=== PATIENT | male | born 1965 | race Caucasian/White ===

== ENCOUNTER 2016-11-01 18:11 | Inpatient (IN) | payer BC ==
[~2016-11-01] VITALS: Ht 170.2 cm; Wt 61.2 kg
[2016-11-01] MEDS ORDERED: IV NORMAL SALINE 1000ML BAG 1,000 ML IV SCH (18:47)
[2016-11-01] MEDS ORDERED: NITROGLYCERIN SUBLINGUAL 0.4 MG BOTTLE OF 25. SL PRN (19:00)
[2016-11-01] MEDS ORDERED: ONDANSETRON PF 4 MG/2 ML VIAL. IV ONE (19:00)
[2016-11-01] MEDS ORDERED: FENTANYL PF 100 MCG/2 ML VIAL. IV PRN ×2 (19:00→22:15)
[2016-11-01] MEDS ORDERED: ASPIRIN 81 MG TAB.CHEW PO ONE (19:00)
[2016-11-01 19:26] LABS: BASO % 0 % (0-3); EOS % 3 % (0-3); HEMATOCRIT 43.1 % (39.0-53.0); HEMOGLOBIN 14.6 g/dL (13.0-17.5); LYMPH # 3.2 x10^3/uL (1.0-4.8); LYMPH % 31 % (24-48); MEAN CORPUSCULAR HEMOGLOBIN 31 pg (25-35); MEAN CORPUSCULAR HGB CONC 34 g/dL (31-37); MEAN CORPUSCULAR VOLUME 91 fL (79-100); MONO % 9 % (0-9); NEUT % 58 % (31-73); PLATELET COUNT 375 x10^3/uL (140-400); RED BLOOD COUNT 4.75 x10^6/uL (4.30-5.70); RED CELL DISTRIBUTION WIDTH 12.8 % (11.5-14.5); WHITE BLOOD COUNT 10.6 x10^3/uL (4.0-11.0)
[2016-11-01 19:41] LABS: CALCIUM 9.2 mg/dL (8.5-10.1); CREATININE 0.9 mg/dL (0.7-1.3); GFR 88.3; POTASSIUM 5.5 mmol/L (3.5-5.1)
[2016-11-01 19:47] LABS: ALBUMIN 3.7 g/dL (3.4-5.0); DIRECT BILIRUBIN 0.1 mg/dL (0.0-0.2); MAGNESIUM 2.2 mg/dL (1.8-2.4); TOTAL BILIRUBIN 0.3 mg/dL (0.2-1.0); TOTAL PROTEIN 7.4 g/dL (6.4-8.2)
[2016-11-01 19:56] LABS: CKMB INDEX 1.1 % (0-4); CKMB MASS 1.2 ng/mL (0.0-3.6)
--- NOTE | 2016-11-01 20:57 | PHYS DOC ---
Past Medical History Past Medical History: CAD, High Cholesterol, Hypertension, [facility] Past Surgical History: Other Additional Past Surgical Histo: HEART CATH STENTS X'S 2 Alcohol Use: Occasionally Drug Use: None Adult General Chief Complaint Chief Complaint: CHEST PAIN HPI HPI Patient is a 51 year old male who presents with complaint of substernal chest pain. Patient states his symptoms started approximately 1 hour prior to arrival. Patient states that he was driving in his car when symptoms began. The patient states that he thought it felt like indigestion, however started become substernal pressure. Patient states that he has had similar symptoms with history of coronary artery disease requiring placement of stents. Patient had mild nausea associated with symptoms. Patient rates his pain currently as 2 out of 10. The patient states that he took a full strength aspirin prior to arrival. Patient follows with Dr. Leon of cardiology as outpatient. Patient states that he last had a stress test proximate 1 year ago. Patient has not had a recent cardiac catheterization. Patient states that his current symptoms are consistent when he had his previous myocardial infarction. Review of Systems Review of Systems Constitutional: Denies fever or chills [] Eyes: Denies change in visual acuity, redness, or eye pain [] HENT: Denies nasal congestion or sore throat [] Respiratory: Denies cough or shortness of breath [] Cardiovascular: Chest pain [] GI: Nausea, denies abdominal pain, vomiting, bloody stools or diarrhea [] : Denies dysuria or hematuria [] Musculoskeletal: Denies back pain or joint pain [] Integument: Denies rash or skin lesions [] Neurologic: Denies headache, focal weakness or sensory changes [] Endocrine: Denies polyuria or polydipsia [] Current Medications Current Medications Current Medications Medications (Trade) Dose Ordered Sig/[facility] Start Time Stop Time Status Last Admin Dose Admin Aspirin 324 mg 324 mg 1X ONCE 11/01/16 19:00 11/01/16 19:00 DC Fentanyl Citrate (Fentanyl 2ml Vial) 50 mcg PRN Q15MIN PRN 11/01/16 19:00 11/02/16 18:59 Nitroglycerin (Nitrostat) 0.4 mg PRN Q5MIN PRN 11/01/16 19:00 11/02/16 18:59 Ondansetron HCl (Zofran) 4 mg 1X ONCE 11/01/16 19:00 11/01/16 19:12 DC 1/3/17 19:21 4 MG Sodium Chloride (Iv Sodium Chloride 0.9% 1000ml Bag) 1,000 ml @ 100 mls/hr Q10H 11/01/16 18:47 11/02/16 04:46 11/01/16 19:22 100 MLS/HR Allergies Allergies Allergies Coded Allergies Type Severity Reaction Last Updated Verified No Known Drug Allergies 11/01/16 No Physical Exam Physical Exam Constitutional: Well developed, well nourished, no acute distress, non-toxic appearance. [] HENT: Normocephalic, atraumatic, bilateral external ears normal, oropharynx moist, no oral exudates, nose normal. [] Eyes: PERRLA, EOMI, conjunctiva normal, no discharge. [] Neck: Normal range of motion, no tenderness, supple, no stridor. [] Cardiovascular:Heart rate regular rhythm, no murmur [] Lungs & Thorax: Bilateral breath sounds clear to auscultation [] Abdomen: Bowel sounds normal, soft, no tenderness, no masses, no pulsatile masses. [] Skin: Warm, dry, no erythema, no rash. [] Back: No tenderness, no CVA tenderness. [] Extremities: No tenderness, no cyanosis, no clubbing, ROM intact, no edema. [] Neurologic: Alert and oriented X 3, normal motor function, normal sensory function, no focal deficits noted. [] Current Patient Data Vital Signs Vital Signs Date Time Temp Pulse Resp B/P Pulse Ox O2 Delivery O2 Flow Rate FiO2 11/01/16 18:11 97.6 58 20 129/84 99 Room Air 97.6 Lab Values Laboratory Tests Test 11/01/16 19:17 White Blood Count 10.6x10^3/uL (4.0-11.0) Red Blood Count 4.75x10^6/uL (4.30-5.70) Hemoglobin 14.6g/dL (13.0-17.5) Hematocrit 43.1% (39.0-53.0) Mean Corpuscular Volume 91fL (79-100) Mean Corpuscular Hemoglobin 31pg (25-35) Mean Corpuscular Hemoglobin Concent 34g/dL (31-37) Red Cell Distribution Width 12.8% (11.5-14.5) Platelet Count 375x10^3/uL (140-400) Neutrophils (%) (Auto) 58% (31-73) Lymphocytes (%) (Auto) 31% (24-48) Monocytes (%) (Auto) 9% (0-9) Eosinophils (%) (Auto) 3% (0-3) Basophils (%) (Auto) 0% (0-3) Neutrophils # (Auto) 6.1x10^3uL (1.8-7.7) Lymphocytes # (Auto) 3.2x10^3/uL (1.0-4.8) Monocytes # (Auto) 0.9x10^3/uL (0.0-1.1) Eosinophils # (Auto) 0.3x10^3/uL (0.0-0.7) Basophils # (Auto) 0.0x10^3/uL (0.0-0.2) Sodium Level 142mmol/L (136-145) Potassium Level 5.5mmol/L (3.5-5.1) H Chloride Level 105mmol/L (98-107) Carbon Dioxide Level 31mmol/L (21-32) Anion Gap 6 (6-14) Blood Urea Nitrogen 12mg/dL (8-26) Creatinine 0.9mg/dL (0.7-1.3) Estimated GFR (Cockcroft-Gault) 88.3 Glucose Level 98mg/dL (70-99) Calcium Level 9.2mg/dL (8.5-10.1) Magnesium Level 2.2mg/dL (1.8-2.4) Total Bilirubin 0.3mg/dL (0.2-1.0) Direct Bilirubin 0.1mg/dL (0.0-0.2) Aspartate Amino Transferase (AST) 20U/L (15-37) Alanine Aminotransferase (ALT) 31U/L (16-63) Alkaline Phosphatase 89U/L (46-116) Creatine Kinase 107U/L (39-308) Creatine Kinase MB (Mass) 1.2ng/mL (0.0-3.6) Creatine Kinase MB Relative Index 1.1% (0-4) Troponin I Quantitative < 0.017ng/mL (0.000-0.055) NG-Qqz-U-Type Natriuretic Peptide 155pg/mL (0-124) H Total Protein 7.4g/dL (6.4-8.2) Albumin 3.7g/dL (3.4-5.0) Lipase 256U/L (73-393) Laboratory Tests 11/01/16 19:17 Laboratory Tests 11/01/16 19:17 EKG EKG Interpreted by me: Heart rate 80, sinus rhythm, normal intervals, leftward axis , T-wave inversions in leads V2 through V5, no acute ST elevations or depressions [] Radiology/Procedures Radiology/Procedures One view AP chest x-ray interpreted by me: No infiltrate, no effusion, normal cardiac silhouette [] Course & Med Decision Making Course & Med Decision Making Pertinent Labs and Imaging studies reviewed. (See chart for details) The patient's initial lab work does not reveal elevated cardiac enzymes. The patient has T-wave inversions in his EKG through contiguous leads. There is no EKG to compare with at this time, thus we will assume that these changes may be acute. The patient was treated with nitroglycerin with improvement in symptoms. Due to potential EKG abnormalities and patient's history of myocardial infarction, the patient will need to be admitted to the hospital for further workup and rule out. I spoke with Dr. Hanson of cardiology who will follow with patient in hospital. Dragon Disclaimer Dragon Disclaimer This electronic medical record was generated, in whole or in part, using a voice recognition dictation system. Departure Departure Impression: Primary Impression: Chest pain Additional Impressions: History of myocardial infarction Abnormal EKG Disposition: ADMITTED INPATIENT Admitting Physician: Other Condition: STABLE Referrals: TYREE LEON MD (PCP) Problem Qualifiers Primary Impression: Chest pain Chest pain type: unspecified Qualified Code: R07.9 - Chest pain, unspecified DAYTON BARTHOLOMEW MD Nov 01, 2016 20:57
[2016-11-01] MEDS ORDERED: ACETAMINOPHEN 325 MG TABLET. PO PRN (22:15)
[2016-11-01] MEDS ORDERED: ONDANSETRON PF 4 MG/2 ML VIAL. IV PRN (22:15)
[2016-11-01 22:36] VITALS: BP 133/86
[2016-11-01] MEDS: IV NORMAL SALINE 1000ML BAG 1,000 ML IV SCH (22:46)
[2016-11-01] MEDS ORDERED: ATOR40TA PO (23:30)
[2016-11-01] MEDS ORDERED: CARV12.5 PO (23:30)
[2016-11-01] MEDS ORDERED: PRAS10TA4 PO (23:30)
[2016-11-01] MEDS ORDERED: LISI-338 PO (23:30)
--- NOTE | 2016-11-01 23:32 | ACF ---
Admission Forms Criteria TELEMETRY CARE Telemetry Admission Guidelines (Place 'X' for any and all applicable criteria): Admission to telemetry [A] may be indicated for ANY ONE of the following(1)(2)(3 )(4)(5): [X]I. Cardiac disease, including ANY ONE of the following (9)(10)(11)(12)(13 ): [ ]a) Postacute PR [ ]b) Low-risk patients with ST-segment elevation PR who have undergone successful percutaneous coronary intervention [ ]c) Unstable angina [X]d) Suspected PR (until it is ruled out) [ ]e) Post cardiac surgery (first 48 to 72 hours unless complications occur) [ ]f) Acute arrhythmias (including significant tachycardia or bradycardia) [B] [ ]g) Firing of an implantable cardioverter defibrillator [C] [ ]h) Suspected pacemaker or implantable cardioverter defibrillator malfunction (10) [ ]i) New administration or adjustment of an antiarrhythmic drug [D ] [ ]j) Child admitted for acute congestive heart failure [ ]j) Long QT syndrome [ ]k) Advanced heart block (eg, second-degree Mobitz type II, third- degree heart block) [ ]l) Acute myocarditis or pericarditis [ ]m) Short-term (ambulatory or inpatient) monitoring after a cardiac procedure as indicated by ANY ONE of the following [E]: [ ]i) Electrophysiologic studies [ ]ii) Percutaneous coronary intervention with stent placement [ ]iii) Pacemaker placement with cardiac conduction defect [ ]iv) Implantable cardiac defibrillator placement [ ]II. Drug overdose or poisoning with substance that causes arrhythmias or QT prolongation (eg, phenothiazines, sympathomimetic agents, cyclic antidepressants, digitalis, antiarrhythmic drugs)(15) [ ]III. Short-term (ambulatory or inpatient) monitoring after therapeutic or diagnostic procedure requiring conscious sedation or anesthesia (eg, endoscopy, elective cardioversion) [ ]IV. Acute cerebrovascular even[F](18) [ ]V. Massive blood transfusion (eg, at least 10 units of packed red blood cells in 24 hours) [ ]. Variceal bleeding after endoscopy, sclerotherapy, or IV vasopressin [ ]VII. Uncorrected electrolyte abnormalities associated with an increased risk of dangerous arrhythmia [G]; examples include [ ]a) Hyperkalemia with attributable ECG changes [ ]b) Potassium greater than 6.5 mmol/L (mEq/L) in a patient without history of chronic renal disease [ ]c) Prolonged QT attributed to hypokalemia, hypomagnesemia, or hypocalcemia [ ]VIII.Unexplained syncope or other neurologic event suspected of being due to arrhythmia due to a finding that increases risk; examples include(19)(20)(21): [ ]a) High-risk ECG findings (eg, bifascicular block, bradycardia, abnormal QT interval, ventricular pre- excitation) [ ]b) History of previous syncope due to arrhythmia [ ]c) Abnormal ventricular function (eg, reduced ejection fraction ) [ ]d) Exertional or supine syncope [ ]e) Concerning syncope characteristics (eg, sudden loss of consciousness without prodrome) [ ]f) Family history of sudden [ ]g) Use of arrhythmogenic medication [ ]h) Suspected cardiac ischemia [ ]i) Known channelopathy (eg, long QT syndrome, Brugada syndrome, or catecholaminergic paroxysmal ventricular tachycardia) [ ]j) Known structural heart disease (eg, hypertrophic cardiomyopathy , severe valvular disease) [ ]k) Palpitations preceding syncope The original [employer] content created by [employer] has been revised. The portions of the content which have been revised are identified through the use of italic text or in bold, and [employer] has neither reviewed nor approved the modified material. All other unmodified content is copyright [employer] Please see references footnoted in the original [employer] edition 2016 Admission Criteria Met?: Yes MADHAVI MURPHY Nov 01, 2016 23:32
[2016-11-02] VITALS (16 sets, daily range): BP systolic 97–130; BP diastolic 65–89
--- NOTE | 2016-11-02 00:35 | HP ---
ADMIT DATE: 11/01/2016 CHIEF COMPLAINT: Chest pain. HISTORY OF PRESENT ILLNESS: The patient is a 51-year-old gentleman who presented with substernal chest pain that started approximately an hour prior to presentation to the Emergency Room. He relates that this started while driving home. Initially, it felt like indigestion; however, with persistence and worsening as well as radiation towards his neck, it reminded him more of the symptoms he had with previous heart attacks 3 and 6 years ago. He therefore presented immediately to the Emergency Room. On further questioning, he also admits to mild nausea associated with his symptoms. Denies any diaphoresis or shortness of breath. Have had no fevers or infectious symptoms recently. PAST MEDICAL HISTORY: CAD status post OR 3 and 6 years ago. Roving Winder is Dr. Leon. Hypertension, hypercholesterolemia. FAMILY HISTORY: Significant for premature heart disease with father of OR at 57. Paternal uncle, cardiac at 32. Mother also heart disease at age 63. SOCIAL HISTORY: No toxic habits. Lives with family. ALLERGIES: No known drug allergies. MEDICATIONS: MAR reconciled with home medications. REVIEW OF SYSTEMS: Positive as per HPI. Rest of organ system review is negative say for mild knee instability/pain due to old injury. He is scheduled for ACS repair next week. PHYSICAL EXAMINATION: VITAL SIGNS: From today show a blood pressure of 133/86, heart rate of 87, respiratory rate at 19. He is afebrile. GENERAL: This is a well-nourished 51-year-old gentleman, alert and oriented, in no acute distress. HEENT: Shows no scleral icterus. Oral mucosa is pink and moist. NECK: Supple, without any lymphadenopathy. LUNGS: Clear to auscultation bilaterally. HEART: Regular rate and rhythm without any murmurs. ABDOMEN: Has positive bowel sounds, soft, nontender. EXTREMITIES: Show no edema. SKIN: Warm, soft and dry without any rash. LABORATORY DATA: CBC with WBC of 10.6, hemoglobin 14.6, platelets of 375. Chemistries with a BUN and creatinine of 12 and 0.9, potassium at 5.5. Electrolytes otherwise within normal limit as are LFTs. Initial cardiac enzymes all negative. IMAGING: Chest x-ray in the Emergency Room reviewed by myself shows no cardiopulmonary abnormalities. ASSESSMENT AND PLAN: The patient is a 51-year-old gentleman with significant heart history, now presenting with chest pain reminiscent of his previous myocardial infarction symptoms. We will admit for serial enzymes and EKGs. Cardiac consult will be obtained. The patient relates that he had an echo about 2 years ago, exercise stress test within the past year by Dr. Leon. We will await further input. In the meantime, we will continue all his cardiac meds. We will start on PPI for prophylaxis as well as Lovenox. ALLEN HERRMANN MD DR: UR/nts JOB#: [id number] / [id number] TYREE Mackenzie MD [facility]
[2016-11-02 04:19] LABS: BASO # 0.1 x10^3/uL (0.0-0.2); BASO % 1 % (0-3); EOS % 4 % (0-3); HEMATOCRIT 43.5 % (39.0-53.0); HEMOGLOBIN 14.6 g/dL (13.0-17.5); LYMPH # 3.7 x10^3/uL (1.0-4.8); LYMPH % 33 % (24-48); MEAN CORPUSCULAR HEMOGLOBIN 30 pg (25-35); MEAN CORPUSCULAR HGB CONC 34 g/dL (31-37); MEAN CORPUSCULAR VOLUME 90 fL (79-100); MONO % 8 % (0-9); NEUT % 55 % (31-73); PLATELET COUNT 338 x10^3/uL (140-400); RED BLOOD COUNT 4.85 x10^6/uL (4.30-5.70); RED CELL DISTRIBUTION WIDTH 12.9 % (11.5-14.5); WHITE BLOOD COUNT 11.3 x10^3/uL (4.0-11.0)
[2016-11-02 04:41] LABS: CALCIUM 8.7 mg/dL (8.5-10.1); CREATININE 0.8 mg/dL (0.7-1.3); GFR 101.1; POTASSIUM 4.2 mmol/L (3.5-5.1)
[2016-11-02] MEDS ORDERED: HEPARIN 25,000UTS/500ML PREMIX 500 ML IV ONE (06:00)
[2016-11-02] MEDS ORDERED: HEPARIN for IV BOLUS 10,000 UNIT/10 ML VIAL. IV ONE (06:00)
[2016-11-02 06:34] LABS: INR 1.1 (0.8-1.1); PROTHROMBIN TIME PATIENT 13.6 SEC (11.7-14.0)
--- NOTE | 2016-11-02 06:43 | EKG ---
[facility] [address] [place] [address] Test Date: 2016-11-01 Test Time: 18:20:28 Pat Name: CARA SOUSA Department: Room: 110 1 Gender: M Form Layer: : 1965 Requested By: DAYTON BARTHOLOMEW Order Number: [id number] Reading MD: Brenda Peña Measurements Intervals [place] Rate: 80 P: 51 NV: 164 QRS: -15 QRSD: 70 T: 59 QT: 364 QTc: 423 Interpretive Statements SINUS RHYTHM LEFTWARD AXIS LOW LIMB LEAD VOLTAGE QRS(T) CONTOUR ABNORMALITY CONSISTENT WITH ANTEROSEPTAL INFARCT AGE UNDETERMINED T ABNORMALITY IN ANTERIOR LEADS Electronically Signed On 11-06-2016 21:46:35 KILN PACKER by Brenda Peña
[2016-11-02] MEDS: IV NORMAL SALINE 1000ML BAG 1,000 ML IV SCH (06:45)
--- NOTE | 2016-11-02 07:53 | EKG ---
[facility] [address] [place] [address] Test Date: 2016-11-02 Test Time: 07:53:09 Pat Name: CARA SOUSA Department: Room: 110 1 Gender: M Volcanology Teacher: BRITT : 1965 Requested By: ALLEN HERRMANN Order Number: [id number] Reading MD: Christophe Ruano Measurements Intervals [place] Rate: 80 P: 47 ME: 174 QRS: 4 QRSD: 70 T: 73 QT: 374 QTc: 435 Interpretive Statements SINUS RHYTHM LOW LIMB LEAD VOLTAGE QRS(T) CONTOUR ABNORMALITY CONSISTENT WITH POSSIBLE OLD ANTEROSEPTAL INFARCT ABNORMAL ECG RI6.01 Compared to ECG 03/08/2013 12:46:01 Left-axis deviation no longer present Myocardial infarct finding still present Electronically Signed On 11-06-2016 12:04:44 ORTHODONTIST by Christophe Ruano
[2016-11-02] MEDS ORDERED: CARVEDILOL 12.5 MG TABLET PO SCH (08:00)
--- NOTE | 2016-11-02 08:50 | RAD ---
Portable chest, 11/01/2016: History: Chest pain, hypertension Comparison is made to a study from 03/07/2013. The heart size and pulmonary vascularity are normal. No pulmonary infiltrates are seen. There is no evidence of pleural fluid. IMPRESSION: No acute cardiopulmonary abnormality is detected.
[2016-11-02] MEDS ORDERED: LISINOPRIL 5 MG TABLET. PO SCH (09:00)
[2016-11-02] MEDS ORDERED: PRASUGREL 10 MG TABLET. PO SCH (09:00)
[2016-11-02] MEDS ORDERED: IOHEXOL 300 MG/ML 100ML VIAL. ONE (09:42)
[2016-11-02] MEDS ORDERED: HEPARIN for ARTERIAL LINE 1,500 ML ONE (09:42)
[2016-11-02] MEDS ORDERED: LIDOCAINE 2% 20 ML VIAL. ONE (09:42)
--- NOTE | 2016-11-02 09:53 | PDOC2 ---
CARDIAC CONSULT DATE OF CONSULT Date of Consult DATE: 11/02/16 TIME: 09:38 REASON FOR CONSULT Reason for Consult: Chest pain REFERRING PHYSICIAN Referring Physician: Ryan SOURCE Source: Chart review, Patient HISTORY OF PRESENT ILLNESS HISTORY OF PRESENT ILLNESS This is a pleasant 51 yo male admitted for complains of chest pain. He was driving home yesterday when he started having squeezing "crushing" retrosternal nonradiating pain. He has had possibly a stomach flu over a week ago that made him had diarrhea and vomiting but since then he has been feeling intermittent bloating, indigestion symptoms that sometimes he takes baking soda. He does not take any pepcid or prilosec. He also has been feeling more sensation of skipping beats at rest. With his CP he denies any diaphoresis, palpitations, SOA, nausea or vomiting. Denies any VTE, falls, recent injury. No recent fever or chills. He has CAD and had a stent in 2009 and recently seen his lead janitor 08/2016 and had a normal stress test 03/2016 as well. He has been doing well activity tolerance lentz till his symptoms yesterday. His CP lasted from 5 PM yesterday to 3AM today. He has been compliant with his medications. PAST MEDICAL HISTORY Cardiovascular: CAD, HTN, Hyperlipidemia Pulmonary: No pertinent hx CENTRAL NERVOUS SYSTEM: Other (No pertinent history) GI: No pertinent hx Heme/Onc: No pertinent hx Hepatobiliary: No pertinent hx Psych: No pertinent hx Musculoskeletal: Osteoarthritis Rheumatologic: No pertinent hx Infectious disease: No pertinent hx ENT: No pertinent hx Renal/: No pertinent hx Endocrine: No pertinent hx Dermatology: No pertinent hx PAST SURGICAL HISTORY Past Surgical History: Arthroscopy (right knee) FAMILY HISTORY Family History: Coronary Artery Disease (father and fatherside uncles), Heart Disease (mother with CHF) CURRENT MEDICATIONS CURRENT MEDICATIONS Current Medications Medications (Trade) Dose Ordered Sig/Lupe Route PRN Reason Start Time Stop Time Status Last Admin Dose Admin Sodium Chloride (Iv Sodium Chloride 0.9% 1000ml Bag) 1,000 ml @ 100 mls/hr Q10H IV 11/01/16 18:47 11/02/16 04:46 DC 11/01/16 19:22 Ondansetron HCl 4 mg 4 mg 1X ONCE IV 11/01/16 19:00 11/01/16 19:12 DC 11/01/16 19:21 Sodium Chloride 1,000 ml @ 75 mls/hr [id number] IV 11/01/16 22:00 11/02/16 21:59 11/02/16 06:45 Heparin Sodium/ Dextrose 500 ml @ 0 mls/hr 1X ONCE IV 11/02/16 06:00 11/02/16 06:01 DC 11/02/16 06:42 Heparin Sodium (Porcine) 5,000 unit 1X ONCE IV 11/02/16 06:00 11/02/16 06:01 DC 11/02/16 06:37 ALLERGIES ALLERGIES: Coded Allergies: No Known Drug Allergies (Unverified , 11/01/16) ROS Review of System 14 point ROS PHYSICAL EXAM General: Alert, Oriented X3, Cooperative, No acute distress HEENT: Atraumatic, Mucous membr. moist/pink Lungs: Clear to auscultation, Normal air movement Heart: Regular rate, Normal S1, Normal S2, No murmurs Abdomen: Soft, No tenderness Extremities: No cyanosis, No edema Skin: No breakdown, No significant lesion Neuro: Normal speech, Sensation intact Psych/Mental Status: Mental status NL, Mood NL MUSCULOSKELETAL: Osteoarthritic changes both hands, Other (pectus excavatum) VITALS VITALS Vital Signs Date Time Temp Pulse Resp B/P Pulse Ox O2 Delivery O2 Flow Rate FiO2 11/02/16 02:52 97.9 81 19 130/79 98 Room Air 97.9 LABS Lab: Laboratory Tests Test 11/01/16 19:17 11/02/16 03:50 11/02/16 05:30 White Blood Count 10.6x10^3/uL (4.0-11.0) 11.3x10^3/uL (4.0-11.0) Red Blood Count 4.75x10^6/uL (4.30-5.70) 4.85x10^6/uL (4.30-5.70) Hemoglobin 14.6g/dL (13.0-17.5) 14.6g/dL (13.0-17.5) Hematocrit 43.1% (39.0-53.0) 43.5% (39.0-53.0) Mean Corpuscular Volume 91fL (79-100) 90fL (79-100) Mean Corpuscular Hemoglobin 31pg (25-35) 30pg (25-35) Mean Corpuscular Hemoglobin Concent 34g/dL (31-37) 34g/dL (31-37) Red Cell Distribution Width 12.8% (11.5-14.5) 12.9% (11.5-14.5) Platelet Count 375x10^3/uL (140-400) 338x10^3/uL (140-400) Neutrophils (%) (Auto) 58% (31-73) 55% (31-73) Lymphocytes (%) (Auto) 31% (24-48) 33% (24-48) Monocytes (%) (Auto) 9% (0-9) 8% (0-9) Eosinophils (%) (Auto) 3% (0-3) 4% (0-3) Basophils (%) (Auto) 0% (0-3) 1% (0-3) Neutrophils # (Auto) 6.1x10^3uL (1.8-7.7) 6.2x10^3uL (1.8-7.7) Lymphocytes # (Auto) 3.2x10^3/uL (1.0-4.8) 3.7x10^3/uL (1.0-4.8) Monocytes # (Auto) 0.9x10^3/uL (0.0-1.1) 0.9x10^3/uL (0.0-1.1) Eosinophils # (Auto) 0.3x10^3/uL (0.0-0.7) 0.4x10^3/uL (0.0-0.7) Basophils # (Auto) 0.0x10^3/uL (0.0-0.2) 0.1x10^3/uL (0.0-0.2) Sodium Level 142mmol/L (136-145) 144mmol/L (136-145) Potassium Level 5.5mmol/L (3.5-5.1) 4.2mmol/L (3.5-5.1) Chloride Level 105mmol/L (98-107) 106mmol/L (98-107) Carbon Dioxide Level 31mmol/L (21-32) 28mmol/L (21-32) Anion Gap 6 (6-14) 10 (6-14) Blood Urea Nitrogen 12mg/dL (8-26) 10mg/dL (8-26) Creatinine 0.9mg/dL (0.7-1.3) 0.8mg/dL (0.7-1.3) Estimated GFR (Cockcroft-Gault) 88.3 101.1 Glucose Level 98mg/dL (70-99) 97mg/dL (70-99) Calcium Level 9.2mg/dL (8.5-10.1) 8.7mg/dL (8.5-10.1) Magnesium Level 2.2mg/dL (1.8-2.4) Total Bilirubin 0.3mg/dL (0.2-1.0) Direct Bilirubin 0.1mg/dL (0.0-0.2) Aspartate Amino Transf (AST/SGOT) 20U/L (15-37) Alanine Aminotransferase (ALT/SGPT) 31U/L (16-63) Alkaline Phosphatase 89U/L (46-116) Creatine Kinase 107U/L (39-308) Creatine Kinase MB (Mass) 1.2ng/mL (0.0-3.6) Creatine Kinase MB Relative Index 1.1% (0-4) Troponin I Quantitative < 0.017ng/mL (0.000-0.055) 2.705ng/mL (0.000-0.055) MA-Vjb-G-Type Natriuretic Peptide 155pg/mL (0-124) Total Protein 7.4g/dL (6.4-8.2) Albumin 3.7g/dL (3.4-5.0) Lipase 256U/L (73-393) Prothrombin Time 13.6SEC (11.7-14.0) Prothromb Time International Ratio 1.1 (0.8-1.1) Activated Partial Thromboplast Time 32SEC (24-38) ASSESSMENT/PLAN ASSESSMENT/PLAN 1. NSTEMI: notable for chest pain. EKG SR with ST changes noted, Troponin normal then 2.7. Recommend C. Risks and benefits and agreeable to proceed. ASA and currently on hepatin drip. 2. CAD: PCI/stent 03/2010 to LAD. Continue with secondary prevention. TTE to commence as well. 3. GERD: on effient at home due to possible stomach irritation and was taken off ASA. Will place on PPI. 4. HTN: controlled. Will continue BB/ACEi per BP response post cath 5. HLP: lipi panel, will continue statin and adjust per level 6. Right knee meniscal tear: due for right knee arthroscopic procedure next week and has been cancelled pending cardiac workup. Problems: JESSICA MONTANO APRN Nov 02, 2016 09:53
[2016-11-02] MEDS ORDERED: FENTANYL PF 100 MCG/2 ML VIAL. ONE (10:19)
[2016-11-02] MEDS ORDERED: MIDAZOLAM HCL 2 MG/2 ML VIAL. ONE (10:20)
[2016-11-02 10:23] LABS: CHOLESTEROL/HDL RATIO 3.2
[2016-11-02] MEDS ORDERED: FENTANYL PF 100 MCG/2 ML VIAL. IV ONE (10:30)
[2016-11-02] MEDS ORDERED: MIDAZOLAM HCL 2 MG/2 ML VIAL. IV ONE (10:30)
[2016-11-02] MEDS ORDERED: LIDOCAINE 1% / SOD BICARB 8.4% 20 ML VIAL. IJ ONE (10:30)
[2016-11-02] MEDS ORDERED: IOHEXOL 300 MG/ML 100ML VIAL. IART ONE (10:30)
[2016-11-02] MEDS ORDERED: BIVALIRUDIN 250 MG VIAL IV ONE (10:32)
[2016-11-02] MEDS ORDERED: CONTRAST GIVEN MC PRN (10:45)
--- NOTE | 2016-11-02 11:21 | PDOC4 ---
Operative Note Operative Note Brief cath note. LV 108/14, AO 104 80 Coronaries. Left main. 60% proximal lesion. LAD. 60% restenosis in mid stent. LAD wraps around the apex. LCX. 20% mid lesion, 75% proximal RI branch lesion. RCA. Non dominant. Patent stent. LV. EF estimated at 35%. Distal inferior and apical hypokinesis. Will restart heparin in 4 hours. DC Effient. Obtain old records. Will discuss with CV and CV surgery with possible future CABG (Effient on hold). Discussed with the patient and his family. Full report to follow. RAYMOND GUTIERREZ MD Nov 02, 2016 11:21
[2016-11-02] MEDS ORDERED: IV NORMAL SALINE 1000ML BAG 1,000 ML IV SCH (11:22)
[2016-11-02] MEDS ORDERED: 0.9 % SODIUM CHLORIDE 10 ML DISP.SYRIN. IV PRN (11:30)
[2016-11-02] MEDS ORDERED: NITROGLYCERIN SUBLINGUAL 0.4 MG BOTTLE OF 25. SL PRN (11:30)
[2016-11-02] MEDS: PANTOPRAZOLE 40 MG TABLET. PO SCH (13:52)
--- NOTE | 2016-11-02 13:57 | PDOC ---
PROGRESS NOTES Chief Complaint Chief Complaint ACS ASSESSMENT AND PLAN: 1. AMI: cath done this AM: 60% LAD occlusion mid-stent, 60% occlusion L main. candidate for CABG. consult to CV surgery 2. Anticoag: restart heparin post CABG. hold oral anti-plt agents (in anticipation of surgery) 3. HTN: cont home meds 4. HLD: not on statin. obtain lipid profile. 5. Prophylaxis: PPI, (heparin) Vitals Vitals Vital Signs Date Time Temp Pulse Resp B/P Pulse Ox O2 Delivery O2 Flow Rate FiO2 11/02/16 13:00 74 10 107/72 98 Room Air 11/02/16 11:15 97.8 97.8 11/02/16 10:59 2.0 Physical Exam General: Alert, Oriented X3, Cooperative, No acute distress Heart: Regular rate, Normal S1, Normal S2, No murmurs Lungs: Clear Abdomen: Normal bowel sounds, Soft, No tenderness Extremities: No cyanosis, No edema Skin: No breakdown Labs LABS Laboratory Tests Test 11/01/16 19:17 11/02/16 03:50 11/02/16 05:30 White Blood Count 10.6x10^3/uL (4.0-11.0) 11.3x10^3/uL (4.0-11.0) Red Blood Count 4.75x10^6/uL (4.30-5.70) 4.85x10^6/uL (4.30-5.70) Hemoglobin 14.6g/dL (13.0-17.5) 14.6g/dL (13.0-17.5) Hematocrit 43.1% (39.0-53.0) 43.5% (39.0-53.0) Mean Corpuscular Volume 91fL (79-100) 90fL (79-100) Mean Corpuscular Hemoglobin 31pg (25-35) 30pg (25-35) Mean Corpuscular Hemoglobin Concent 34g/dL (31-37) 34g/dL (31-37) Red Cell Distribution Width 12.8% (11.5-14.5) 12.9% (11.5-14.5) Platelet Count 375x10^3/uL (140-400) 338x10^3/uL (140-400) Neutrophils (%) (Auto) 58% (31-73) 55% (31-73) Lymphocytes (%) (Auto) 31% (24-48) 33% (24-48) Monocytes (%) (Auto) 9% (0-9) 8% (0-9) Eosinophils (%) (Auto) 3% (0-3) 4% (0-3) Basophils (%) (Auto) 0% (0-3) 1% (0-3) Neutrophils # (Auto) 6.1x10^3uL (1.8-7.7) 6.2x10^3uL (1.8-7.7) Lymphocytes # (Auto) 3.2x10^3/uL (1.0-4.8) 3.7x10^3/uL (1.0-4.8) Monocytes # (Auto) 0.9x10^3/uL (0.0-1.1) 0.9x10^3/uL (0.0-1.1) Eosinophils # (Auto) 0.3x10^3/uL (0.0-0.7) 0.4x10^3/uL (0.0-0.7) Basophils # (Auto) 0.0x10^3/uL (0.0-0.2) 0.1x10^3/uL (0.0-0.2) Sodium Level 142mmol/L (136-145) 144mmol/L (136-145) Potassium Level 5.5mmol/L (3.5-5.1) 4.2mmol/L (3.5-5.1) Chloride Level 105mmol/L (98-107) 106mmol/L (98-107) Carbon Dioxide Level 31mmol/L (21-32) 28mmol/L (21-32) Anion Gap 6 (6-14) 10 (6-14) Blood Urea Nitrogen 12mg/dL (8-26) 10mg/dL (8-26) Creatinine 0.9mg/dL (0.7-1.3) 0.8mg/dL (0.7-1.3) Estimated GFR (Cockcroft-Gault) 88.3 101.1 Glucose Level 98mg/dL (70-99) 97mg/dL (70-99) Calcium Level 9.2mg/dL (8.5-10.1) 8.7mg/dL (8.5-10.1) Magnesium Level 2.2mg/dL (1.8-2.4) Total Bilirubin 0.3mg/dL (0.2-1.0) Direct Bilirubin 0.1mg/dL (0.0-0.2) Aspartate Amino Transf (AST/SGOT) 20U/L (15-37) Alanine Aminotransferase (ALT/SGPT) 31U/L (16-63) Alkaline Phosphatase 89U/L (46-116) Creatine Kinase 107U/L (39-308) Creatine Kinase MB (Mass) 1.2ng/mL (0.0-3.6) Creatine Kinase MB Relative Index 1.1% (0-4) Troponin I Quantitative < 0.017ng/mL (0.000-0.055) 2.705ng/mL (0.000-0.055) VQ-Goj-T-Type Natriuretic Peptide 155pg/mL (0-124) Total Protein 7.4g/dL (6.4-8.2) Albumin 3.7g/dL (3.4-5.0) Lipase 256U/L (73-393) Triglycerides Level 84mg/dL (0-150) Cholesterol Level 112mg/dL (0-200) LDL Cholesterol, Calculated 60mg/dL (0-100) VLDL Cholesterol, Calculated 17mg/dL (0-40) HDL Cholesterol 35mg/dL (40-60) Cholesterol/HDL Ratio 3.2 Thyroid Stimulating Hormone (TSH) 1.785uIU/mL (0.358-3.74) Prothrombin Time 13.6SEC (11.7-14.0) Prothromb Time International Ratio 1.1 (0.8-1.1) Activated Partial Thromboplast Time 32SEC (24-38) Review of Systems Review of Systems no CP, no SOB Comment Review of Relevant I have reviewed the following items kojo (where applicable) has been applied. Labs Laboratory Tests Test 11/01/16 19:17 11/02/16 03:50 11/02/16 05:30 White Blood Count 10.6x10^3/uL (4.0-11.0) 11.3x10^3/uL (4.0-11.0) Red Blood Count 4.75x10^6/uL (4.30-5.70) 4.85x10^6/uL (4.30-5.70) Hemoglobin 14.6g/dL (13.0-17.5) 14.6g/dL (13.0-17.5) Hematocrit 43.1% (39.0-53.0) 43.5% (39.0-53.0) Mean Corpuscular Volume 91fL (79-100) 90fL (79-100) Mean Corpuscular Hemoglobin 31pg (25-35) 30pg (25-35) Mean Corpuscular Hemoglobin Concent 34g/dL (31-37) 34g/dL (31-37) Red Cell Distribution Width 12.8% (11.5-14.5) 12.9% (11.5-14.5) Platelet Count 375x10^3/uL (140-400) 338x10^3/uL (140-400) Neutrophils (%) (Auto) 58% (31-73) 55% (31-73) Lymphocytes (%) (Auto) 31% (24-48) 33% (24-48) Monocytes (%) (Auto) 9% (0-9) 8% (0-9) Eosinophils (%) (Auto) 3% (0-3) 4% (0-3) Basophils (%) (Auto) 0% (0-3) 1% (0-3) Neutrophils # (Auto) 6.1x10^3uL (1.8-7.7) 6.2x10^3uL (1.8-7.7) Lymphocytes # (Auto) 3.2x10^3/uL (1.0-4.8) 3.7x10^3/uL (1.0-4.8) Monocytes # (Auto) 0.9x10^3/uL (0.0-1.1) 0.9x10^3/uL (0.0-1.1) Eosinophils # (Auto) 0.3x10^3/uL (0.0-0.7) 0.4x10^3/uL (0.0-0.7) Basophils # (Auto) 0.0x10^3/uL (0.0-0.2) 0.1x10^3/uL (0.0-0.2) Sodium Level 142mmol/L (136-145) 144mmol/L (136-145) Potassium Level 5.5mmol/L (3.5-5.1) 4.2mmol/L (3.5-5.1) Chloride Level 105mmol/L (98-107) 106mmol/L (98-107) Carbon Dioxide Level 31mmol/L (21-32) 28mmol/L (21-32) Anion Gap 6 (6-14) 10 (6-14) Blood Urea Nitrogen 12mg/dL (8-26) 10mg/dL (8-26) Creatinine 0.9mg/dL (0.7-1.3) 0.8mg/dL (0.7-1.3) Estimated GFR (Cockcroft-Gault) 88.3 101.1 Glucose Level 98mg/dL (70-99) 97mg/dL (70-99) Calcium Level 9.2mg/dL (8.5-10.1) 8.7mg/dL (8.5-10.1) Magnesium Level 2.2mg/dL (1.8-2.4) Total Bilirubin 0.3mg/dL (0.2-1.0) Direct Bilirubin 0.1mg/dL (0.0-0.2) Aspartate Amino Transf (AST/SGOT) 20U/L (15-37) Alanine Aminotransferase (ALT/SGPT) 31U/L (16-63) Alkaline Phosphatase 89U/L (46-116) Creatine Kinase 107U/L (39-308) Creatine Kinase MB (Mass) 1.2ng/mL (0.0-3.6) Creatine Kinase MB Relative Index 1.1% (0-4) Troponin I Quantitative < 0.017ng/mL (0.000-0.055) 2.705ng/mL (0.000-0.055) AA-Lwe-H-Type Natriuretic Peptide 155pg/mL (0-124) Total Protein 7.4g/dL (6.4-8.2) Albumin 3.7g/dL (3.4-5.0) Lipase 256U/L (73-393) Triglycerides Level 84mg/dL (0-150) Cholesterol Level 112mg/dL (0-200) LDL Cholesterol, Calculated 60mg/dL (0-100) VLDL Cholesterol, Calculated 17mg/dL (0-40) HDL Cholesterol 35mg/dL (40-60) Cholesterol/HDL Ratio 3.2 Thyroid Stimulating Hormone (TSH) 1.785uIU/mL (0.358-3.74) Prothrombin Time 13.6SEC (11.7-14.0) Prothromb Time International Ratio 1.1 (0.8-1.1) Activated Partial Thromboplast Time 32SEC (24-38) Laboratory Tests Test 11/01/16 19:17 11/02/16 03:50 11/02/16 05:30 White Blood Count 10.6x10^3/uL (4.0-11.0) 11.3x10^3/uL (4.0-11.0) Red Blood Count 4.75x10^6/uL (4.30-5.70) 4.85x10^6/uL (4.30-5.70) Hemoglobin 14.6g/dL (13.0-17.5) 14.6g/dL (13.0-17.5) Hematocrit 43.1% (39.0-53.0) 43.5% (39.0-53.0) Mean Corpuscular Volume 91fL (79-100) 90fL (79-100) Mean Corpuscular Hemoglobin 31pg (25-35) 30pg (25-35) Mean Corpuscular Hemoglobin Concent 34g/dL (31-37) 34g/dL (31-37) Red Cell Distribution Width 12.8% (11.5-14.5) 12.9% (11.5-14.5) Platelet Count 375x10^3/uL (140-400) 338x10^3/uL (140-400) Neutrophils (%) (Auto) 58% (31-73) 55% (31-73) Lymphocytes (%) (Auto) 31% (24-48) 33% (24-48) Monocytes (%) (Auto) 9% (0-9) 8% (0-9) Eosinophils (%) (Auto) 3% (0-3) 4% (0-3) Basophils (%) (Auto) 0% (0-3) 1% (0-3) Neutrophils # (Auto) 6.1x10^3uL (1.8-7.7) 6.2x10^3uL (1.8-7.7) Lymphocytes # (Auto) 3.2x10^3/uL (1.0-4.8) 3.7x10^3/uL (1.0-4.8) Monocytes # (Auto) 0.9x10^3/uL (0.0-1.1) 0.9x10^3/uL (0.0-1.1) Eosinophils # (Auto) 0.3x10^3/uL (0.0-0.7) 0.4x10^3/uL (0.0-0.7) Basophils # (Auto) 0.0x10^3/uL (0.0-0.2) 0.1x10^3/uL (0.0-0.2) Sodium Level 142mmol/L (136-145) 144mmol/L (136-145) Potassium Level 5.5mmol/L (3.5-5.1) 4.2mmol/L (3.5-5.1) Chloride Level 105mmol/L (98-107) 106mmol/L (98-107) Carbon Dioxide Level 31mmol/L (21-32) 28mmol/L (21-32) Anion Gap 6 (6-14) 10 (6-14) Blood Urea Nitrogen 12mg/dL (8-26) 10mg/dL (8-26) Creatinine 0.9mg/dL (0.7-1.3) 0.8mg/dL (0.7-1.3) Estimated GFR (Cockcroft-Gault) 88.3 101.1 Glucose Level 98mg/dL (70-99) 97mg/dL (70-99) Calcium Level 9.2mg/dL (8.5-10.1) 8.7mg/dL (8.5-10.1) Magnesium Level 2.2mg/dL (1.8-2.4) Total Bilirubin 0.3mg/dL (0.2-1.0) Direct Bilirubin 0.1mg/dL (0.0-0.2) Aspartate Amino Transf (AST/SGOT) 20U/L (15-37) Alanine Aminotransferase (ALT/SGPT) 31U/L (16-63) Alkaline Phosphatase 89U/L (46-116) Creatine Kinase 107U/L (39-308) Creatine Kinase MB (Mass) 1.2ng/mL (0.0-3.6) Creatine Kinase MB Relative Index 1.1% (0-4) Troponin I Quantitative < 0.017ng/mL (0.000-0.055) 2.705ng/mL (0.000-0.055) DV-Rmh-A-Type Natriuretic Peptide 155pg/mL (0-124) Total Protein 7.4g/dL (6.4-8.2) Albumin 3.7g/dL (3.4-5.0) Lipase 256U/L (73-393) Triglycerides Level 84mg/dL (0-150) Cholesterol Level 112mg/dL (0-200) LDL Cholesterol, Calculated 60mg/dL (0-100) VLDL Cholesterol, Calculated 17mg/dL (0-40) HDL Cholesterol 35mg/dL (40-60) Cholesterol/HDL Ratio 3.2 Thyroid Stimulating Hormone (TSH) 1.785uIU/mL (0.358-3.74) Prothrombin Time 13.6SEC (11.7-14.0) Prothromb Time International Ratio 1.1 (0.8-1.1) Activated Partial Thromboplast Time 32SEC (24-38) Medications Current Medications Aspirin 324 mg 324 mg 1X ONCE PO ; Start 11/01/16 at 19:00; Stop 11/01/16 at 19: 00; Status DC Sodium Chloride (Iv Sodium Chloride 0.9% 1000ml Bag) 1,000 ml @ 100 mls/hr Q10H IV Last administered on 11/01/16 19:22; Start 11/01/16 at 18:47; Stop at 04:46; Status DC Fentanyl Citrate (Fentanyl 2ml Vial) 50 mcg PRN Q15MIN PRN IV PAIN GREATER THAN 3/10; Start 11/01/16 at 19:00; Stop 11/02/16 at 18:59 Ondansetron HCl (Zofran) 4 mg 1X ONCE IV Last administered on 11/01/16 19:21; Start 11/01/16 at 19:00; Stop 11/01/16 at 19:12; Status DC Nitroglycerin (Nitrostat) 0.4 mg PRN Q5MIN PRN SL CP RATING > 1/10; Start at 19:00; Stop 11/02/16 at 18:59 Ondansetron HCl (Zofran) 4 mg PRN Q8HRS PRN IV NAUSEA/VOMITING; Start 11/01/16 at 22:15; Stop 11/02/16 at 22:14 Fentanyl Citrate 50 mcg 50 mcg PRN Q2HR PRN IV PAIN; Start 11/01/16 at 22:15; Stop 11/02/16 at 22:14 Sodium Chloride (Iv Sodium Chloride 0.9% 1000ml Bag) 1,000 ml @ 75 mls/hr [id number] IV Last administered on 11/02/16 06:45; Start 11/01/16 at 22:00; Stop at 12:27; Status DC Acetaminophen (Tylenol) 650 mg PRN Q4HRS PRN PO FEVER; Start 11/01/16 at 22:15; Stop 11/02/16 at 22:14 Atorvastatin Calcium (Lipitor) 40 mg HS PO ; Start 11/02/16 at 21:00 Carvedilol (Coreg) 12.5 mg BIDWMEALS PO ; Start 11/02/16 at 08:00; Stop 11/02/16 at 12:27; Status DC Lisinopril (Prinivil) 5 mg BID PO ; Start 11/02/16 at 09:00; Stop 11/02/16 at 12: 11; Status DC Prasugrel 10 mg 10 mg DAILY PO ; Start 11/02/16 at 09:00; Stop 11/02/16 at 11:23; Status DC Heparin Sodium/ Dextrose 500 ml @ 0 mls/hr 1X ONCE IV Last administered on 11/02 06:42; Start 11/02/16 at 06:00; Stop 11/02/16 at 06:01; Status DC Heparin Sodium (Porcine) 5,000 unit 1X ONCE IV Last administered on 11/02/16 06:37; Start 11/02/16 at 06:00; Stop 11/02/16 at 06:01; Status DC Iohexol 100 ml 100 ml STK-MED ONCE .ROUTE ; Start 11/02/16 at 09:42; Stop at 09:43; Status DC Heparin Sodium/ Sodium Chloride 1,500 ml @ As Directed STK-MED ONCE .ROUTE ; Start 11/02/16 at 09:42; Stop 11/02/16 at 09:43; Status DC Lidocaine HCl 20 ml STK-MED ONCE .ROUTE ; Start 11/02/16 at 09:42; Stop 11/02/16 at 09:43; Status DC Fentanyl Citrate (Fentanyl 2ml Vial) 100 mcg STK-MED ONCE .ROUTE ; Start at 10:19; Stop 11/02/16 at 10:20; Status DC Midazolam HCl (Versed) 2 mg STK-MED ONCE .ROUTE ; Start 11/02/16 at 10:20; Stop 11/02/16 at 10:21; Status DC Heparin Sodium/ Sodium Chloride 1,000 unit 1X ONCE IART Last administered on 10:58; Start 11/02/16 at 10:30; Stop 11/02/16 at 10:33; Status DC Lidocaine/Sodium Bicarbonate (Buffered Lidocaine 1%) 16 ml 1X ONCE IJ Last administered on 11/02/16 10:30; Start 11/02/16 at 10:30; Stop 11/02/16 at 10:33; Status DC Midazolam HCl (Versed) 2 mg 1X ONCE IV Last administered on 11/02/16 10:59; Start 11/02/16 at 10:30; Stop 11/02/16 at 10:33; Status DC Fentanyl Citrate (Fentanyl 2ml Vial) 50 mcg 1X ONCE IV Last administered on 10:59; Start 11/02/16 at 10:30; Stop 11/02/16 at 10:33; Status DC Iohexol (Omnipaque 300 Mg/ml) 100 ml 1X ONCE IART Last administered on 10:58; Start 11/02/16 at 10:30; Stop 11/02/16 at 10:33; Status DC Bivalirudin (Angiomax) 250 mg STK-MED ONCE IV ; Start 11/02/16 at 10:32; Stop 11/02/16 at 10:33; Status DC Info (Do NOT chart on this entry -- for MONITORING) 1 each PRN DAILY PRN MC SEE COMMENTS; Start 11/02/16 at 10:45; Stop 11/04/16 at 10:44 Sodium Chloride 3 ml 3 ml QSHIFT PRN IV AFTER MEDS AND BLOOD DRAWS; Start at 11:30 Sodium Chloride (Iv Sodium Chloride 0.9% 1000ml Bag) 1,000 ml @ 60 mls/hr [id number] IV ; Start 11/02/16 at 11:22; Stop 11/02/16 at 21:21 Aspirin (Ecotrin) 81 mg [id number] PO ; Start 11/03/16 at 08:00 Nitroglycerin (Nitrostat) 0.4 mg PRN Q5MIN PRN SL CHEST PAIN; Start 11/02/16 at 11:30 Carvedilol (Coreg) 3.125 mg BIDWMEALS PO ; Start 11/02/16 at 17:00 Lisinopril (Prinivil) 2.5 mg DAILY PO ; Start 11/03/16 at 09:00 Pantoprazole Sodium (Protonix) 40 mg DAILYAC PO ; Start 11/02/16 at 13:00 Active Scripts Active Reported Lipitor (Atorvastatin Calcium) 40 Mg Tablet 40 Mg PO DAILY Coreg (Carvedilol) 12.5 Mg Tablet 1 Tab PO BID Lisinopril 5 Mg Tablet 5 Mg PO BID Effient (Prasugrel Hcl) 10 Mg Tablet 1 Tab PO DAILY Vitals/I & O Vital Sign - Last 24 Hours 11/01/16 11/01/16 11/01/16 11/01/16 18:11 18:30 19:00 19:30 Temp 97.6 97.6 Pulse 58 60 78 78 Resp 20 B/P 129/84 129/84 128/88 119/79 Pulse Ox 99 98 98 98 O2 Delivery Room Air Room Air Room Air 11/01/16 11/01/16 11/01/16 11/01/16 20:00 20:30 21:00 21:30 Pulse 78 78 84 84 B/P 117/80 129/82 121/78 118/83 Pulse Ox 99 98 97 99 O2 Delivery Room Air Room Air Room Air Room Air 11/01/16 11/01/16 11/01/16 11/02/16 22:00 22:36 22:36 02:52 Temp 97.9 97.9 97.9 97.9 97.9 97.9 Pulse 87 87 81 Resp 19 19 19 B/P 133/86 133/86 130/79 Pulse Ox 98 98 98 O2 Delivery Room Air Room Air Room Air Room Air 11/02/16 11/02/16 11/02/16 11/02/16 08:00 08:00 09:00 10:00 Temp 98.0 98.0 Pulse 76 76 80 Resp 12 18 10 B/P 111/78 97/68 113/69 Pulse Ox 98 99 98 O2 Delivery Room Air Room Air Room Air Room Air 11/02/16 11/02/16 11/02/16 11/02/16 10:52 10:59 11:15 11:30 Temp 97.8 97.8 Pulse 75 72 72 Resp 24 24 12 10 B/P 101/79 101/71 Pulse Ox 99 97 98 97 O2 Delivery Room Air Nasal Cannula Room Air Room Air O2 Flow Rate 2.0 11/02/16 11/02/16 11/02/16 11/02/16 11:45 12:00 12:00 12:30 Pulse 76 76 76 Resp 10 13 11 B/P 99/65 103/74 109/77 Pulse Ox 99 98 98 O2 Delivery Room Air Room Air Room Air Room Air 11/02/16 13:00 Pulse 74 Resp 10 B/P 107/72 Pulse Ox 98 O2 Delivery Room Air Intake and Output 11/01/16 11/01/16 11/02/16 15:00 23:00 07:00 Intake Total 0 ml Balance 0 ml ALLEN HERRMANN MD Nov 02, 2016 13:57
[2016-11-02] MEDS ORDERED: HEPARIN 25,000UTS/500ML PREMIX 500 ML IV PRN (15:00)
--- NOTE | 2016-11-02 15:17 | PDOC2 ---
CONSULT Date of Consult Date of Consult DATE: 11/02/16 TIME: 15:14 Reason for Consult Reason for Consult: Non-STEMI Ischemic artery myopathy Left mainstem coronary artery disease Referring Physician Referring Physician: Christophe Ruano Identification/Chief Complaint Chief Complaint Chest pain Source Source: Chart review, Patient History of Present Illness Reason for Visit: Mr Bingham is a 51-year-old male, with a history of ischemic heart disease status post PCI to the LAD and RCA, previous history of myocardial infarction, who presented to [facility] yesterday following an episode of severe chest pain. His last analogous episode was approximately 3 years ago. His troponin peaked at 2.5. With his CP he denies any diaphoresis, palpitations, SOA, nausea or vomiting. He went on to have a coronary angiogram today which demonstrated 60% left main disease, 70% in-stent LAD stenosis, and a patent stent in a nondominant RCA. His LV gram showed an ejection fraction of 35%. Transthoracic echo although show that his EF was 15-20% with the septum, apex and inferior wall all being akinetic. I was consulted to consider the patient for surgical revascularization. Past Medical History Cardiovascular: CAD, HTN, Hyperlipidemia Pulmonary: No pertinent hx CENTRAL NERVOUS SYSTEM: Other (No pertinent history) GI: No pertinent hx Heme/Onc: No pertinent hx Hepatobiliary: No pertinent hx Psych: No pertinent hx Musculoskeletal: Osteoarthritis Rheumatologic: No pertinent hx Infectious disease: No pertinent hx ENT: No pertinent hx Renal/: No pertinent hx Endocrine: No pertinent hx Dermatology: No pertinent hx Past Surgical History Past Surgical History: Arthroscopy (right knee) Family History Family History: Coronary Artery Disease (father and fatherside uncles), Heart Disease (mother with CHF) Social History No ALCOHOL: rare Drugs: None Lives: with Family Current Problem List Problem List Problems Medical Problems: (1) Abnormal EKG Status: Acute (2) Chest pain Status: Acute (3) History of myocardial infarction Status: Acute Current Medications Current Medications Current Medications Aspirin 324 mg 324 mg 1X ONCE PO ; Start 11/01/16 at 19:00; Stop 11/01/16 at 19: 00; Status DC Sodium Chloride (Iv Sodium Chloride 0.9% 1000ml Bag) 1,000 ml @ 100 mls/hr Q10H IV Last administered on 11/01/16t 19:22; Start 11/01/16 at 18:47; Stop at 04:46; Status DC Fentanyl Citrate (Fentanyl 2ml Vial) 50 mcg PRN Q15MIN PRN IV PAIN GREATER THAN 3/10; Start 11/01/16 at 19:00; Stop 11/02/16 at 18:59 Ondansetron HCl (Zofran) 4 mg 1X ONCE IV Last administered on 11/01/16 19:21; Start 11/01/16 at 19:00; Stop 11/01/16 at 19:12; Status DC Nitroglycerin (Nitrostat) 0.4 mg PRN Q5MIN PRN SL CP RATING > 1/10; Start at 19:00; Stop 11/02/16 at 18:59 Ondansetron HCl (Zofran) 4 mg PRN Q8HRS PRN IV NAUSEA/VOMITING; Start 11/01/16 at 22:15; Stop 11/02/16 at 22:14 Fentanyl Citrate 50 mcg 50 mcg PRN Q2HR PRN IV PAIN; Start 11/01/16 at 22:15; Stop 11/02/16 at 22:14 Sodium Chloride (Iv Sodium Chloride 0.9% 1000ml Bag) 1,000 ml @ 75 mls/hr [id number] IV Last administered on 11/02/16 06:45; Start 11/01/16 at 22:00; Stop at 12:27; Status DC Acetaminophen (Tylenol) 650 mg PRN Q4HRS PRN PO FEVER; Start 11/01/16 at 22:15; Stop 11/02/16 at 22:14 Atorvastatin Calcium (Lipitor) 40 mg HS PO ; Start 11/02/16 at 21:00 Carvedilol (Coreg) 12.5 mg BIDWMEALS PO ; Start 11/02/16 at 08:00; Stop 11/02/16 at 12:27; Status DC Lisinopril (Prinivil) 5 mg BID PO ; Start 11/02/16 at 09:00; Stop 11/02/16 at 12: 11; Status DC Prasugrel 10 mg 10 mg DAILY PO ; Start 11/02/16 at 09:00; Stop 11/02/16 at 11:23; Status DC Heparin Sodium/ Dextrose 500 ml @ 0 mls/hr 1X ONCE IV Last administered on 11/02 06:42; Start 11/02/16 at 06:00; Stop 11/02/16 at 06:01; Status DC Heparin Sodium (Porcine) 5,000 unit 1X ONCE IV Last administered on 11/02/16 06:37; Start 11/02/16 at 06:00; Stop 11/02/16 at 06:01; Status DC Iohexol 100 ml 100 ml STK-MED ONCE .ROUTE ; Start 11/02/16 at 09:42; Stop at 09:43; Status DC Heparin Sodium/ Sodium Chloride 1,500 ml @ As Directed STK-MED ONCE .ROUTE ; Start 11/02/16 at 09:42; Stop 11/02/16 at 09:43; Status DC Lidocaine HCl 20 ml STK-MED ONCE .ROUTE ; Start 11/02/16 at 09:42; Stop 11/02/16 at 09:43; Status DC Fentanyl Citrate (Fentanyl 2ml Vial) 100 mcg STK-MED ONCE .ROUTE ; Start at 10:19; Stop 11/02/16 at 10:20; Status DC Midazolam HCl (Versed) 2 mg STK-MED ONCE .ROUTE ; Start 11/02/16 at 10:20; Stop 11/02/16 at 10:21; Status DC Heparin Sodium/ Sodium Chloride 1,000 unit 1X ONCE IART Last administered on 10:58; Start 11/02/16 at 10:30; Stop 11/02/16 at 10:33; Status DC Lidocaine/Sodium Bicarbonate (Buffered Lidocaine 1%) 16 ml 1X ONCE IJ Last administered on 11/02/16 10:30; Start 11/02/16 at 10:30; Stop 11/02/16 at 10:33; Status DC Midazolam HCl (Versed) 2 mg 1X ONCE IV Last administered on 11/02/16 10:59; Start 11/02/16 at 10:30; Stop 11/02/16 at 10:33; Status DC Fentanyl Citrate (Fentanyl 2ml Vial) 50 mcg 1X ONCE IV Last administered on 10:59; Start 11/02/16 at 10:30; Stop 11/02/16 at 10:33; Status DC Iohexol (Omnipaque 300 Mg/ml) 100 ml 1X ONCE IART Last administered on 10:58; Start 11/02/16 at 10:30; Stop 11/02/16 at 10:33; Status DC Bivalirudin (Angiomax) 250 mg STK-MED ONCE IV ; Start 11/02/16 at 10:32; Stop 11/02/16 at 10:33; Status DC Info (Do NOT chart on this entry -- for MONITORING) 1 each PRN DAILY PRN MC SEE COMMENTS; Start 11/02/16 at 10:45; Stop 11/04/16 at 10:44 Sodium Chloride 3 ml 3 ml QSHIFT PRN IV AFTER MEDS AND BLOOD DRAWS; Start at 11:30 Sodium Chloride (Iv Sodium Chloride 0.9% 1000ml Bag) 1,000 ml @ 60 mls/hr [id number] IV Last administered on 11/02/16 11:22; Start 11/02/16 at 11:22; Stop at 21:21 Aspirin (Ecotrin) 81 mg DAILYWBKFT PO ; Start 11/03/16 at 08:00 Nitroglycerin (Nitrostat) 0.4 mg PRN Q5MIN PRN SL CHEST PAIN; Start 11/02/16 at 11:30 Carvedilol (Coreg) 3.125 mg BIDWMEALS PO ; Start 11/02/16 at 17:00 Lisinopril (Prinivil) 2.5 mg DAILY PO ; Start 11/03/16 at 09:00 Pantoprazole Sodium (Protonix) 40 mg DAILYAC PO Last administered on 11/02/16 13:52; Start 11/02/16 at 13:00 Active Scripts Active Reported Lipitor (Atorvastatin Calcium) 40 Mg Tablet 40 Mg PO DAILY Coreg (Carvedilol) 12.5 Mg Tablet 1 Tab PO BID Lisinopril 5 Mg Tablet 5 Mg PO BID Effient (Prasugrel Hcl) 10 Mg Tablet 1 Tab PO DAILY Allergies Allergies: Coded Allergies: No Known Drug Allergies (Unverified , 11/01/16) ROS General: No: Appetite, Chills, Fatigue, Malaise, Night Sweats PSYCHOLOGICAL ROS: No: Anxiety, Behavioral Disorder, Concentration difficultie , Decreased libido, Depression, Disorientation, Hallucinations, Hostility, Irritablity, Memory difficulties, Mood Swings, Obsessive thoughts, Physical abuse, Sexual abuse, Sleep disturbances, Suicidal ideation Eyes: No Blurry vision, No Decreased vision, No Double vision, No Dry eyes, No Excessive tearing, No Eye Pain, No Itchy Eyes, No Loss of vision, No Photophobia , No Scotomata, No Uses contacts, No Uses glasses HEENT: No: Epistaxis, Heacaches, Hearing change, Nasal congestion, Nasal discharge, Oral lesions, Sinus pain, Sneezing, Snoring, Sore Throat, Tinnitus, Vertigo, Visual Changes, Vocal changes ALLERGY AND IMMUNOLOGY: No: Hives, Insect Bite Sensitivity, Itchy/Watery Eyes, Nasal Congestion, Post Nasal Drip, Seasonal Allergies Hematological and Lymphatic: No: Bleeding Problems, Blood Clots, Blood Transfusions, Brusing, Night Sweats, Pallor, Swollen Lymph Nodes ENDOCRINE: No: Breast Changes, Galactorrhea, Hair Pattern Changes, Hot Flashes , Malaise/lethargy, Mood Swings, Palpitations, Polydipsia/polyuria, Skin Changes , Temperature Intolerance, Unexpected Weight Changes Respiratory: No: Cough, Hemoptysis, Orthopnea, Pleuritic Pain, SOB with excertion, Shortness of breath, Sputum Changes, Stridor, Tachypnea, Wheezing Cardiovascular: yes Chest Pain, No Edema, No Lt Headedness, No Orthopnea, No Palpitations, No Paroxysmal Noc. Dyspnea Gastrointestinal: No Abdominal Pain, No Constipation, No Diarrhea, No Hematochezia, No Melena, No Nausea, No Vomiting Genitourinary: No Discharge, No Dysuria, No Flank Pain, No Frequency, No Hematuria, No Incontinence, No Pain, No Retention, No Urgency Musculoskeletal: No Gait Disturbance, No Joint Pain, No Joint Stiffness, No Joint Swelling, No Muscle Pain, No Muscular Weakness, No Pain In:, No Swelling In: Neurological: No Behavorial Changes, No Bowel/Bladder ControlChng, No Confusion , No Dizziness, No Gait Disturbance, No Headaches, No Impaired Coord/balance, No Memory Loss, No Numbness/Tingling, No Seizures, No Speech Problems, No Tremors, No Visual Changes, No Weakness Skin: No Acne, No Dry Skin, No Eczema, No Hair Changes, No Lumps, No Mole Changes, No Mottling, No Nail Changes, No Pruritus, No Rash, No Skin Lesion Changes Physical Exam General: Alert, Oriented X3, No acute distress HEENT: Atraumatic, PERRLA Lungs: Clear to auscultation, Normal air movement Heart: Regular rate, Normal S1, Normal S2 Abdomen: Soft, No tenderness Extremities: No edema Skin: No significant lesion Neuro: Normal gait, Normal speech, Strength at 5/5 X4 ext, Normal tone, Sensation intact, Cranial nerves 3-12 NL Psych/Mental Status: Mental status NL MUSCULOSKELETAL: No deformity Vitals VITALS Vital Signs Date Time Temp Pulse Resp B/P Pulse Ox O2 Delivery O2 Flow Rate FiO2 11/02/16 13:00 74 10 107/72 98 Room Air 11/02/16 11:15 97.8 97.8 11/02/16 10:59 2.0 Labs Labs Laboratory Tests Test 11/01/16 19:17 11/02/16 03:50 11/02/16 05:30 White Blood Count 10.6x10^3/uL (4.0-11.0) 11.3x10^3/uL (4.0-11.0) Red Blood Count 4.75x10^6/uL (4.30-5.70) 4.85x10^6/uL (4.30-5.70) Hemoglobin 14.6g/dL (13.0-17.5) 14.6g/dL (13.0-17.5) Hematocrit 43.1% (39.0-53.0) 43.5% (39.0-53.0) Mean Corpuscular Volume 91fL (79-100) 90fL (79-100) Mean Corpuscular Hemoglobin 31pg (25-35) 30pg (25-35) Mean Corpuscular Hemoglobin Concent 34g/dL (31-37) 34g/dL (31-37) Red Cell Distribution Width 12.8% (11.5-14.5) 12.9% (11.5-14.5) Platelet Count 375x10^3/uL (140-400) 338x10^3/uL (140-400) Neutrophils (%) (Auto) 58% (31-73) 55% (31-73) Lymphocytes (%) (Auto) 31% (24-48) 33% (24-48) Monocytes (%) (Auto) 9% (0-9) 8% (0-9) Eosinophils (%) (Auto) 3% (0-3) 4% (0-3) Basophils (%) (Auto) 0% (0-3) 1% (0-3) Neutrophils # (Auto) 6.1x10^3uL (1.8-7.7) 6.2x10^3uL (1.8-7.7) Lymphocytes # (Auto) 3.2x10^3/uL (1.0-4.8) 3.7x10^3/uL (1.0-4.8) Monocytes # (Auto) 0.9x10^3/uL (0.0-1.1) 0.9x10^3/uL (0.0-1.1) Eosinophils # (Auto) 0.3x10^3/uL (0.0-0.7) 0.4x10^3/uL (0.0-0.7) Basophils # (Auto) 0.0x10^3/uL (0.0-0.2) 0.1x10^3/uL (0.0-0.2) Sodium Level 142mmol/L (136-145) 144mmol/L (136-145) Potassium Level 5.5mmol/L (3.5-5.1) 4.2mmol/L (3.5-5.1) Chloride Level 105mmol/L (98-107) 106mmol/L (98-107) Carbon Dioxide Level 31mmol/L (21-32) 28mmol/L (21-32) Anion Gap 6 (6-14) 10 (6-14) Blood Urea Nitrogen 12mg/dL (8-26) 10mg/dL (8-26) Creatinine 0.9mg/dL (0.7-1.3) 0.8mg/dL (0.7-1.3) Estimated GFR (Cockcroft-Gault) 88.3 101.1 Glucose Level 98mg/dL (70-99) 97mg/dL (70-99) Calcium Level 9.2mg/dL (8.5-10.1) 8.7mg/dL (8.5-10.1) Magnesium Level 2.2mg/dL (1.8-2.4) Total Bilirubin 0.3mg/dL (0.2-1.0) Direct Bilirubin 0.1mg/dL (0.0-0.2) Aspartate Amino Transf (AST/SGOT) 20U/L (15-37) Alanine Aminotransferase (ALT/SGPT) 31U/L (16-63) Alkaline Phosphatase 89U/L (46-116) Creatine Kinase 107U/L (39-308) Creatine Kinase MB (Mass) 1.2ng/mL (0.0-3.6) Creatine Kinase MB Relative Index 1.1% (0-4) Troponin I Quantitative < 0.017ng/mL (0.000-0.055) 2.705ng/mL (0.000-0.055) VU-Lrk-X-Type Natriuretic Peptide 155pg/mL (0-124) Total Protein 7.4g/dL (6.4-8.2) Albumin 3.7g/dL (3.4-5.0) Lipase 256U/L (73-393) Triglycerides Level 84mg/dL (0-150) Cholesterol Level 112mg/dL (0-200) LDL Cholesterol, Calculated 60mg/dL (0-100) VLDL Cholesterol, Calculated 17mg/dL (0-40) HDL Cholesterol 35mg/dL (40-60) Cholesterol/HDL Ratio 3.2 Thyroid Stimulating Hormone (TSH) 1.785uIU/mL (0.358-3.74) Prothrombin Time 13.6SEC (11.7-14.0) Prothromb Time International Ratio 1.1 (0.8-1.1) Activated Partial Thromboplast Time 32SEC (24-38) Laboratory Tests Test 11/01/16 19:17 11/02/16 03:50 11/02/16 05:30 White Blood Count 10.6x10^3/uL (4.0-11.0) 11.3x10^3/uL (4.0-11.0) Red Blood Count 4.75x10^6/uL (4.30-5.70) 4.85x10^6/uL (4.30-5.70) Hemoglobin 14.6g/dL (13.0-17.5) 14.6g/dL (13.0-17.5) Hematocrit 43.1% (39.0-53.0) 43.5% (39.0-53.0) Mean Corpuscular Volume 91fL (79-100) 90fL (79-100) Mean Corpuscular Hemoglobin 31pg (25-35) 30pg (25-35) Mean Corpuscular Hemoglobin Concent 34g/dL (31-37) 34g/dL (31-37) Red Cell Distribution Width 12.8% (11.5-14.5) 12.9% (11.5-14.5) Platelet Count 375x10^3/uL (140-400) 338x10^3/uL (140-400) Neutrophils (%) (Auto) 58% (31-73) 55% (31-73) Lymphocytes (%) (Auto) 31% (24-48) 33% (24-48) Monocytes (%) (Auto) 9% (0-9) 8% (0-9) Eosinophils (%) (Auto) 3% (0-3) 4% (0-3) Basophils (%) (Auto) 0% (0-3) 1% (0-3) Neutrophils # (Auto) 6.1x10^3uL (1.8-7.7) 6.2x10^3uL (1.8-7.7) Lymphocytes # (Auto) 3.2x10^3/uL (1.0-4.8) 3.7x10^3/uL (1.0-4.8) Monocytes # (Auto) 0.9x10^3/uL (0.0-1.1) 0.9x10^3/uL (0.0-1.1) Eosinophils # (Auto) 0.3x10^3/uL (0.0-0.7) 0.4x10^3/uL (0.0-0.7) Basophils # (Auto) 0.0x10^3/uL (0.0-0.2) 0.1x10^3/uL (0.0-0.2) Sodium Level 142mmol/L (136-145) 144mmol/L (136-145) Potassium Level 5.5mmol/L (3.5-5.1) 4.2mmol/L (3.5-5.1) Chloride Level 105mmol/L (98-107) 106mmol/L (98-107) Carbon Dioxide Level 31mmol/L (21-32) 28mmol/L (21-32) Anion Gap 6 (6-14) 10 (6-14) Blood Urea Nitrogen 12mg/dL (8-26) 10mg/dL (8-26) Creatinine 0.9mg/dL (0.7-1.3) 0.8mg/dL (0.7-1.3) Estimated GFR (Cockcroft-Gault) 88.3 101.1 Glucose Level 98mg/dL (70-99) 97mg/dL (70-99) Calcium Level 9.2mg/dL (8.5-10.1) 8.7mg/dL (8.5-10.1) Magnesium Level 2.2mg/dL (1.8-2.4) Total Bilirubin 0.3mg/dL (0.2-1.0) Direct Bilirubin 0.1mg/dL (0.0-0.2) Aspartate Amino Transf (AST/SGOT) 20U/L (15-37) Alanine Aminotransferase (ALT/SGPT) 31U/L (16-63) Alkaline Phosphatase 89U/L (46-116) Creatine Kinase 107U/L (39-308) Creatine Kinase MB (Mass) 1.2ng/mL (0.0-3.6) Creatine Kinase MB Relative Index 1.1% (0-4) Troponin I Quantitative < 0.017ng/mL (0.000-0.055) 2.705ng/mL (0.000-0.055) ZF-Qta-G-Type Natriuretic Peptide 155pg/mL (0-124) Total Protein 7.4g/dL (6.4-8.2) Albumin 3.7g/dL (3.4-5.0) Lipase 256U/L (73-393) Triglycerides Level 84mg/dL (0-150) Cholesterol Level 112mg/dL (0-200) LDL Cholesterol, Calculated 60mg/dL (0-100) VLDL Cholesterol, Calculated 17mg/dL (0-40) HDL Cholesterol 35mg/dL (40-60) Cholesterol/HDL Ratio 3.2 Thyroid Stimulating Hormone (TSH) 1.785uIU/mL (0.358-3.74) Prothrombin Time 13.6SEC (11.7-14.0) Prothromb Time International Ratio 1.1 (0.8-1.1) Activated Partial Thromboplast Time 32SEC (24-38) Images Images Coronary angiogram Left main. 60% proximal lesion. LAD. 60% restenosis in mid stent. LAD wraps around the apex. LCX. 20% mid lesion, 75% proximal RI branch lesion. RCA. Non dominant. Patent stent. LV. EF estimated at 35%. Distal inferior and apical hypokinesis. Assessment/Plan Assessment/Plan 51-year-old male with a known history of ischemic heart disease status post myocardial infarction, PCI to the proximal mid LAD, PCI to the proximal mid RCA , who presents with a non-STEMI. Coronary angiogram shows a 60% left main disease, with 70% in-stent LAD stenosis, and a patent stent in a small nondominant RCA. The LV gram showed an ejection fraction of 30-35%, although the transthoracic echo estimated the EF at 15%. The septum, apex and inferior wall are akinetic. The patient has good LAD and obtuse marginal targets for CABG. The only question is if the anterior wall, apex and the inferior wall are viable. If not , I do not think there is benefit from proceeding with CABG. In this instance, I would recommend PCI to the left main followed by heart failure management. If the myocardium is viable then there is certainly benefits with surgical coronary revascularization. Will proceed with MPI, to assess reversibility of ischemic cardiomyopathy. We will decide on surgery after myocardial viability study. Hold Effient. Last dose was yesterday, would wait at least a week before proceeding with CABG. TERESA LEONG MD Nov 02, 2016 15:17
--- NOTE | 2016-11-02 16:26 | CARD ---
APPROVED REPORT EXAM: Two-dimensional and M-mode echocardiogram with Doppler and color Doppler. Other Information Quality : Average Rhythm : NSR INDICATION Non STEMI 2D DIMENSIONS RVDd1.8 (2.9-3.5cm)Left Atrium(2D)2.1 (1.6-4.0cm) IVSd0.8 (0.7-1.1cm)Aortic Root(2D)2.7 (2.0-3.7cm) LVDd4.5 (3.9-5.9cm)LVOT Diameter1.9 (1.8-2.4cm) PWd0.8 (0.7-1.1cm)LVDs4.1 (2.5-4.0cm) FS (%) 8.0 %SV16.6 ml Aortic Valve AoV Peak Hill.87.0cm/sAoV VTI14.8cm AO Peak GR.3.0mmHgLVOT VTI 13.57cm AO Mean GR.2mmHgAVA (VTI)2.73cm2 Mitral Valve MV E Eolerqpz76.3cm/sMV E Peak Gr.1mmHg MV DECEL [id number] A Jqpmgarb00.7cm/s MV E Mean Gr.1mmHgMV [id number] E/A Ratio1.1MV A [id number] MVA (PHT)3.93cm2 TDI Lateral E' P. V8.29cm/sMedial E' P. V6.91cm/s E/Lateral E'7.5E/Medial E'9.0 Tricuspid Valve TR P. [id number]/sRAP [id number] TR Peak Gr.[id number] LEFT VENTRICLE Technically difficult study. The Left Ventricle is borderline dilated. There is normal left ventricul ar wall thickness. Left ventricle systolic function is moderately severely decreased. The Ejection Fr action is estimated at 30%. Hypokinesis of the distal inferior, apical and distal anterior pickens. The left ventricular diastolic function and filling is normal for age. RIGHT VENTRICLE The right ventricle is normal size. The right ventricular systolic function is normal. ATRIA The left atrium size is normal. The right atrium size is normal. The interatrial septum is intact wit h no evidence for an atrial septal defect or patent foramen ovale as noted on 2-D or Doppler imaging. AORTIC VALVE The aortic valve is not well visualized. Can not rule out bicuspid valve. Doppler and Color Flow reve aled no significant aortic regurgitation. There is no significant aortic valvular stenosis. MITRAL VALVE The mitral valve is normal in structure and function. There is no mitral valve stenosis. Doppler and Color-flow revealed mild mitral regurgitation. TRICUSPID VALVE The tricuspid valve is not well visualized. Doppler and Color Flow revealed trace tricuspid regurgita tion. The PA pressure was estimated at 17 mmHg. There is no tricuspid valve stenosis. PULMONIC VALVE The pulmonic valve is not well visualized. Doppler and Color Flow revealed no pulmonic valvular regur gitation. There is no pulmonic valvular stenosis. GREAT VESSELS The aortic root is normal in size. The IVC is normal in size and collapses >50% with inspiration. PERICARDIAL EFFUSION There is no evidence of significant pericardial effusion. Critical Notification Critical Value: No <Conclusion> Technically difficult study. The Left Ventricle is borderline dilated. Left ventricle systolic function is moderately severely decreased. The Ejection Fraction is estimated at 30%. Hypokinesis of the distal inferior, apical and distal anterior pickens. There is no significant aortic valvular stenosis. Doppler and Color Flow revealed no significant aortic regurgitation. Doppler and Color-flow revealed mild mitral regurgitation. Doppler and Color Flow revealed trace tricuspid regurgitation. The PA pressure was estimated at 17 mmHg.
[2016-11-02] MEDS: CARVEDILOL 3.125 MG TABLET PO SCH (17:00)
[2016-11-02] MEDS: ATORVASTATIN CALCIUM 40 MG TABLET. PO SCH (21:02)
[2016-11-03 03:40] VITALS: BP 106/74
[2016-11-03 06:11] LABS: HEMATOCRIT 44.2 % (39.0-53.0); HEMOGLOBIN 14.6 g/dL (13.0-17.5); RED BLOOD COUNT 4.88 x10^6/uL (4.30-5.70); RED CELL DISTRIBUTION WIDTH 12.9 % (11.5-14.5); WHITE BLOOD COUNT 13.5 x10^3/uL (4.0-11.0)
[2016-11-03 07:30] VITALS: BP 114/65
[2016-11-03] MEDS ORDERED: ANTI-COAG MONITOR BY PHARMACY. MC PRN (08:15)
[2016-11-03] MEDS ORDERED: LISINOPRIL 2.5 MG TABLET PO SCH (09:00)
[2016-11-03] MEDS: ASPIRIN ENTERIC COATED 81 MG TABLET.DR. PO SCH (09:26)
[2016-11-03] MEDS: CARVEDILOL 3.125 MG TABLET PO SCH ×2 (09:27→18:20)
[2016-11-03] MEDS: PANTOPRAZOLE 40 MG TABLET. PO SCH (09:27)
[2016-11-03 10:31] VITALS: BP 123/74
--- NOTE | 2016-11-03 12:01 | PDOC ---
PROGRESS NOTES Chief Complaint Chief Complaint ACS ASSESSMENT AND PLAN: 1. AMI: tentative plans for CABG by Dr Esrtada; awaiting viability study. remains on IV heparin 2. CHF: current echo with EF 30% 3. Anticoag: restart heparin post CABG. hold oral anti-plt agents (in anticipation of surgery) 4. HTN: cont home meds 5. HLD: not on statin. lipid profile good 6. Prophylaxis: PPI, (heparin) 7. Dispo: poss D/C home over weekend if cleared by Cards, CV surg Vitals Vitals Vital Signs Date Time Temp Pulse Resp B/P Pulse Ox O2 Delivery O2 Flow Rate FiO2 11/03/16 10:31 98.2 83 18 123/74 96 Room Air 98.2 11/02/16 16:05 2.0 Physical Exam General: Alert, Oriented X3, No acute distress Heart: Regular rate, Normal S1, Normal S2 Lungs: Clear Abdomen: Soft, No tenderness Extremities: No edema Skin: No significant lesion Labs LABS Laboratory Tests Test 11/02/16 20:47 11/03/16 05:30 Heparin Anti-Xa Act, Unfractionated 0.12IU/mL (0.30-0.70) 0.14IU/mL (0.30-0.70) White Blood Count 13.5x10^3/uL (4.0-11.0) Red Blood Count 4.88x10^6/uL (4.30-5.70) Hemoglobin 14.6g/dL (13.0-17.5) Hematocrit 44.2% (39.0-53.0) Mean Corpuscular Volume 91fL (79-100) Mean Corpuscular Hemoglobin 30pg (25-35) Mean Corpuscular Hemoglobin Concent 33g/dL (31-37) Red Cell Distribution Width 12.9% (11.5-14.5) Platelet Count 358x10^3/uL (140-400) Review of Systems Review of Systems no CP since ER. no other sx. bored Comment Review of Relevant I have reviewed the following items kojo (where applicable) has been applied. Labs Laboratory Tests Test 11/01/16 19:17 11/02/16 03:50 11/02/16 05:30 11/02/16 20:47 White Blood Count 10.6x10^3/uL (4.0-11.0) 11.3x10^3/uL (4.0-11.0) Red Blood Count 4.75x10^6/uL (4.30-5.70) 4.85x10^6/uL (4.30-5.70) Hemoglobin 14.6g/dL (13.0-17.5) 14.6g/dL (13.0-17.5) Hematocrit 43.1% (39.0-53.0) 43.5% (39.0-53.0) Mean Corpuscular Volume 91fL (79-100) 90fL (79-100) Mean Corpuscular Hemoglobin 31pg (25-35) 30pg (25-35) Mean Corpuscular Hemoglobin Concent 34g/dL (31-37) 34g/dL (31-37) Red Cell Distribution Width 12.8% (11.5-14.5) 12.9% (11.5-14.5) Platelet Count 375x10^3/uL (140-400) 338x10^3/uL (140-400) Neutrophils (%) (Auto) 58% (31-73) 55% (31-73) Lymphocytes (%) (Auto) 31% (24-48) 33% (24-48) Monocytes (%) (Auto) 9% (0-9) 8% (0-9) Eosinophils (%) (Auto) 3% (0-3) 4% (0-3) Basophils (%) (Auto) 0% (0-3) 1% (0-3) Neutrophils # (Auto) 6.1x10^3uL (1.8-7.7) 6.2x10^3uL (1.8-7.7) Lymphocytes # (Auto) 3.2x10^3/uL (1.0-4.8) 3.7x10^3/uL (1.0-4.8) Monocytes # (Auto) 0.9x10^3/uL (0.0-1.1) 0.9x10^3/uL (0.0-1.1) Eosinophils # (Auto) 0.3x10^3/uL (0.0-0.7) 0.4x10^3/uL (0.0-0.7) Basophils # (Auto) 0.0x10^3/uL (0.0-0.2) 0.1x10^3/uL (0.0-0.2) Sodium Level 142mmol/L (136-145) 144mmol/L (136-145) Potassium Level 5.5mmol/L (3.5-5.1) 4.2mmol/L (3.5-5.1) Chloride Level 105mmol/L (98-107) 106mmol/L (98-107) Carbon Dioxide Level 31mmol/L (21-32) 28mmol/L (21-32) Anion Gap 6 (6-14) 10 (6-14) Blood Urea Nitrogen 12mg/dL (8-26) 10mg/dL (8-26) Creatinine 0.9mg/dL (0.7-1.3) 0.8mg/dL (0.7-1.3) Estimated GFR (Cockcroft-Gault) 88.3 101.1 Glucose Level 98mg/dL (70-99) 97mg/dL (70-99) Calcium Level 9.2mg/dL (8.5-10.1) 8.7mg/dL (8.5-10.1) Magnesium Level 2.2mg/dL (1.8-2.4) Total Bilirubin 0.3mg/dL (0.2-1.0) Direct Bilirubin 0.1mg/dL (0.0-0.2) Aspartate Amino Transf (AST/SGOT) 20U/L (15-37) Alanine Aminotransferase (ALT/SGPT) 31U/L (16-63) Alkaline Phosphatase 89U/L (46-116) Creatine Kinase 107U/L (39-308) Creatine Kinase MB (Mass) 1.2ng/mL (0.0-3.6) Creatine Kinase MB Relative Index 1.1% (0-4) Troponin I Quantitative < 0.017ng/mL (0.000-0.055) 2.705ng/mL (0.000-0.055) MU-Byz-C-Type Natriuretic Peptide 155pg/mL (0-124) Total Protein 7.4g/dL (6.4-8.2) Albumin 3.7g/dL (3.4-5.0) Lipase 256U/L (73-393) Triglycerides Level 84mg/dL (0-150) Cholesterol Level 112mg/dL (0-200) LDL Cholesterol, Calculated 60mg/dL (0-100) VLDL Cholesterol, Calculated 17mg/dL (0-40) HDL Cholesterol 35mg/dL (40-60) Cholesterol/HDL Ratio 3.2 Thyroid Stimulating Hormone (TSH) 1.785uIU/mL (0.358-3.74) Prothrombin Time 13.6SEC (11.7-14.0) Prothromb Time International Ratio 1.1 (0.8-1.1) Activated Partial Thromboplast Time 32SEC (24-38) Heparin Anti-Xa Act, Unfractionated 0.12IU/mL (0.30-0.70) Test 11/03/16 05:30 White Blood Count 13.5x10^3/uL (4.0-11.0) Red Blood Count 4.88x10^6/uL (4.30-5.70) Hemoglobin 14.6g/dL (13.0-17.5) Hematocrit 44.2% (39.0-53.0) Mean Corpuscular Volume 91fL (79-100) Mean Corpuscular Hemoglobin 30pg (25-35) Mean Corpuscular Hemoglobin Concent 33g/dL (31-37) Red Cell Distribution Width 12.9% (11.5-14.5) Platelet Count 358x10^3/uL (140-400) Heparin Anti-Xa Act, Unfractionated 0.14IU/mL (0.30-0.70) Laboratory Tests Test 11/02/16 20:47 11/03/16 05:30 Heparin Anti-Xa Act, Unfractionated 0.12IU/mL (0.30-0.70) 0.14IU/mL (0.30-0.70) White Blood Count 13.5x10^3/uL (4.0-11.0) Red Blood Count 4.88x10^6/uL (4.30-5.70) Hemoglobin 14.6g/dL (13.0-17.5) Hematocrit 44.2% (39.0-53.0) Mean Corpuscular Volume 91fL (79-100) Mean Corpuscular Hemoglobin 30pg (25-35) Mean Corpuscular Hemoglobin Concent 33g/dL (31-37) Red Cell Distribution Width 12.9% (11.5-14.5) Platelet Count 358x10^3/uL (140-400) Medications Current Medications Aspirin 324 mg 324 mg 1X ONCE PO ; Start 11/01/16 at 19:00; Stop 11/01/16 at 19: 00; Status DC Sodium Chloride (Iv Sodium Chloride 0.9% 1000ml Bag) 1,000 ml @ 100 mls/hr Q10H IV Last administered on 11/01/16 19:22; Start 11/01/16 at 18:47; Stop at 04:46; Status DC Fentanyl Citrate (Fentanyl 2ml Vial) 50 mcg PRN Q15MIN PRN IV PAIN GREATER THAN 3/10; Start 11/01/16 at 19:00; Stop 11/02/16 at 18:59; Status DC Ondansetron HCl (Zofran) 4 mg 1X ONCE IV Last administered on 11/01/16 19:21; Start 11/01/16 at 19:00; Stop 11/01/16 at 19:12; Status DC Nitroglycerin (Nitrostat) 0.4 mg PRN Q5MIN PRN SL CP RATING > 1/10; Start at 19:00; Stop 11/02/16 at 18:59; Status DC Ondansetron HCl (Zofran) 4 mg PRN Q8HRS PRN IV NAUSEA/VOMITING; Start 11/01/16 at 22:15; Stop 11/02/16 at 22:14; Status DC Fentanyl Citrate 50 mcg 50 mcg PRN Q2HR PRN IV PAIN; Start 11/01/16 at 22:15; Stop 11/02/16 at 22:14; Status DC Sodium Chloride (Iv Sodium Chloride 0.9% 1000ml Bag) 1,000 ml @ 75 mls/hr [id number] IV Last administered on 11/02/16 06:45; Start 11/01/16 at 22:00; Stop at 12:27; Status DC Acetaminophen (Tylenol) 650 mg PRN Q4HRS PRN PO FEVER; Start 11/01/16 at 22:15; Stop 11/02/16 at 22:14; Status DC Atorvastatin Calcium (Lipitor) 40 mg HS PO Last administered on 11/02/16 21:02 ; Start 11/02/16 at 21:00 Carvedilol (Coreg) 12.5 mg BIDWMEALS PO ; Start 11/02/16 at 08:00; Stop 11/02/16 at 12:27; Status DC Lisinopril (Prinivil) 5 mg BID PO Last administered on 11/02/16 09:00; Start at 09:00; Stop 11/02/16 at 12:11; Status DC Prasugrel 10 mg 10 mg DAILY PO Last administered on 11/02/16 09:00; Start at 09:00; Stop 11/02/16 at 11:23; Status DC Heparin Sodium/ Dextrose 500 ml @ 0 mls/hr 1X ONCE IV Last administered on 11/02 06:42; Start 11/02/16 at 06:00; Stop 11/02/16 at 06:01; Status DC Heparin Sodium (Porcine) 5,000 unit 1X ONCE IV Last administered on 11/02/16 06:37; Start 11/02/16 at 06:00; Stop 11/02/16 at 06:01; Status DC Iohexol 100 ml 100 ml STK-MED ONCE .ROUTE ; Start 11/02/16 at 09:42; Stop at 09:43; Status DC Heparin Sodium/ Sodium Chloride 1,500 ml @ As Directed STK-MED ONCE .ROUTE ; Start 11/02/16 at 09:42; Stop 11/02/16 at 09:43; Status DC Lidocaine HCl 20 ml STK-MED ONCE .ROUTE ; Start 11/02/16 at 09:42; Stop 11/02/16 at 09:43; Status DC Fentanyl Citrate (Fentanyl 2ml Vial) 100 mcg STK-MED ONCE .ROUTE ; Start at 10:19; Stop 11/02/16 at 10:20; Status DC Midazolam HCl (Versed) 2 mg STK-MED ONCE .ROUTE ; Start 11/02/16 at 10:20; Stop 11/02/16 at 10:21; Status DC Heparin Sodium/ Sodium Chloride 1,000 unit 1X ONCE IART Last administered on 10:58; Start 11/02/16 at 10:30; Stop 11/02/16 at 10:33; Status DC Lidocaine/Sodium Bicarbonate (Buffered Lidocaine 1%) 16 ml 1X ONCE IJ Last administered on 11/02/16 10:30; Start 11/02/16 at 10:30; Stop 11/02/16 at 10:33; Status DC Midazolam HCl (Versed) 2 mg 1X ONCE IV Last administered on 11/02/16 10:59; Start 11/02/16 at 10:30; Stop 11/02/16 at 10:33; Status DC Fentanyl Citrate (Fentanyl 2ml Vial) 50 mcg 1X ONCE IV Last administered on 10:59; Start 11/02/16 at 10:30; Stop 11/02/16 at 10:33; Status DC Iohexol (Omnipaque 300 Mg/ml) 100 ml 1X ONCE IART Last administered on 10:58; Start 11/02/16 at 10:30; Stop 11/02/16 at 10:33; Status DC Bivalirudin (Angiomax) 250 mg STK-MED ONCE IV ; Start 11/02/16 at 10:32; Stop 11/02/16 at 10:33; Status DC Info (Do NOT chart on this entry -- for MONITORING) 1 each PRN DAILY PRN MC SEE COMMENTS; Start 11/02/16 at 10:45; Stop 11/04/16 at 10:44 Sodium Chloride 3 ml 3 ml QSHIFT PRN IV AFTER MEDS AND BLOOD DRAWS; Start at 11:30 Sodium Chloride (Iv Sodium Chloride 0.9% 1000ml Bag) 1,000 ml @ 60 mls/hr [id number] IV Last administered on 11/02/16 11:22; Start 11/02/16 at 11:22; Stop at 21:21; Status DC Aspirin (Ecotrin) 81 mg [id number] PO Last administered on 11/03/16 09:26; Start 11/03/16 at 08:00 Nitroglycerin (Nitrostat) 0.4 mg PRN Q5MIN PRN SL CHEST PAIN; Start 11/02/16 at 11:30 Carvedilol (Coreg) 3.125 mg BIDWMEALS PO Last administered on 11/03/16 09:27; Start 11/02/16 at 17:00 Lisinopril (Prinivil) 2.5 mg DAILY PO Last administered on 11/03/16 09:26; Start 11/03/16 at 09:00 Pantoprazole Sodium 40 mg 40 mg DAILYAC PO Last administered on 11/03/16 09:27 ; Start 11/02/16 at 13:00 Heparin Sodium/ Dextrose 500 ml @ 0 mls/hr CONT PRN IV SEE I/O RECORD; Start at 15:00 Info (Anti-Coagulation Monitoring By Pharmacy) 1 each PRN DAILY PRN MC SEE COMMENTS Last administered on 11/03/16 08:05; Start 11/03/16 at 08:15 Active Scripts Active Reported Lipitor (Atorvastatin Calcium) 40 Mg Tablet 40 Mg PO DAILY Coreg (Carvedilol) 12.5 Mg Tablet 1 Tab PO BID Lisinopril 5 Mg Tablet 5 Mg PO BID Effient (Prasugrel Hcl) 10 Mg Tablet 1 Tab PO DAILY Vitals/I & O Vital Sign - Last 24 Hours 11/02/16 11/02/16 11/02/16 11/02/16 12:00 12:00 12:00 12:30 Pulse 76 76 Resp 13 11 B/P 103/74 109/77 Pulse Ox 98 98 O2 Delivery Room Air Room Air Room Air Room Air 11/02/16 11/02/16 11/02/16 11/02/16 13:00 15:00 16:00 16:05 Pulse 74 90 96 Resp 10 12 20 B/P 107/72 117/70 127/89 Pulse Ox 98 98 97 O2 Delivery Room Air Room Air Room Air Room Air O2 Flow Rate 2.0 11/02/16 11/02/16 11/02/16 11/02/16 17:00 17:00 19:00 20:43 Temp 97.7 97.7 Pulse 84 86 93 Resp 13 20 B/P 127/89 114/77 127/80 Pulse Ox 99 98 O2 Delivery Room Air Room Air Room Air 11/02/16 11/03/16 11/03/16 11/03/16 23:15 03:40 07:30 08:00 Temp 98.3 98.4 98.2 98.3 98.4 98.2 Pulse 85 78 79 Resp 18 18 18 B/P 103/73 106/74 114/65 Pulse Ox 97 98 96 O2 Delivery Room Air Room Air Room Air Room Air 11/03/16 11/03/16 11/03/16 09:26 09:27 10:31 Temp 98.2 98.2 Pulse 88 83 Resp 18 B/P 114/65 123/74 Pulse Ox 96 O2 Delivery Room Air Intake and Output 11/02/16 11/02/16 11/03/16 15:00 23:00 07:00 Intake Total 300 ml 240 ml Output Total 0 ml 300 ml Balance 300 ml -60 ml ALLEN HERRMANN MD Nov 03, 2016 12:01
--- NOTE | 2016-11-03 13:39 | PDOC ---
CARDIO Progress Notes Date and Time Date of Service 11/03/2015 Time of Evaluation 1330 Subjective Subjective: No Chest Pain, No shortness of breath, No Palpitations, No Dizziness Vitals Vitals Vital Signs Date Time Temp Pulse Resp B/P Pulse Ox O2 Delivery O2 Flow Rate FiO2 11/03/16 10:31 98.2 83 18 123/74 96 Room Air 98.2 11/02/16 16:05 2.0 Weight Weight [ ] Input and Output Intake and Output Intake and Output 11/03/16 07:00 Intake Total 540 ml Output Total 300 ml Balance 240 ml Intake Oral 540 ml Output Urine Total 300 ml Laboratory Labs Laboratory Tests Test 11/02/16 20:47 11/03/16 05:30 11/03/16 12:30 Heparin Anti-Xa Act, Unfractionated 0.12IU/mL (0.30-0.70) 0.14IU/mL (0.30-0.70) 0.25IU/mL (0.30-0.70) White Blood Count 13.5x10^3/uL (4.0-11.0) Red Blood Count 4.88x10^6/uL (4.30-5.70) Hemoglobin 14.6g/dL (13.0-17.5) Hematocrit 44.2% (39.0-53.0) Mean Corpuscular Volume 91fL (79-100) Mean Corpuscular Hemoglobin 30pg (25-35) Mean Corpuscular Hemoglobin Concent 33g/dL (31-37) Red Cell Distribution Width 12.9% (11.5-14.5) Platelet Count 358x10^3/uL (140-400) Physical Exam HEENT: Neck Supple W Full Motion Chest: Symmetric LUNGS: Clear to Auscultation Heart: S1S2, RRR Abdomen: Soft N/T Extremities: No Calf Tenderness Neurology: alert, oriented, follow commands Other Exams right groin arteriotomy site intact with dressing. No erythema, swelling nor hematoma to site. Intact neurovascular status to bilateral LE extremities. Assessment Assessment 1. NSTEMI: Troponin peaked at 2.7 precath. [facility] noted multivessel disease with results noted below. CTS is following and viability study underway in AM for CABG consideration. Continue with heparin infusion. ASA. Off effient with last dose 2 days ago. Left main. 60% proximal lesion. LAD. 60% restenosis in mid stent. LAD wraps around the apex. LCX. 20% mid lesion, 75% proximal RI branch lesion. RCA. Non dominant. Patent stent. 2. CAD: PCI/stent 03/2010 to LAD. Continue with secondary prevention. 3. Ischemic cardiomyopathy: EF 30%. Clinically compensated. SR without significant ectopies overnight. 4. GERD: PPI 4. HTN: controlled. continue low dose coreg and lisinopril. 5. HLP:on goal lipids. statin 6. hx of Right knee meniscal tear JESSICA MONTANO TAB CUTTING MACHINE OPERATOR Nov 03, 2016 13:39
--- NOTE | 2016-11-03 14:29 | RAD ---
Indication preop. Anticipated coronary artery bypass surgery. Noncontrast imaging through the chest was performed. No prior CT imaging of the chest is available. Imaging through the upper abdomen is unremarkable. Pectus deformity is noted. The ascending thoracic aorta appears normal. There is no significant plaquing. There is very minimal plaquing involving the arch. The descending thoracic aorta appears unremarkable. There is some minimal parenchymal irregularity most compatible with scarring in the left lower lobe. Acute parenchymal infiltrate is not seen. A dominant soft tissue mass is not seen. IMPRESSION: No acute finding in the chest. No significant plaquing is seen associated with the ascending thoracic aorta. Minimal scarring at the left lung base PQRS Compliance Statement: One or more of the following individualized dose reduction techniques were utilized for this examination: 1. Automated exposure control 2. Adjustment of the mA and/or kV according to patient size 3. Use of iterative reconstruction technique
[2016-11-03 14:35] VITALS: BP 136/83
--- NOTE | 2016-11-03 15:06 | RAD ---
Indication anticipated coronary artery bypass surgery. Protocol study. Grayscale color Doppler and spectral imaging was performed. Examination was targeted to the carotid bifurcations. On the right there is some mild plaquing at the bifurcation. The color Doppler images do not suggest significant turbulence. The common carotid waveform and velocities are normal. The measured waveforms and velocities associated with the internal carotid are also normal. The external carotid has a normal appearance. The vertebral is patent and demonstrates normal antegrade flow. On the left there is also some intimal thickening and plaquing similar to the contralateral side. The color Doppler images do not suggest significant turbulence. The common carotid waveform and velocities are normal. The internal carotid waveform and velocities are also normal. The external carotid has a normal appearance. The vertebral is patent and demonstrates normal directional flow. IMPRESSION: No evidence of hemodynamically significant stenosis at either carotid bifurcation. Stenosis 0-50%. Note: Stenosis calculations for CT, MR and conventional angiography are based upon determination of the distal ICA diameter in accordance with the NASCET methodology. Stenosis calculations for doppler studies are derived from validated velocity criteria which are known to correlate with NASCET methodology of determining stenosis.
[2016-11-03 19:00] VITALS: BP 118/76
[2016-11-03] MEDS: ATORVASTATIN CALCIUM 40 MG TABLET. PO SCH (20:25)
[2016-11-03 23:00] VITALS: BP 111/72
[2016-11-04 03:00] VITALS: BP 118/74
[2016-11-04 07:15] VITALS: BP 115/74
[2016-11-04] MEDS: PANTOPRAZOLE 40 MG TABLET. PO SCH (10:11)
[2016-11-04] MEDS: ASPIRIN ENTERIC COATED 81 MG TABLET.DR. PO SCH (10:11)
[2016-11-04] MEDS: CARVEDILOL 3.125 MG TABLET PO SCH (10:12)
--- NOTE | 2016-11-04 10:25 | PDOC ---
CARDIO Progress Notes Date and Time Date of Service 11/04/2016 Time of Evaluation 1009 Subjective Subjective: No Chest Pain, No shortness of breath, No Palpitations, No Dizziness Vitals Vitals Vital Signs Date Time Temp Pulse Resp B/P Pulse Ox O2 Delivery O2 Flow Rate FiO2 11/04/16 08:00 Room Air 11/04/16 07:15 98.2 75 16 115/74 97 98.2 Weight Weight [ ] Input and Output Intake and Output Intake and Output 11/04/16 07:00 Intake Total 1000 ml Output Total 3050 ml Balance -2050 ml Intake Oral 1000 ml Output Urine Total 3050 ml # Voids 2 Laboratory Labs Laboratory Tests Test 11/03/16 12:30 Heparin Anti-Xa Act, Unfractionated 0.25IU/mL (0.30-0.70) Physical Exam HEENT: Neck Supple W Full Motion Chest: Symmetric LUNGS: Clear to Auscultation Heart: S1S2, RRR, no gallops, no murmurs, other (tele: SR with short run of ST - asymptomatic) Abdomen: Soft N/T Extremities: 2+ Dorsalis Pedis, 2+ Posterior Tibial, No Edema, No Calf Tenderness Neurology: alert, oriented, follow commands Assessment Assessment 1. NSTEMI: Troponin peaked at 2.7 precath. [facility] with multivessel disease - patent RCA stent CTS evaluation in progress with viability study pending CDU and CT scan of chest without significant findings ? CABG on 11/09/2016 2. CAD: PCI/stent 03/2010 to LAD off Effient since 11/02/2016 ACEI stopped today Continue with secondary prevention. 3. Ischemic cardiomyopathy: LVEF depressed @ 30%. Clinically compensated. no ventricular ectopies 4. hypertension, benign essential continue beta-blockers off ACEI due to pending cardiac surgery 5. Hyperlipidemia with low HDLs LDLs = 60 on statin therapy no changes recommended KARLEE OLIVO APRN Nov 04, 2016 10:25
[2016-11-04 11:16] VITALS: BP 120/86
--- NOTE | 2016-11-04 11:54 | DISCH ---
DISCHARGE INSTRUCTIONS Condition on Discharge Condition on Discharge: Stable Activity After Discharge Activity Instructions for Disc: No restrictions Diet after Discharge Diet after Discharge: Cardiac Contacting the DR. after DC Call your doctor for: If your condition worsens Follow-Up Follow up with: preop testing and surgery as arranged ALLEN HERRMANN MD Nov 04, 2016 11:54
--- NOTE | 2016-11-04 14:12 | PDOC ---
Progress Note Subjective Subjective Doing well no chest pain or shortness of breath. Carotid duplex did not show significant stenosis. CT of the chest did not show any ascending aortic calcifications or lung parenchymal abnormalities. He also completed his MPI, which shows that the anterior wall, septum and inferior wall are all viable. The only nonviable region is the apex. ROS ROS No nausea No vomiting No pain No rash Vital Sign Vital Signs Vital Signs Date Time Temp Pulse Resp B/P Pulse Ox O2 Delivery O2 Flow Rate FiO2 11/04/16 11:16 98.2 86 16 120/86 96 Room Air 98.2 Physical Exam PHYSICAL EXAM GENERAL: NAD, Alert HEENT: PERRL, OC/OP NECK: Supple, no JVD, no LN LUNGS: Clear HEART: S1S2, no gallop, no murmur ABD: Soft, NT, no organomegaly, no rebound EXT: No edema, no cyanosis PLANT SUPERVISOR: Alert, oriented x 3, no focal neurologic deficit SKIN: No rash IV: ok Objective Assessment 51-year-old male with ischemic cardiomyopathy and severely depressed left ventricular function, and 60% left main disease, presented with non-STEMI. MPI showed that the left ventricular myocardium is viable apart from the apex. His ejection fraction is approximately 30%. Plan Plan of Care Will proceed with CABG 2 (REYES to LAD, SVG to obtuse marginal), on Monday, November 09, 2016. Patient was on Effient, thus the 1 week wait prior to surgery. Hold SANDRINE inhibitor ASA okay The risks, benefits and limitations of the procedure were explained to the patient. I quoted a mortality of 5% owing to his severe ischemic cardiomyopathy. I also explained that the 3-5% chance of stroke, renal failure, infection, pneumonia, VDRF, hemorrhage requiring re-sternotomy, myocardial infarction, and a 30% risk of arrhythmias. The patient accepts these risks and agrees to proceed. Needs vein mapping and 2 units crossmatch, which will be performed as an outpatient, one day prior to surgery. TERESA LEONG MD Nov 04, 2016 14:12
--- NOTE | 2016-11-04 17:19 | CARD ---
APPROVED REPORT Procedures Left heart catheterization. Left ventriculogram. Selective coronary angiogram. The patient is a 51-year-old male with a history of stenting and a previous myocardial infarction in 2009. He was admitted with episodes of chest pain and had a mild elevation in troponin. In the settin g of his history and presentation with chest pain and a mildly elevated troponin level a cardiac cath eterization was recommended. Risks and benefits were discussed. The patient has agreed to proceed. After informed consent was obtained the patient was brought to the heart catheterization lab. The are a of the right femoral artery was prepared in the usual manner with Betadine, sterile draping and loc al anesthetic. An 18-gauge needle was used to enter the right femoral artery, a wire placed and a 6 F rench sheath placed over the wire. A 6 Albanian JL4 diagnostic catheter was advanced to the ascending a yandel. It was used to engage the left coronary system. With engagement there was mild damping. Sequent ial injections in various views were obtained. A 6 Albanian Manjinder right diagnostic catheter was adva nced ascending aorta. It was used to engage the right coronary artery and a single injection was perf ormed. A pigtail catheter was advanced to the ascending aorta and then the left ventricle. A 30 OVIEDO left ventriculogram was performed. Pullback pressures were measured. The catheter was removed from th e patient. Injection of the sheath showed normal placement. The sheath was removed and sealed with an Angio-Seal product. There were no immediate complications. Findings. Hemodynamics. LV pressure 108/14, aortic root pressure 104/80. Left ventriculogram. Left ventricle showed severe hypokinesis in the distal anterior, apical and distal inferior pickens. Ej ection fraction was estimated at 30%. Coronaries. Left main. The left main had an ostial 60% lesion. Left anterior descending. The LAD had a proximal to mid previously placed stent with approximately 70 % restenosis. The distal vessel was a wraparound vessel. Left circumflex. The left circumflex had a mid 20-25% lesion. There was a small ramus intermediate br anch with a proximal 75% lesion. Right coronary artery. The right coronary was a small nondominant vessel. It had a widely patent mid stent. <Conclusion> 60% or greater left main lesion. Restenosis in a mid LAD stent of approximate 70%. Mild disease in the left circumflex vessel. Widely patent stent in a nondominant right coronary artery. Small ramus intermediate branch with a proximal 75% lesion. Significantly decreased LV systolic function with distal anterior, apical and distal inferior wall se maria de jesus hypokinesis with an ejection fraction of 30%.
--- NOTE | 2016-11-07 10:28 | RAD ---
APPROVED REPORT Imaging Protocol IMAGE PROTOCOL: Viability only Rest: Stress: Viability: Radiopharm.Thallium Thallium [id number] 1mCi Duration 15min. 20min. Img Date 11/04/2016 11/04/2016 Inj-Img [id number]. 2400min. Viability without Stress The patient was injected with 4mCi of Thallium 201 in the IV - Left Antecubital by ABBY Crawford t 11/04/2016, 08:22 Date/Time. Initial Imaging was performed by ABBY Crawford at 11/04/2016, 0900 Date/Time. The patient was injected with 1mCi of Thallium 201 in the IV - Left Antecubital by ABBY Crawford a t 11/04/2016, 0915 Date/Time. Delayed Images were acquired by ABBY Crawford at 11/04/2016, 1230 Date/Time. Motion Correction: Yes LV Perfusion Immediate post injection rest images demonstrate a large basal to apical inferior, infero-lateral, se ptal and apical infarct. Based on initial resting images, the apex does not appear to be viable. 4 hour delayed rest redistribution images demonstrate persistent apical infarct suggesting a lack of viability ONLY in the apex. The remainder of the inferior wall, septum and inferolateral pickens appear to have a prior infarct but still remain viable based on uptake of tracer. Wall Motion No gating was performed on this study. LV Perf. Quant 17 Seg. SSS18.00 17 Seg. SRS11.00 17 Seg. SDS7.00 Stress Defect Extent (% LAD)55.60Rest Defect Extent (% LAD)43.80Rev. Defect Extent (% LAD)11.30 Stress Defect Extent (% LCX) 17.50Rest Defect Extent (% LCX)15.00Rev. Defect Extent (% LCX)0.00 Stress Defect Extent (% RCA)21.10Rest Defect Extent (% RCA)13.30Rev. Defect Extent (% RCA)2.20 Stress Defect Extent (% KATELYN)38.50Rest Defect Extent (% KATELYN)29.30Rev. Defect Extent (% KATELYN)5.20 Other Information Quality:Good Risk Assessment: Moderate-High Risk Conclusion 1. Apical infarct without viability. 2. Large previous inferior/septal infarct which remains viable. 3. Moderate to high risk study.
== END 2016-11-04 14:25 | disposition home or self-care (01) | DRG 282 ==
LOC: ER 18:11 → 6 SOUTH 20:02 → 1 WEST ICU 11-02 06:21 → 2 SOUTH 11-02 19:27
PROVIDERS: ADMIT Internal Medicine Hematology & Oncology; ATTEND Internal Medicine Hematology & Oncology
PROC: 4A023N7 Measurement of Cardiac Sampling and Pressure, Left Heart, Percutaneous Approach (ICD-10-PCS; principal; 2016-11-04)
PROC: B2151ZZ Fluoroscopy of Left Heart using Low Osmolar Contrast (ICD-10-PCS; 2016-11-04)
PROC: B2111ZZ Fluoroscopy of Multiple Coronary Arteries using Low Osmolar Contrast (ICD-10-PCS; 2016-11-04)
DX: I21.4 Non-ST elevation (NSTEMI) myocardial infarction (principal); K21.9 Gastro-esophageal reflux disease without esophagitis; I25.10 Atherosclerotic heart disease of native coronary artery without angina pectoris; E78.5 Hyperlipidemia, unspecified; M19.90 Unspecified osteoarthritis, unspecified site; I11.0 Hypertensive heart disease with heart failure; E78.00 Pure hypercholesterolemia, unspecified; I25.5 Ischemic cardiomyopathy; I50.9 Heart failure, unspecified; Z82.49 Family history of ischemic heart disease and other diseases of the circulatory system; Z95.1 Presence of aortocoronary bypass graft; Z95.5 Presence of coronary angioplasty implant and graft; Z88.5 Allergy status to narcotic agent; Z79.82 Long term (current) use of aspirin; Z79.899 Other long term (current) drug therapy; Z98.890 Other specified postprocedural states
CPT/HCPCS: 36415; 71010; 71250; 78452; 80048; 80061; 80076; 82553; 83690; 83735; 83880; 84443; 84484; 85027; 85347; 85520; 85610; 85730; 93005; 93306; 93458; 93880; 96361; 96374; 96376; A9505; C1769; C1771; C1892; G0269; J2250; J2405; J3010; J7030; Q9967; 99285-25

== ENCOUNTER → 2016-11-08 | Outpatient (CLI) | payer BC ==
[2016-11-04 11:16] VITALS: BP 120/86
[~2016-11-08] MED LIST: ASPI325T4 PO; ATOR40TA PO; CARV12.5 PO; LISI-338 PO; LISI10TA2 PO; PRAS10TA4 PO
== END | disposition home or self-care (01) ==
LOC: SURGPAT 09:04
PROVIDERS: ATTEND Thoracic Surgery (Cardiothoracic Vascular Surgery)
DX: Z01.818 Encounter for other preprocedural examination (principal)
CPT/HCPCS: 36415; 86850; 86900; 86901; 86920; 87641

== ENCOUNTER → 2016-11-08 | Outpatient (CLI) | payer BC ==
[2016-11-04 11:16] VITALS: BP 120/86
--- NOTE | 2016-11-08 12:02 | RAD ---
APPROVED REPORT Patient Location: OUT-PATIENT Indications Preop CABG Vein Measurements Great Saphenous Small Saphenous RightLeft RightLeft Saph-Fem. Junction 6.60mm3.60mmProximal 2.10mm2.20mm Mid Thigh 2.70mm3.20mmMid 2.20mm2.00mm Distal Thigh 1.60mm3.10mmDistal 2.00mm2.20mm Proximal Calf 1.00mm2.00mm Mid Calf 1.60mm1.60mm Distal Calf 1.60mm2.00mm Findings Limited grayscale images of the bilateral greater and lesser saphenous veins do not demonstrate any e vidence of thrombus. The right great saphenous vein measures 6.6 mm in greatest diameter proximally with more acute narrowing of the vessel in the mid thigh measurement of approximately 1.6 mm. The ri ght lesser saphenous vein measures 2.1 mm throughout its course. The left greater saphenous vein is more uniform in dimension in the proximal to mid segments. The distal rater saphenous vein on the le ft side measures approximately 2 mm. The left lesser saphenous vein is uniform in measurement of regina roximately 2.1 mm throughout its course. Critical Notification Critical Value: No <Conclusion> Overall, suitable bilateral greater and lesser saphenous veins with more uniform dimensions in the le ft greater and lesser saphenous veins.
== END | disposition home or self-care (01) ==
LOC: US 12:39
PROVIDERS: ATTEND Nurse Practitioner
DX: Z01.818 Encounter for other preprocedural examination (principal); Z95.1 Presence of aortocoronary bypass graft
CPT/HCPCS: 93970

== ENCOUNTER → 2016-11-25 | Outpatient (CLI) | payer BC ==
[2016-11-14 11:57] VITALS: BP 128/91
[~2016-11-25] MED LIST changes: +METO25TA9 PO; +TRAM50TA PO
--- NOTE | 2016-11-25 12:30 | RAD ---
Chest, 2 views, 11/25/2016: History: Postop CABG Comparison is made to a study from 11/12/2016. The heart size and pulmonary vascularity are normal. Previously seen pleural-parenchymal opacities in the left base have cleared. No acute infiltrates are seen. No significant residual pleural fluid is evident. Mild spurring is present in the spine. IMPRESSION: 1. Interval clearing of the left lung base. 2. No significant postoperative cardiopulmonary abnormality is detected.
== END | disposition home or self-care (01) ==
LOC: RAD 12:07
PROVIDERS: ATTEND Thoracic Surgery (Cardiothoracic Vascular Surgery)
DX: Z95.1 Presence of aortocoronary bypass graft (principal)
CPT/HCPCS: 71020

== ENCOUNTER → 2017-02-10 | Outpatient (CLI) | payer BC ==
[2016-11-14 11:57] VITALS: BP 128/91
[~2017-02-10] MED LIST changes: +REGADENOSON 0.4 MG/5 ML DISP.SYRIN. IV ONE
== END | disposition home or self-care (01) ==
LOC: PCVCIMAG 12:05
PROVIDERS: ATTEND Internal Medicine Cardiovascular Disease
DX: I25.10 Atherosclerotic heart disease of native coronary artery without angina pectoris (principal); I63.9 Cerebral infarction, unspecified; Z95.5 Presence of coronary angioplasty implant and graft; Z95.1 Presence of aortocoronary bypass graft
CPT/HCPCS: 78452; 85610; 93017; A9500; J2785

== ENCOUNTER 2019-03-27 00:36 | Emergency (ER) | payer BC ==
[~2019-03-27] VITALS: Ht 167.6 cm; Wt 60.3 kg
[~2019-03-27 00:36] MED LIST changes: -ASPI325T4 PO; +ASPI325T8 PO; +METO-239 PO; -METO25TA9 PO; -PRAS10TA4 PO; +PRAS10TA9 PO; -REGADENOSON 0.4 MG/5 ML DISP.SYRIN. IV ONE
[2019-03-27 01:36] LABS: BASO # 0.1 x10^3/uL (0.0-0.2); BASO % 1 % (0-3); EOS # 0.2 x10^3/uL (0.0-0.7); EOS % 2 % (0-3); HEMATOCRIT 44.7 % (39.0-53.0); HEMOGLOBIN 15.1 g/dL (13.0-17.5); LYMPH # 2.5 x10^3/uL (1.0-4.8); LYMPH % 19 % (24-48); MEAN CORPUSCULAR HEMOGLOBIN 31 pg (25-35); MEAN CORPUSCULAR HGB CONC 34 g/dL (31-37); MEAN CORPUSCULAR VOLUME 91 fL (79-100); MONO # 1.2 x10^3/uL (0.0-1.1); MONO % 9 % (0-9); NEUT # 9.1 x10^3uL (1.8-7.7); NEUT % 69 % (31-73); PLATELET COUNT 329 x10^3/uL (140-400); RED BLOOD COUNT 4.92 x10^6/uL (4.30-5.70); RED CELL DISTRIBUTION WIDTH 13.1 % (11.5-14.5); WHITE BLOOD COUNT 13.1 x10^3/uL (4.0-11.0)
[2019-03-27 01:41] LABS: BILIRUBIN,URINE NEGATIVE (NEG); CLARITY,URINE CLEAR; COLOR,URINE YELLOW; NITRITE,URINE NEGATIVE (NEG); PH,URINE 6.5; PROTEIN,URINE 30 mg/dL (NEG-TRACE)
[2019-03-27 01:57] LABS: CALCIUM 9.7 mg/dL (8.5-10.1); CREATININE 1.2 mg/dL (0.7-1.3); GFR 62.6; POTASSIUM 3.6 mmol/L (3.5-5.1)
[2019-03-27] MEDS ORDERED: ONDANSETRON PF 4 MG/2 ML VIAL. IV ONE (02:00)
[2019-03-27] MEDS ORDERED: KETOROLAC 30 MG/ML VIAL. IV ONE (02:00)
[2019-03-27 02:03] LABS: ALBUMIN 3.8 g/dL (3.4-5.0); ALBUMIN/GLOBULIN RATIO 1.1 (1.0-1.7); TOTAL BILIRUBIN 0.6 mg/dL (0.2-1.0); TOTAL PROTEIN 7.4 g/dL (6.4-8.2)
[2019-03-27 02:07] LABS: BACTERIA,URINE FEW /HPF (0-FEW); HYALINE CASTS, URINE FEW /HPF; SQUAMOUS EPITHELIAL CELL,UR MOD /LPF
--- NOTE | 2019-03-27 02:17 | RAD ---
PQRS Compliance statement: One or more of the following individualized dose reduction techniques were utilized for this examination: 1. Automated exposure control. 2. Adjustment of the mA and/or kV according to patient size. 3. Use of iterative reconstruction technique. Indication:Abdominal pain TECHNIQUE: CT abdomen and pelvis without IV contrast with multiplanar reformats. COMPARISON: None FINDINGS: Limited evaluation of solid abdominal and pelvic organs due to lack of IV contrast. Pectus excavatum deformity noted. Heart is normal in size. No pericardial or pleural effusion. Clear lung bases. Noncontrast appearance of the liver, spleen, gallbladder, pancreas, adrenals and kidneys are within normal limits. No enlarged retroperitoneal or pelvic adenopathy. No free pelvic fluid or ascites. The prostate and seminal vesicles show no large mass. No bowel obstruction. Normal appendix. Circumferential wall thickening is seen of the proximal colon up to the level of splenic flexure. Urinary bladder demonstrates no radiopaque stones. No pneumoperitoneum. No suspicious bony lesion. IMPRESSION: Limited evaluation of solid abdominal and pelvic organs due to lack of IV contrast. Proximal colitis up to the level of splenic flexure. Electronically signed by: Nick Lynn DO (03/27/2019 2:14 AM) [facility]
[2019-03-27] MEDS ORDERED: diphenhydrAMINE 50 MG/ML VIAL IVP ONE (02:30)
[2019-03-27] MEDS ORDERED: ONDA4TAB7 PO (03:02)
--- NOTE | 2019-03-27 03:02 | PHYS DOC ---
Past Medical History Past Medical History: CAD, High Cholesterol, Hypertension, [place] Past Surgical History: Other Additional Past Surgical Histo: HEART CATH STENTS X'S 2 Alcohol Use: Occasionally Drug Use: None Adult General Chief Complaint Chief Complaint: ABDOMINAL PAIN [facility] HPI Patient is a 54 year old male who was in by EMS because of abdominal pain. Patient complaining of cramping lower abdominal pain that started about an over prior to arrival to ER as a cramping and severe pain and activities pain 9/10. Patient complaining of nausea without vomiting, constipation, fever and chills and urinary symptom. Patient states he had the feeling of bowel movement and had 1 loose stool without change of his pain. Patient states he had the same pain previously left attenuation. Patient had colonoscopy. Patient had extensive cardiac history denies chest pain and shortness of breath today. Review of Systems Review of Systems Constitutional: Denies fever or chills [] Eyes: Denies change in visual acuity, redness, or eye pain [] HENT: Denies nasal congestion or sore throat [] Respiratory: Denies cough or shortness of breath [] Cardiovascular: No additional information not addressed in HPI [] GI: Reports abdominal pain, nausea, denies vomiting, bloody stools . : Denies dysuria or hematuria [] Musculoskeletal: Denies back pain or joint pain [] Integument: Denies rash or skin lesions [] Neurologic: Denies headache, focal weakness or sensory changes [] Endocrine: Denies polyuria or polydipsia [] All other systems were reviewed and found to be within normal limits, except as documented in this note. Current Medications Current Medications Current Medications Medications (Trade) Dose Ordered Sig/[facility] Start Time Stop Time Status Last Admin Dose Admin Diphenhydramine HCl (Benadryl) 50 mg 1X ONCE 03/27/19 02:30 03/27/19 02:31 DC 03/27/19 02:23 50 MG Ketorolac Tromethamine (Toradol 30mg Vial) 30 mg 1X ONCE 03/27/19 02:00 03/27/19 02:01 DC 03/27/19 01:34 30 MG Ondansetron HCl (Zofran) 4 mg 1X ONCE 03/27/19 02:00 03/27/19 02:01 DC 03/27/19 01:34 4 MG Allergies Allergies Allergies Coded Allergies Type Severity Reaction Last Updated Verified No Known Medication Allergies Allergy Unknown 1/11/17 Yes morphine Adverse Reaction Intermediate Nausea and Vomiting 11/09/16 Yes Physical Exam Physical Exam Constitutional: Mild distress, non-toxic appearance. [] HENT: Normocephalic, atraumatic,oropharynx moist. Eyes: PERRLA, EOMI, conjunctiva normal, no discharge. [] Neck: Normal range of motion, no tenderness, supple, no stridor. [] Cardiovascular:Heart rate regular rhythm, no murmur [] Lungs & Thorax: Bilateral breath sounds clear to auscultation [] Abdomen: Bowel sounds normal, soft, no tenderness, no masses, no pulsatile masses. [] Skin: Warm, dry, no erythema, no rash. [] Back: No tenderness, no CVA tenderness. [] Extremities: No tenderness, no cyanosis, no clubbing, ROM intact, no edema. [] Neurologic: Alert and oriented X 3, normal motor function, normal sensory function, no focal deficits noted. [] Psychologic: Affect Anxious, judgement normal, mood normal. [] Current Patient Data Vital Signs Vital Signs Date Time Temp Pulse Resp B/P (MAP) Pulse Ox O2 Delivery O2 Flow Rate FiO2 03/27/19 03:07 70 14 127/85 (99) 97 Room Air 03/27/19 00:40 97.0 97.0 Lab Values Laboratory Tests Test 03/27/19 01:11 03/27/19 01:16 Urine Collection Type Unknown Urine Color Yellow Urine Clarity Clear Urine pH 6.5 Urine Specific [place] 1.025 Urine Protein 30 mg/dL (NEG-TRACE) Urine Glucose (UA) Negative mg/dL (NEG) Urine Ketones (Stick) Negative mg/dL (NEG) Urine Blood Negative (NEG) Urine Nitrite Negative (NEG) Urine Bilirubin Negative (NEG) Urine Urobilinogen Dipstick 1.0 mg/dL (0.2 mg/dL) Urine Leukocyte Esterase Negative (NEG) Urine RBC 6-10 /HPF (0-2) Urine WBC 1-4 /HPF (0-4) Urine Squamous Epithelial Cells Mod /LPF Urine Bacteria Few /HPF (0-FEW) Urine Hyaline Casts Few /HPF Urine Mucus Mod /LPF White Blood Count 13.1 x10^3/uL (4.0-11.0) H Red Blood Count 4.92 x10^6/uL (4.30-5.70) Hemoglobin 15.1 g/dL (13.0-17.5) Hematocrit 44.7 % (39.0-53.0) Mean Corpuscular Volume 91 fL (79-100) Mean Corpuscular Hemoglobin 31 pg (25-35) Mean Corpuscular Hemoglobin Concent 34 g/dL (31-37) Red Cell Distribution Width 13.1 % (11.5-14.5) Platelet Count 329 x10^3/uL (140-400) Neutrophils (%) (Auto) 69 % (31-73) Lymphocytes (%) (Auto) 19 % (24-48) L Monocytes (%) (Auto) 9 % (0-9) Eosinophils (%) (Auto) 2 % (0-3) Basophils (%) (Auto) 1 % (0-3) Neutrophils # (Auto) 9.1 x10^3uL (1.8-7.7) H Lymphocytes # (Auto) 2.5 x10^3/uL (1.0-4.8) Monocytes # (Auto) 1.2 x10^3/uL (0.0-1.1) H Eosinophils # (Auto) 0.2 x10^3/uL (0.0-0.7) Basophils # (Auto) 0.1 x10^3/uL (0.0-0.2) Sodium Level 140 mmol/L (136-145) Potassium Level 3.6 mmol/L (3.5-5.1) Chloride Level 98 mmol/L (98-107) Carbon Dioxide Level 30 mmol/L (21-32) Anion Gap 12 (6-14) Blood Urea Nitrogen 19 mg/dL (8-26) Creatinine 1.2 mg/dL (0.7-1.3) Estimated GFR (Cockcroft-Gault) 62.6 BUN/Creatinine Ratio 16 (6-20) Glucose Level 142 mg/dL (70-99) H Calcium Level 9.7 mg/dL (8.5-10.1) Total Bilirubin 0.6 mg/dL (0.2-1.0) Aspartate Amino Transferase (AST) 42 U/L (15-37) H Alanine Aminotransferase (ALT) 46 U/L (16-63) Alkaline Phosphatase 72 U/L (46-116) Total Protein 7.4 g/dL (6.4-8.2) Albumin 3.8 g/dL (3.4-5.0) Albumin/Globulin Ratio 1.1 (1.0-1.7) Lipase 215 U/L (73-393) Laboratory Tests 03/27/19 01:16 Laboratory Tests 03/27/19 01:16 EKG EKG [] Radiology/Procedures Radiology/Procedures [facility] [address] [place] [address] IMAGING REPORT Signed PATIENT: CARA SOUSA ACCOUNT: [id number] : 1965 LOCATION: ER AGE: 54 SEX: M EXAM STATUS: REG ER ORD. PHYSICIAN: ANA CHANDRA MD REASON: Abdominal pain PROCEDURE: CT ABDOMEN PELVIS WO CONTRAST PQRS Compliance statement: One or more of the following individualized dose reduction techniques were utilized for this examination: 1. Automated exposure control. 2. Adjustment of the mA and/or kV according to patient size. 3. Use of iterative reconstruction technique. Indication:Abdominal pain TECHNIQUE: CT abdomen and pelvis without IV contrast with multiplanar reformats. COMPARISON: None FINDINGS: Limited evaluation of solid abdominal and pelvic organs due to lack of IV contrast. Pectus excavatum deformity noted. Heart is normal in size. No pericardial or pleural effusion. Clear lung bases. Noncontrast appearance of the liver, spleen, gallbladder, pancreas, adrenals and kidneys are within normal limits. No enlarged retroperitoneal or pelvic adenopathy. No free pelvic fluid or ascites. The prostate and seminal vesicles show no large mass. No bowel obstruction. Normal appendix. Circumferential wall thickening is seen of the proximal colon up to the level of splenic flexure. Urinary bladder demonstrates no radiopaque stones. No pneumoperitoneum. No suspicious bony lesion. IMPRESSION: Limited evaluation of solid abdominal and pelvic organs due to lack of IV contrast. Proximal colitis up to the level of splenic flexure. Electronically signed by: Nick Lynn DO (03/27/2019 2:14 AM) [facility] DICTATED and SIGNED BY: NICK LYNN DO DATE: 03/27/19 021 Course & Med Decision Making Course & Med Decision Making Pertinent Labs and Imaging studies reviewed. (See chart for details) Evaluation of patient in ER showed 64-year-old male patient brought in by EMS because of cramping abdominal pain. Patient didn't want a narcotic pain medication and treated with Toradol and Benadryl and Zofran with improvement of his condition. Labs and CT abdomen and pelvis was unremarkable except for colitis. Patient had episode of the same pain previously. Patient had change of diarrhea 217. Patient was advised to take liquid diet and follow up with his primary care physician for possible referral for colonoscopy. Dragon Disclaimer Dragon Disclaimer This electronic medical record was generated, in whole or in part, using a voice recognition dictation system. Departure Departure Impression: Primary Impression: Colitis Additional Impressions: Abdominal pain Anxiety Disposition: HOME, SELF-CARE (at 0300) Condition: IMPROVED Referrals: JERRELL POLLOCK MD (PCP) Patient Instructions: Abdominal Pain, Colitis Additional Instructions: Drink plenty of liquids, do not take solid food today Follow-up with your primary care physician in 2-3 days Return to ER if not getting better Continue home pain medication Scripts Ondansetron Hcl (ZOFRAN) 4 Mg Tablet 1 TAB PO PRN Q6-8HRS for nausea, #12 TAB Prov: ANA CHANDRA MD 03/27/19 Problem Qualifiers Additional Impressions: Abdominal pain Abdominal location: unspecified location Qualified Codes: R10.9 - Unspecified abdominal pain ANA CHANDRA MD March 27, 2019 03:02
[2019-03-27 03:07] VITALS: BP 127/85
[2019-03-27] MEDS ORDERED: RIVA20TA2 PO (17:57)
[2019-03-27] MEDS ORDERED: CARV6.25 PO (17:57)
[2019-03-27] MEDS ORDERED: LISI2.5T PO (17:57)
[2019-03-27] MEDS ORDERED: ASPI-630 PO (17:57)
== END 2019-03-27 03:24 | disposition home or self-care (01) ==
LOC: ER 00:36
DX: K52.89 Other specified noninfective gastroenteritis and colitis (principal); F41.9 Anxiety disorder, unspecified; I25.10 Atherosclerotic heart disease of native coronary artery without angina pectoris; E78.00 Pure hypercholesterolemia, unspecified; I10 Essential (primary) hypertension
CPT/HCPCS: 36415; 74176; 80053; 81001; 83690; 85025; 96374; 96375; J1200; J1885; J2405; 99285-25

== ENCOUNTER 2019-03-27 11:13 | Inpatient (IN) | payer BC ==
[~2019-03-27] VITALS: Ht 170.2 cm; Wt 59.1 kg
[~2019-03-27 11:13] MED LIST changes: +ONDA4TAB7 PO
[2019-03-27 12:26] LABS: BILIRUBIN,URINE NEGATIVE (NEG); CLARITY,URINE CLOUDY; COLOR,URINE YELLOW; NITRITE,URINE NEGATIVE (NEG); PH,URINE 7.5; PROTEIN,URINE 100 mg/dL (NEG-TRACE)
[2019-03-27 12:28] LABS: BACTERIA,URINE 0 /HPF (0-FEW); RBC,URINE 0 /HPF (0-2); SQUAMOUS EPITHELIAL CELL,UR FEW /LPF; WBC,URINE 0 /HPF (0-4)
[2019-03-27 12:31] LABS: BASO # 0.1 x10^3/uL (0.0-0.2); BASO % 1 % (0-3); EOS % 0 % (0-3); HEMATOCRIT 45.1 % (39.0-53.0); HEMOGLOBIN 15.4 g/dL (13.0-17.5); LYMPH # 1.3 x10^3/uL (1.0-4.8); LYMPH % 8 % (24-48); MEAN CORPUSCULAR HEMOGLOBIN 31 pg (25-35); MEAN CORPUSCULAR HGB CONC 34 g/dL (31-37); MEAN CORPUSCULAR VOLUME 90 fL (79-100); MONO # 1.2 x10^3/uL (0.0-1.1); MONO % 7 % (0-9); NEUT # 13.7 x10^3uL (1.8-7.7); NEUT % 84 % (31-73); PLATELET COUNT 314 x10^3/uL (140-400); RED CELL DISTRIBUTION WIDTH 13.2 % (11.5-14.5); WHITE BLOOD COUNT 16.3 x10^3/uL (4.0-11.0)
[2019-03-27 12:42] LABS: CALCIUM 9.3 mg/dL (8.5-10.1); CREATININE 1.5 mg/dL (0.7-1.3); GFR 48.4; POTASSIUM 3.5 mmol/L (3.5-5.1)
[2019-03-27] MEDS ORDERED: fentaNYL PF VIAL 100 MCG/2 ML VIAL IV ONE (12:45)
[2019-03-27] MEDS ORDERED: ONDANSETRON PF 4 MG/2 ML VIAL. IV ONE (12:45)
[2019-03-27 12:48] LABS: ALBUMIN 3.8 g/dL (3.4-5.0); TOTAL BILIRUBIN 0.7 mg/dL (0.2-1.0); TOTAL PROTEIN 7.6 g/dL (6.4-8.2)
--- NOTE | 2019-03-27 14:20 | PDOC1 ---
History and Physical Date of Admission Date of Admission DATE: 03/27/19 TIME: 14:14 Identification/Chief Complaint Chief Complaint Abdominal pain, right lower quadrant and back pain Source Source: Caregiver, Chart review, Patient History of Present Illness History of Present Illness 54 year old male with a BMI 23, symptoms started maybe yesterday culminated today. Better with fentanyl. History of colitis in the past. Never had a C scope. Abdominal pain, no diarrhea, no fever, nausea but no emesis. WBC 16,000 with normal UA. With CAT scan findings of colitis proximal colon and may be up to the splenic flexure. Better with fentanyl. Nonsmoker nondrinker. History of CABG 2017 here at [facility], [facility], [place] or significant other relay some vasovagal yesterday which prompted ER but was discharged on tramadol, no reason for admission last night. He was not having diarrhea when he had a vasovagal episode in the bathroom. Significant other also tells me about amoxicillin prescribed by dentist for recent tooth extraction. But then again no diarrhea. SO no need to check for c diff Ultrasound ordered by ER and is being done now at bedside. Agreeable to be admitted, initially was hesitant to be on liquid diet - wanted a full diet but after education, became agreeable. No allergies to antibiotics. Past Medical History Cardiovascular: CAD, HTN, Hyperlipidemia Pulmonary: No pertinent hx CENTRAL NERVOUS SYSTEM: Other GI: No pertinent hx Heme/Onc: No pertinent hx Hepatobiliary: No pertinent hx Psych: No pertinent hx Musculoskeletal: Osteoarthritis Rheumatologic: No pertinent hx Infectious disease: No pertinent hx Renal/: No pertinent hx Endocrine: No pertinent hx Past Surgical History Past Surgical History: Arthroscopy, CABG Family History Family History: Coronary Artery Disease, Heart Disease Social History Smoke: No ALCOHOL: rare Drugs: None Current Medications Current Medications Current Medications Fentanyl Citrate (Fentanyl 2ml Vial) 50 mcg 1X ONCE IV Last administered on 03/27/19at 12:43; Start 03/27/19 at 12:45; Stop 03/27/19 at 12:46; Status DC Ondansetron HCl (Zofran) 4 mg 1X ONCE IV Last administered on 03/27/19at 12:41; Start 03/27/19 at 12:45; Stop 03/27/19 at 12:46; Status DC Active Scripts Active Zofran (Ondansetron Hcl) 4 Mg Tablet 1 Tab PO PRN Q6-8HRS Metoprolol Succinate ( Xl ) (Metoprolol Succinate) 25 Mg Tab.er.24h 25 Mg PO DAILY SIG: ONE P.O. DAILY Tramadol Hcl 50 Mg Tablet 50 Mg PO PRN Q6HRS PRN SIG: ONE OR TWO TABS EVERY 6 - 8 HOURS NEEDED FOR PAIN Reported Aspirin 325 Mg Tablet 1 Tab PO DAILY Lipitor (Atorvastatin Calcium) 40 Mg Tablet 40 Mg PO DAILY Allergies Allergies: Coded Allergies: No Known Medication Allergies (Verified Allergy, Unknown, 11/09/16) morphine (Verified Adverse Reaction, Intermediate, Nausea and Vomiting, 11/09/16) ROS Review of System As per history of present illness, the rest of ROS 14 point negative Physical Exam General: Alert, Oriented X3, Cooperative, No acute distress HEENT: Atraumatic, PERRLA, EOMI, Other (pectus excavatum) Lungs: Clear to auscultation, Normal air movement Heart: S1S2, RRR, no thrills, no rubs, no gallops, no murmurs Cardiovascular: S1, S2, Other Abdomen: Normal bowel sounds, Soft, No tenderness, No hepatosplenomegaly, No masses, Other (scaphoid abdomen, minimal tenderness on palpation) Male Genitals Exam: normal genitalia, normal prostate Rectal Exam: not examined PELVIC: Nml ext genitalia Extremities: No clubbing, No cyanosis, No edema, Normal pulses, No tenderness/swelling Skin: No rashes, No breakdown, No significant lesion Neuro: Normal gait, Normal speech, Strength at 5/5 X4 ext, Normal tone, Sensation intact, Cranial nerves 3-12 NL, Reflexes 2+ Psych/Mental Status: Mental status NL, Mood NL Vitals Vitals Vital Signs Date Time Temp Pulse Resp B/P (MAP) Pulse Ox O2 Delivery O2 Flow Rate FiO2 03/27/19 13:21 58 18 159/77 (104) 99 Room Air 03/27/19 11:54 97.5 97.5 Labs Labs Laboratory Tests Test 03/27/19 11:45 03/27/19 12:17 Urine Collection Type Unknown Urine Color Yellow Urine Clarity Cloudy Urine pH 7.5 Urine Specific [place] 1.025 Urine Protein 100 mg/dL (NEG-TRACE) Urine Glucose (UA) Negative mg/dL (NEG) Urine Ketones (Stick) Trace mg/dL (NEG) Urine Blood Negative (NEG) Urine Nitrite Negative (NEG) Urine Bilirubin Negative (NEG) Urine Urobilinogen Dipstick 1.0 mg/dL (0.2 mg/dL) Urine Leukocyte Esterase Negative (NEG) Urine RBC 0 /HPF (0-2) Urine WBC 0 /HPF (0-4) Urine Squamous Epithelial Cells Few /LPF Urine Bacteria 0 /HPF (0-FEW) White Blood Count 16.3 x10^3/uL (4.0-11.0) Red Blood Count 5.00 x10^6/uL (4.30-5.70) Hemoglobin 15.4 g/dL (13.0-17.5) Hematocrit 45.1 % (39.0-53.0) Mean Corpuscular Volume 90 fL (79-100) Mean Corpuscular Hemoglobin 31 pg (25-35) Mean Corpuscular Hemoglobin Concent 34 g/dL (31-37) Red Cell Distribution Width 13.2 % (11.5-14.5) Platelet Count 314 x10^3/uL (140-400) Neutrophils (%) (Auto) 84 % (31-73) Lymphocytes (%) (Auto) 8 % (24-48) Monocytes (%) (Auto) 7 % (0-9) Eosinophils (%) (Auto) 0 % (0-3) Basophils (%) (Auto) 1 % (0-3) Neutrophils # (Auto) 13.7 x10^3uL (1.8-7.7) Lymphocytes # (Auto) 1.3 x10^3/uL (1.0-4.8) Monocytes # (Auto) 1.2 x10^3/uL (0.0-1.1) Eosinophils # (Auto) 0.0 x10^3/uL (0.0-0.7) Basophils # (Auto) 0.1 x10^3/uL (0.0-0.2) Sodium Level 137 mmol/L (136-145) Potassium Level 3.5 mmol/L (3.5-5.1) Chloride Level 99 mmol/L (98-107) Carbon Dioxide Level 25 mmol/L (21-32) Anion Gap 13 (6-14) Blood Urea Nitrogen 26 mg/dL (8-26) Creatinine 1.5 mg/dL (0.7-1.3) Estimated GFR (Cockcroft-Gault) 48.4 BUN/Creatinine Ratio 17 (6-20) Glucose Level 144 mg/dL (70-99) Calcium Level 9.3 mg/dL (8.5-10.1) Total Bilirubin 0.7 mg/dL (0.2-1.0) Aspartate Amino Transf (AST/SGOT) 125 U/L (15-37) Alanine Aminotransferase (ALT/SGPT) 90 U/L (16-63) Alkaline Phosphatase 91 U/L (46-116) Total Protein 7.6 g/dL (6.4-8.2) Albumin 3.8 g/dL (3.4-5.0) Albumin/Globulin Ratio 1.0 (1.0-1.7) Lipase 1285 U/L (73-393) Laboratory Tests Test 03/27/19 11:45 03/27/19 12:17 Urine Collection Type Unknown Urine Color Yellow Urine Clarity Cloudy Urine pH 7.5 Urine Specific [place] 1.025 Urine Protein 100 mg/dL (NEG-TRACE) Urine Glucose (UA) Negative mg/dL (NEG) Urine Ketones (Stick) Trace mg/dL (NEG) Urine Blood Negative (NEG) Urine Nitrite Negative (NEG) Urine Bilirubin Negative (NEG) Urine Urobilinogen Dipstick 1.0 mg/dL (0.2 mg/dL) Urine Leukocyte Esterase Negative (NEG) Urine RBC 0 /HPF (0-2) Urine WBC 0 /HPF (0-4) Urine Squamous Epithelial Cells Few /LPF Urine Bacteria 0 /HPF (0-FEW) White Blood Count 16.3 x10^3/uL (4.0-11.0) Red Blood Count 5.00 x10^6/uL (4.30-5.70) Hemoglobin 15.4 g/dL (13.0-17.5) Hematocrit 45.1 % (39.0-53.0) Mean Corpuscular Volume 90 fL (79-100) Mean Corpuscular Hemoglobin 31 pg (25-35) Mean Corpuscular Hemoglobin Concent 34 g/dL (31-37) Red Cell Distribution Width 13.2 % (11.5-14.5) Platelet Count 314 x10^3/uL (140-400) Neutrophils (%) (Auto) 84 % (31-73) Lymphocytes (%) (Auto) 8 % (24-48) Monocytes (%) (Auto) 7 % (0-9) Eosinophils (%) (Auto) 0 % (0-3) Basophils (%) (Auto) 1 % (0-3) Neutrophils # (Auto) 13.7 x10^3uL (1.8-7.7) Lymphocytes # (Auto) 1.3 x10^3/uL (1.0-4.8) Monocytes # (Auto) 1.2 x10^3/uL (0.0-1.1) Eosinophils # (Auto) 0.0 x10^3/uL (0.0-0.7) Basophils # (Auto) 0.1 x10^3/uL (0.0-0.2) Sodium Level 137 mmol/L (136-145) Potassium Level 3.5 mmol/L (3.5-5.1) Chloride Level 99 mmol/L (98-107) Carbon Dioxide Level 25 mmol/L (21-32) Anion Gap 13 (6-14) Blood Urea Nitrogen 26 mg/dL (8-26) Creatinine 1.5 mg/dL (0.7-1.3) Estimated GFR (Cockcroft-Gault) 48.4 BUN/Creatinine Ratio 17 (6-20) Glucose Level 144 mg/dL (70-99) Calcium Level 9.3 mg/dL (8.5-10.1) Total Bilirubin 0.7 mg/dL (0.2-1.0) Aspartate Amino Transf (AST/SGOT) 125 U/L (15-37) Alanine Aminotransferase (ALT/SGPT) 90 U/L (16-63) Alkaline Phosphatase 91 U/L (46-116) Total Protein 7.6 g/dL (6.4-8.2) Albumin 3.8 g/dL (3.4-5.0) Albumin/Globulin Ratio 1.0 (1.0-1.7) Lipase 1285 U/L (73-393) VTE Prophylaxis Ordered VTE Prophylaxis Devices: Yes VTE Pharmacological Prophylaxi: Yes Assessment/Plan Assessment/Plan acute colitis, proximal colon, splenic flexure SIRS no sepsis POA no organ dysfunction Leukocytosis, tachycardia CABG 2017 Clean UA Lipase 1285-? Significance AK I VMN-he admitted to poor by mouth intake Plan Admit 2 MN IV abx and Liquid diet then ADA T IVF Avoid nephrotoxins RECHECK LIPASE, bmp TOMR SCOTTY CREAT GI consult Follow up ultrasound results done at ER We'll reconcile home meds okay for pills while on liquid diet Dw signif other at bedside Seen at ER ALEX NAVA MD March 27, 2019 14:20
[2019-03-27] MEDS ORDERED: traMADol 50 MG TABLET PO PRN (14:30)
[2019-03-27] MEDS ORDERED: ACETAMINOPHEN 500 MG TABLET PO PRN (14:30)
[2019-03-27] MEDS ORDERED: HYDROcodone/APAP 5/325MG 1 TAB TABLET PO PRN (14:30)
[2019-03-27] MEDS ORDERED: PIP/TAZO PER PHARMACY MC PRN (14:30)
[2019-03-27] MEDS ORDERED: ZOLPIDEM 5 MG TABLET. PO PRN (14:30)
--- NOTE | 2019-03-27 14:37 | RAD ---
ABDOMEN COMPLETE History: Elevated WBC and lipase, abdominal pain Comparison: None. Findings: Multiple sonographic images of the abdomen are submitted. There is no abnormality of the visualized pancreas. Gallbladder is present without intraluminal abnormality, wall thickening, pericholecystic fluid. Abdominal aortic caliber is within normal limits up to 1.7 cm proximally. There is segmental visualization of the inferior vena cava. Hepatic echotexture can be considered within normal limits. Right lobe of the liver measured 14.8 cm longitudinal. Common bile duct is within normal limits at about 0.4 cm. Right kidney measured 11.2 x 4.5 x 4.7 cm, no hydronephrosis. Spleen measured 10.6 cm. Left kidney measured 11.1 x 6.3 x 4.7 cm, no hydronephrosis. Impression: 1. No significant abnormality is demonstrated. Electronically signed by: Felipe Coronado MD (03/27/2019 2:35 PM) [id number]
[2019-03-27] MEDS ORDERED: ONDANSETRON ODT 4 MG TAB.RAPDIS. PO PRN (14:45)
[2019-03-27] MEDS ORDERED: PIPERACILLIN/TAZOBACTAM 3.375 GM in IV NORMAL SALINE 50ML 50 ML IV ONE (14:45)
[2019-03-27] MEDS: ONDANSETRON PF 4 MG/2 ML VIAL. IV PRN ×2 (14:46→21:41)
[2019-03-27] MEDS: fentaNYL PF VIAL 100 MCG/2 ML VIAL IV PRN ×3 (14:48→21:41)
--- NOTE | 2019-03-27 15:32 | PHYS DOC ---
Past Medical History Past Medical History: CAD, High Cholesterol, Hypertension, ID Past Surgical History: Other Additional Past Surgical Histo: HEART CATH STENTS X'S 2 Alcohol Use: Occasionally Drug Use: None Adult General Chief Complaint Chief Complaint: ABDOMINAL PAIN HPI HPI Patient is a 54 year old male with history of hypertension, high cholesterol, CAD with ID in 2017, open-heart surgery, defibrillator, who presents to the ED today complaining of 10 out of 10 cramping right lower quadrant abdominal pain with diarrhea and nausea that began yesterday. Patient states he was seen in the ED early this morning around 3 AM, he states they did a CT which showed he had colitis. He states he was discharged to home and feels her symptoms have not improved. He states he feels her symptoms are getting worse. She states his symptoms are relieved by flexing his knees to his abdomen. Review of Systems Review of Systems Constitutional: Denies fever or chills [] Eyes: Denies change in visual acuity, redness, or eye pain [] HENT: Denies nasal congestion or sore throat [] Respiratory: Denies cough or shortness of breath [] Cardiovascular: No additional information not addressed in HPI [] GI: Reports right lower quadrant abdominal pain, nausea, diarrhea, denies vomiting : Denies dysuria or hematuria [] Musculoskeletal: Denies back pain or joint pain [] Integument: Denies rash or skin lesions [] Neurologic: Denies headache, focal weakness or sensory changes [] All other systems were reviewed and found to be within normal limits, except as documented in this note. Current Medications Current Medications Current Medications Medications (Trade) Dose Ordered Sig/[facility] Start Time Stop Time Status Last Admin Dose Admin Fentanyl Citrate (Fentanyl 2ml Vial) 50 mcg 1X ONCE 03/27/19 12:45 03/27/19 12:46 DC 03/27/19 12:43 50 MCG Ondansetron HCl (Zofran) 4 mg 1X ONCE 03/27/19 12:45 03/27/19 12:46 DC 03/27/19 12:41 4 MG Allergies Allergies Allergies Coded Allergies Type Severity Reaction Last Updated Verified No Known Medication Allergies Allergy Unknown 11/09/16 Yes morphine Adverse Reaction Intermediate Nausea and Vomiting 11/09/16 Yes Physical Exam Physical Exam Constitutional: Well developed, well nourished, no acute distress, non-toxic appearance. [] HENT: Normocephalic, atraumatic, bilateral external ears normal, oropharynx moist, no oral exudates, nose normal. [] Eyes: PERRLA, EOMI, conjunctiva normal, no discharge. [] Neck: Normal range of motion, no tenderness, supple, no stridor. [] Cardiovascular: Chest is curved. Defibrillator noted on the left upper chest. Old healed surgical incision noted midline chest. Lungs & Thorax: Bilateral breath sounds clear to auscultation [] Abdomen: Flat abdomen. Bowel sounds normal, soft, slight tenderness on palpation of the right lower quadrant, negative psoas sign, negative obturator sign, no masses, no pulsatile masses. [] Skin: Warm, dry, no erythema, no rash. [] Back: No tenderness, no CVA tenderness. [] Extremities: No tenderness, no cyanosis, no clubbing, ROM intact, no edema. [] Neurologic: Alert and oriented X 3, normal motor function, normal sensory function, no focal deficits noted. [] Psychologic: Affect normal, judgement normal, mood normal. [] Current Patient Data Vital Signs Vital Signs Date Time Temp Pulse Resp B/P (MAP) Pulse Ox O2 Delivery O2 Flow Rate FiO2 03/27/19 13:51 56 20 155/81 (105) 99 Room Air 03/27/19 11:54 97.5 97.5 Lab Values Laboratory Tests Test 03/27/19 11:45 03/27/19 12:17 Urine Collection Type Unknown Urine Color Yellow Urine Clarity Cloudy Urine pH 7.5 Urine Specific [place] 1.025 Urine Protein 100 mg/dL (NEG-TRACE) Urine Glucose (UA) Negative mg/dL (NEG) Urine Ketones (Stick) Trace mg/dL (NEG) Urine Blood Negative (NEG) Urine Nitrite Negative (NEG) Urine Bilirubin Negative (NEG) Urine Urobilinogen Dipstick 1.0 mg/dL (0.2 mg/dL) Urine Leukocyte Esterase Negative (NEG) Urine RBC 0 /HPF (0-2) Urine WBC 0 /HPF (0-4) Urine Squamous Epithelial Cells Few /LPF Urine Bacteria 0 /HPF (0-FEW) White Blood Count 16.3 x10^3/uL (4.0-11.0) H Red Blood Count 5.00 x10^6/uL (4.30-5.70) Hemoglobin 15.4 g/dL (13.0-17.5) Hematocrit 45.1 % (39.0-53.0) Mean Corpuscular Volume 90 fL (79-100) Mean Corpuscular Hemoglobin 31 pg (25-35) Mean Corpuscular Hemoglobin Concent 34 g/dL (31-37) Red Cell Distribution Width 13.2 % (11.5-14.5) Platelet Count 314 x10^3/uL (140-400) Neutrophils (%) (Auto) 84 % (31-73) H Lymphocytes (%) (Auto) 8 % (24-48) L Monocytes (%) (Auto) 7 % (0-9) Eosinophils (%) (Auto) 0 % (0-3) Basophils (%) (Auto) 1 % (0-3) Neutrophils # (Auto) 13.7 x10^3uL (1.8-7.7) H Lymphocytes # (Auto) 1.3 x10^3/uL (1.0-4.8) Monocytes # (Auto) 1.2 x10^3/uL (0.0-1.1) H Eosinophils # (Auto) 0.0 x10^3/uL (0.0-0.7) Basophils # (Auto) 0.1 x10^3/uL (0.0-0.2) Segmented Neutrophils % 84 % (35-66) H Band Neutrophils % 1 % (0-9) Lymphocytes % 6 % (24-48) L Monocytes % 9 % (0-10) Platelet Estimate Adequate (ADEQUATE) Erythrocyte Sedimentation Rate 24 (0-15) H Sodium Level 137 mmol/L (136-145) Potassium Level 3.5 mmol/L (3.5-5.1) Chloride Level 99 mmol/L (98-107) Carbon Dioxide Level 25 mmol/L (21-32) Anion Gap 13 (6-14) Blood Urea Nitrogen 26 mg/dL (8-26) Creatinine 1.5 mg/dL (0.7-1.3) H Estimated GFR (Cockcroft-Gault) 48.4 BUN/Creatinine Ratio 17 (6-20) Glucose Level 144 mg/dL (70-99) H Calcium Level 9.3 mg/dL (8.5-10.1) Total Bilirubin 0.7 mg/dL (0.2-1.0) Aspartate Amino Transferase (AST) 125 U/L (15-37) H Alanine Aminotransferase (ALT) 90 U/L (16-63) H Alkaline Phosphatase 91 U/L (46-116) Total Protein 7.6 g/dL (6.4-8.2) Albumin 3.8 g/dL (3.4-5.0) Albumin/Globulin Ratio 1.0 (1.0-1.7) Lipase 1285 U/L (73-393) H Laboratory Tests 03/27/19 12:17 Laboratory Tests 03/27/19 12:17 EKG EKG [] Radiology/Procedures Radiology/Procedures []PROCEDURE: ABDOMEN COMPLETE ABDOMEN COMPLETE History: Elevated WBC and lipase, abdominal pain Comparison: None. Findings: Multiple sonographic images of the abdomen are submitted. There is no abnormality of the visualized pancreas. Gallbladder is present without intraluminal abnormality, wall thickening, pericholecystic fluid. Abdominal aortic caliber is within normal limits up to 1.7 cm proximally. There is segmental visualization of the inferior vena cava. Hepatic echotexture can be considered within normal limits. Right lobe of the liver measured 14.8 cm longitudinal. Common bile duct is within normal limits at about 0.4 cm. Right kidney measured 11.2 x 4.5 x 4.7 cm, no hydronephrosis. Spleen measured 10.6 cm. Left kidney measured 11.1 x 6.3 x 4.7 cm, no hydronephrosis. Impression: 1. No significant abnormality is demonstrated. Electronically signed by: Maile Montero MD (03/27/2019 2:35 PM) [id number] DICTATED and SIGNED BY: MAILE MONTERO MD DATE: 03/27/19 1435 Course & Med Decision Making Course & Med Decision Making Pertinent Labs and Imaging studies reviewed. (See chart for details) This is a 54-year-old male patient presenting to the ED today complaining of ongoing right lower quadrant abdominal pain with diarrhea and nausea that began yesterday. Patient was seen in the ED around 3 AM, had a CT of the abdomen and pelvic which was noted for colitis. He was discharged to home. He feels symptoms have gotten worse. On arrival to the ED temperature 97.5 heart rate 56 blood pressure 164/89. O2 sats 100% on room air. CBC with a WBC of 16.3, CMP with creatinine of 1.5, BUN is normal, AST 125 ALT 90. Lipase 1285 I attempted to order another CT of the abdomen and pelvic-radiologist feel this is too soon. Abdominal ultrasound was done which was negative. GI consult was placed IV fluids started. Dr. Farfan who accepted patient for admission Dragon Disclaimer Dragon Disclaimer This electronic medical record was generated, in whole or in part, using a voice recognition dictation system. Departure Departure Impression: Primary Impression: Pancreatitis Additional Impressions: Colitis Abdominal pain Disposition: ADMITTED INPATIENT Condition: STABLE Referrals: JERRELL POLLOCK MD (PCP) Problem Qualifiers Primary Impression: Pancreatitis Chronicity: acute Pancreatitis type: unspecified pancreatitis type Acute pancreatitis complication: unspecified Qualified Codes: K85.90 - Acute pancreatitis without necrosis or infection, unspecified Additional Impressions: Abdominal pain Abdominal location: unspecified location Qualified Codes: R10.9 - Unspecified abdominal pain ROSA RUTLEDGE APRN March 27, 2019 15:32
[2019-03-27 15:35] VITALS: BP 160/82
[2019-03-27] MEDS: ASPIRIN 325 MG TABLET PO SCH (15:42)
[2019-03-27] MEDS: METOPROLOL SUCC 24HR ER 25 MG TAB.ER.24H. PO SCH (15:59)
[2019-03-27] MEDS ORDERED: ONDANSETRON PF 4 MG/2 ML VIAL. IV PRN (16:00)
[2019-03-27] MEDS ORDERED: fentaNYL PF VIAL 100 MCG/2 ML VIAL IV PRN (16:00)
[2019-03-27] MEDS ORDERED: IV NORMAL SALINE 1000ML BAG 1,000 ML IV ONE (16:00)
--- NOTE | 2019-03-27 16:07 | PDOC2 ---
GI CONSULT Reason For Consult: Colitis HPI: HPI: 54 y/o male who presented to the ER twice and was admitted. Reports onset of crampy RLQ pain yesterday after eating a cheeseburger when he had previously followed a vegan diet for 6 months. Pain is constant, can be sharp, is worse with movement, and it feels like it wraps around to his lower spine. It was not worse after eating jello. Had a normal stool yesterday (and no stools yet today). Denies diarrhea or constipation. No hematochezia or melena. Might have some nausea but has not vomited. No h/o reflux/heartburn, dysphagia, or weight loss. Had a similar pain 4-5 years ago while laying flat on a table while getting a heart stent. No previous EGD or colonoscopy. No GB, liver, pancreas, or PUD history. No regular use of NSAIDs. Other notes mention h/o colitis - he denies to me. Some question of vasovagal episode - he says he felt "a little dizzy a couple times." Labs notable for WBC 16.3 (from 13.1, though seems to have h/o leukocytosis), Cr 1.5, bili 0.7, AST 125, ALT 90, Alk Phos 91, and lipase 1285. CT noted proximal colitis up to the level of splenic flexure. Abd US was unrevealing. PMH: PMH: CAD, HTN, HLD, [place], CVA cardiac stents, CABG FH: Family History: Cancer (father - stomach) Social History: Smoke: No ALCOHOL: rare Drugs: None ROS: GEN: Denies fevers, chills, sweats HEENT: Denies blurred vision, sore throat CV: Denies chest pain RESP: Denies shortness of air, cough GI: Per HPI : Denies hematuria, dysuria ENDO: Denies weight changes NEURO: +dizziness MSK: Denies weakness, joint pain/swelling SKIN: Denies jaundice, pruritus Vitals: Vitals: Vital Signs Date Time Temp Pulse Resp B/P (MAP) Pulse Ox O2 Delivery O2 Flow Rate FiO2 03/27/19 14:51 56 20 152/82 (105) 99 Room Air 03/27/19 11:54 97.5 97.5 Labs: Labs: Laboratory Tests Test 03/27/19 11:45 03/27/19 12:17 Urine Collection Type Unknown Urine Color Yellow Urine Clarity Cloudy Urine pH 7.5 Urine Specific [place] 1.025 Urine Protein 100 mg/dL (NEG-TRACE) Urine Glucose (UA) Negative mg/dL (NEG) Urine Ketones (Stick) Trace mg/dL (NEG) Urine Blood Negative (NEG) Urine Nitrite Negative (NEG) Urine Bilirubin Negative (NEG) Urine Urobilinogen Dipstick 1.0 mg/dL (0.2 mg/dL) Urine Leukocyte Esterase Negative (NEG) Urine RBC 0 /HPF (0-2) Urine WBC 0 /HPF (0-4) Urine Squamous Epithelial Cells Few /LPF Urine Bacteria 0 /HPF (0-FEW) White Blood Count 16.3 x10^3/uL (4.0-11.0) Red Blood Count 5.00 x10^6/uL (4.30-5.70) Hemoglobin 15.4 g/dL (13.0-17.5) Hematocrit 45.1 % (39.0-53.0) Mean Corpuscular Volume 90 fL (79-100) Mean Corpuscular Hemoglobin 31 pg (25-35) Mean Corpuscular Hemoglobin Concent 34 g/dL (31-37) Red Cell Distribution Width 13.2 % (11.5-14.5) Platelet Count 314 x10^3/uL (140-400) Neutrophils (%) (Auto) 84 % (31-73) Lymphocytes (%) (Auto) 8 % (24-48) Monocytes (%) (Auto) 7 % (0-9) Eosinophils (%) (Auto) 0 % (0-3) Basophils (%) (Auto) 1 % (0-3) Neutrophils # (Auto) 13.7 x10^3uL (1.8-7.7) Lymphocytes # (Auto) 1.3 x10^3/uL (1.0-4.8) Monocytes # (Auto) 1.2 x10^3/uL (0.0-1.1) Eosinophils # (Auto) 0.0 x10^3/uL (0.0-0.7) Basophils # (Auto) 0.1 x10^3/uL (0.0-0.2) Erythrocyte Sedimentation Rate 24 (0-15) Sodium Level 137 mmol/L (136-145) Potassium Level 3.5 mmol/L (3.5-5.1) Chloride Level 99 mmol/L (98-107) Carbon Dioxide Level 25 mmol/L (21-32) Anion Gap 13 (6-14) Blood Urea Nitrogen 26 mg/dL (8-26) Creatinine 1.5 mg/dL (0.7-1.3) Estimated GFR (Cockcroft-Gault) 48.4 BUN/Creatinine Ratio 17 (6-20) Glucose Level 144 mg/dL (70-99) Calcium Level 9.3 mg/dL (8.5-10.1) Total Bilirubin 0.7 mg/dL (0.2-1.0) Aspartate Amino Transf (AST/SGOT) 125 U/L (15-37) Alanine Aminotransferase (ALT/SGPT) 90 U/L (16-63) Alkaline Phosphatase 91 U/L (46-116) Total Protein 7.6 g/dL (6.4-8.2) Albumin 3.8 g/dL (3.4-5.0) Albumin/Globulin Ratio 1.0 (1.0-1.7) Lipase 1285 U/L (73-393) Allergies: Coded Allergies: No Known Medication Allergies (Verified Allergy, Unknown, 11/09/16) morphine (Verified Adverse Reaction, Intermediate, Nausea and Vomiting, 11/09/16) Medications: Current Medications Medications (Trade) Dose Ordered Sig/[facility]pe Route PRN Reason Start Time Stop Time Status Last Admin Dose Admin Fentanyl Citrate (Fentanyl 2ml Vial) 50 mcg 1X ONCE IV 03/27/19 12:45 03/27/19 12:46 DC 03/27/19 12:43 Ondansetron HCl (Zofran) 4 mg 1X ONCE IV 03/27/19 12:45 03/27/19 12:46 DC 03/27/19 12:41 Fentanyl Citrate (Fentanyl 2ml Vial) 50 mcg PRN Q2HR PRN IV PAIN 03/27/19 14:30 03/27/19 14:48 Ondansetron HCl (Zofran) 4 mg PRN Q6HRS PRN IV NAUSEA/VOMITING 03/27/19 14:30 03/27/19 14:46 Aspirin (Ardha Aspirin) 325 mg DAILY PO 03/27/19 15:00 03/27/19 15:42 Piperacillin Sod/ Tazobactam Sod 3.375 gm/Sodium Chloride 50 ml @ 100 mls/hr 1X ONCE IV 03/27/19 14:45 03/27/19 15:14 DC 03/27/19 15:42 Imaging: Imaging: Abd US Impression: 1. No significant abnormality is demonstrated. CT A/P w/o contrast IMPRESSION: Limited evaluation of solid abdominal and pelvic organs due to lack of IV contrast. Proximal colitis up to the level of splenic flexure. PE: GEN: NAD HEENT: Atraumatic, PERRL LUNGS: CTAB HEART: RRR ABD: quiet BS, soft, non-distended, mild RLQ discomfort EXTREMITY: No edema SKIN: No rashes, no jaundice NEURO/PSYCH: A & O 3 - seems a bit drowsy (?from Fentanyl) A/P: A/P: RLQ pain Leukocytosis, SILAS, elevated LFTs and lipase Abnormal CT - proximal "colitis" to splenic flexure CRC screen - none FH stomach cancer -- No diarrhea/bleeding to go along with "colitis" and pain is not typical for pancreatitis Reviewed w/ Dr. Crouch - NPO for now w/ elevated WBC. Monitor labs and observe. ZANE NARVAEZ March 27, 2019 16:07
[2019-03-27 17:09] LABS: % BANDS 1 % (0-9); % LYMPHS 6 % (24-48); % MONOS 9 % (0-10); % SEGS 84 % (35-66); PLT ESTIMATE ADEQUATE (ADEQUATE)
[2019-03-27] MEDS ORDERED: LISI2.5T PO (17:57)
[2019-03-27] MEDS ORDERED: RIVA20TA2 PO (17:57)
[2019-03-27] MEDS ORDERED: ASPI-630 PO (17:57)
[2019-03-27] MEDS ORDERED: CARV6.25 PO (17:57)
[2019-03-27 19:05] VITALS: BP 135/71
[2019-03-27] MEDS: PIPERACILLIN/TAZOBACTAM 3.375 GM in IV NORMAL SALINE 50ML 50 ML IV SCH (19:43)
[2019-03-27 23:41] VITALS: BP 124/73
[2019-03-28] MEDS: PIPERACILLIN/TAZOBACTAM 3.375 GM in IV NORMAL SALINE 50ML 50 ML IV SCH ×4 (00:24→17:52)
[2019-03-28 03:28] VITALS: BP 122/73
[2019-03-28] MEDS: fentaNYL PF VIAL 100 MCG/2 ML VIAL IV PRN (03:35)
[2019-03-28 05:59] LABS: BASO % 0 % (0-3); EOS % 0 % (0-3); HEMATOCRIT 43.1 % (39.0-53.0); HEMOGLOBIN 14.4 g/dL (13.0-17.5); LYMPH # 1.3 x10^3/uL (1.0-4.8); LYMPH % 8 % (24-48); MEAN CORPUSCULAR HEMOGLOBIN 31 pg (25-35); MEAN CORPUSCULAR HGB CONC 34 g/dL (31-37); MEAN CORPUSCULAR VOLUME 91 fL (79-100); MONO # 1.5 x10^3/uL (0.0-1.1); MONO % 10 % (0-9); NEUT # 12.6 x10^3uL (1.8-7.7); NEUT % 82 % (31-73); PLATELET COUNT 239 x10^3/uL (140-400); RED BLOOD COUNT 4.72 x10^6/uL (4.30-5.70); RED CELL DISTRIBUTION WIDTH 13.2 % (11.5-14.5); WHITE BLOOD COUNT 15.5 x10^3/uL (4.0-11.0)
[2019-03-28 06:07] LABS: ALBUMIN 3.2 g/dL (3.4-5.0); CALCIUM 8.9 mg/dL (8.5-10.1); CREATININE 1.2 mg/dL (0.7-1.3); DIRECT BILIRUBIN 0.3 mg/dL (0.0-0.2); GFR 62.6; POTASSIUM 4.2 mmol/L (3.5-5.1); TOTAL BILIRUBIN 1.1 mg/dL (0.2-1.0); TOTAL PROTEIN 6.7 g/dL (6.4-8.2)
[2019-03-28 07:30] VITALS: BP 110/65
[2019-03-28 11:30] VITALS: BP 117/71
--- NOTE | 2019-03-28 11:35 | PDOC ---
Subjective: Subjective: Pain is better today. Hasn't stooled, maybe passed gas earlier. Objective: Objective: Reviewed w/ RN - not asking for pain meds, wondering about eating. Vital Signs: Vital Signs Date Time Temp Pulse Resp B/P (MAP) Pulse Ox O2 Delivery O2 Flow Rate FiO2 03/28/19 08:00 Room Air 03/28/19 07:30 98.3 73 18 110/65 (80) 95 98.3 Labs: Laboratory Tests Test 03/27/19 11:45 03/27/19 12:17 03/28/19 04:30 Urine Collection Type Unknown Urine Color Yellow Urine Clarity Cloudy Urine pH 7.5 Urine Specific [place] 1.025 Urine Protein 100 mg/dL Urine Glucose (UA) Negative mg/dL Urine Ketones (Stick) Trace mg/dL Urine Blood Negative Urine Nitrite Negative Urine Bilirubin Negative Urine Urobilinogen Dipstick 1.0 mg/dL Urine Leukocyte Esterase Negative Urine RBC 0 /HPF Urine WBC 0 /HPF Urine Squamous Epithelial Cells Few /LPF Urine Bacteria 0 /HPF White Blood Count 16.3 x10^3/uL 15.5 x10^3/uL Red Blood Count 5.00 x10^6/uL 4.72 x10^6/uL Hemoglobin 15.4 g/dL 14.4 g/dL Hematocrit 45.1 % 43.1 % Mean Corpuscular Volume 90 fL 91 fL Mean Corpuscular Hemoglobin 31 pg 31 pg Mean Corpuscular Hemoglobin Concent 34 g/dL 34 g/dL Red Cell Distribution Width 13.2 % 13.2 % Platelet Count 314 x10^3/uL 239 x10^3/uL Neutrophils (%) (Auto) 84 % 82 % Lymphocytes (%) (Auto) 8 % 8 % Monocytes (%) (Auto) 7 % 10 % Eosinophils (%) (Auto) 0 % 0 % Basophils (%) (Auto) 1 % 0 % Neutrophils # (Auto) 13.7 x10^3uL 12.6 x10^3uL Lymphocytes # (Auto) 1.3 x10^3/uL 1.3 x10^3/uL Monocytes # (Auto) 1.2 x10^3/uL 1.5 x10^3/uL Eosinophils # (Auto) 0.0 x10^3/uL 0.0 x10^3/uL Basophils # (Auto) 0.1 x10^3/uL 0.0 x10^3/uL Segmented Neutrophils % 84 % Band Neutrophils % 1 % Lymphocytes % 6 % Monocytes % 9 % Platelet Estimate Adequate Erythrocyte Sedimentation Rate 24 Sodium Level 137 mmol/L 140 mmol/L Potassium Level 3.5 mmol/L 4.2 mmol/L Chloride Level 99 mmol/L 103 mmol/L Carbon Dioxide Level 25 mmol/L 27 mmol/L Anion Gap 13 10 Blood Urea Nitrogen 26 mg/dL 21 mg/dL Creatinine 1.5 mg/dL 1.2 mg/dL Estimated GFR (Cockcroft-Gault) 48.4 62.6 BUN/Creatinine Ratio 17 Glucose Level 144 mg/dL 101 mg/dL Calcium Level 9.3 mg/dL 8.9 mg/dL Total Bilirubin 0.7 mg/dL 1.1 mg/dL Aspartate Amino Transf (AST/SGOT) 125 U/L 286 U/L Alanine Aminotransferase (ALT/SGPT) 90 U/L 178 U/L Alkaline Phosphatase 91 U/L 76 U/L Total Protein 7.6 g/dL 6.7 g/dL Albumin 3.8 g/dL 3.2 g/dL Albumin/Globulin Ratio 1.0 Lipase 1285 U/L 253 U/L Direct Bilirubin 0.3 mg/dL PE: GEN: NAD LUNGS: CTAB HEART: RRR ABD: S/ND/NT NEURO/PSYCH: A & O 3 A/P: RLQ pain - improving, proximal colitis to SF on CT Leukocytosis - better Elevated LFTs - worse Elevated lipase - resolved -- ZANE NARVAEZ March 28, 2019 11:35
--- NOTE | 2019-03-28 12:05 | PDOC ---
[employer] PROGRESS NOTE Chief Complaint Chief Complaint Pancreatitis acute colitis, proximal colon, splenic flexure SIRS no sepsis POA no organ dysfunction Leukocytosis, tachycardia CABG 2017 Clean UA Lipase 1285-? Significance AK I VMN-he admitted to poor by mouth intake History of Present Illness History of Present Illness Patient seen and examined States his pain is getting better Labs reviewed Notes reviewed Vitals Vitals Vital Signs Date Time Temp Pulse Resp B/P (MAP) Pulse Ox O2 Delivery O2 Flow Rate FiO2 03/28/19 11:30 99.6 72 18 117/71 (86) 93 Room Air 99.6 Physical Exam General: Alert, Oriented X3, Cooperative, No acute distress Heart: Regular rate, Normal S1 Lungs: Clear Abdomen: Normal bowel sounds, Soft, No tenderness, No hepatosplenomegaly, No masses, Other (scaphoid abdomen, minimal tenderness on palpation) Extremities: No clubbing, No cyanosis, No edema, Normal pulses, No tenderness/swelling Skin: No rashes, No breakdown, No significant lesion Labs Labs: Laboratory Tests Test 03/27/19 12:17 03/28/19 04:30 White Blood Count 16.3 x10^3/uL (4.0-11.0) 15.5 x10^3/uL (4.0-11.0) Red Blood Count 5.00 x10^6/uL (4.30-5.70) 4.72 x10^6/uL (4.30-5.70) Hemoglobin 15.4 g/dL (13.0-17.5) 14.4 g/dL (13.0-17.5) Hematocrit 45.1 % (39.0-53.0) 43.1 % (39.0-53.0) Mean Corpuscular Volume 90 fL (79-100) 91 fL (79-100) Mean Corpuscular Hemoglobin 31 pg (25-35) 31 pg (25-35) Mean Corpuscular Hemoglobin Concent 34 g/dL (31-37) 34 g/dL (31-37) Red Cell Distribution Width 13.2 % (11.5-14.5) 13.2 % (11.5-14.5) Platelet Count 314 x10^3/uL (140-400) 239 x10^3/uL (140-400) Neutrophils (%) (Auto) 84 % (31-73) 82 % (31-73) Lymphocytes (%) (Auto) 8 % (24-48) 8 % (24-48) Monocytes (%) (Auto) 7 % (0-9) 10 % (0-9) Eosinophils (%) (Auto) 0 % (0-3) 0 % (0-3) Basophils (%) (Auto) 1 % (0-3) 0 % (0-3) Neutrophils # (Auto) 13.7 x10^3uL (1.8-7.7) 12.6 x10^3uL (1.8-7.7) Lymphocytes # (Auto) 1.3 x10^3/uL (1.0-4.8) 1.3 x10^3/uL (1.0-4.8) Monocytes # (Auto) 1.2 x10^3/uL (0.0-1.1) 1.5 x10^3/uL (0.0-1.1) Eosinophils # (Auto) 0.0 x10^3/uL (0.0-0.7) 0.0 x10^3/uL (0.0-0.7) Basophils # (Auto) 0.1 x10^3/uL (0.0-0.2) 0.0 x10^3/uL (0.0-0.2) Segmented Neutrophils % 84 % (35-66) Band Neutrophils % 1 % (0-9) Lymphocytes % 6 % (24-48) Monocytes % 9 % (0-10) Platelet Estimate Adequate (ADEQUATE) Erythrocyte Sedimentation Rate 24 (0-15) Sodium Level 137 mmol/L (136-145) 140 mmol/L (136-145) Potassium Level 3.5 mmol/L (3.5-5.1) 4.2 mmol/L (3.5-5.1) Chloride Level 99 mmol/L (98-107) 103 mmol/L (98-107) Carbon Dioxide Level 25 mmol/L (21-32) 27 mmol/L (21-32) Anion Gap 13 (6-14) 10 (6-14) Blood Urea Nitrogen 26 mg/dL (8-26) 21 mg/dL (8-26) Creatinine 1.5 mg/dL (0.7-1.3) 1.2 mg/dL (0.7-1.3) Estimated GFR (Cockcroft-Gault) 48.4 62.6 BUN/Creatinine Ratio 17 (6-20) Glucose Level 144 mg/dL (70-99) 101 mg/dL (70-99) Calcium Level 9.3 mg/dL (8.5-10.1) 8.9 mg/dL (8.5-10.1) Total Bilirubin 0.7 mg/dL (0.2-1.0) 1.1 mg/dL (0.2-1.0) Aspartate Amino Transf (AST/SGOT) 125 U/L (15-37) 286 U/L (15-37) Alanine Aminotransferase (ALT/SGPT) 90 U/L (16-63) 178 U/L (16-63) Alkaline Phosphatase 91 U/L (46-116) 76 U/L (46-116) Total Protein 7.6 g/dL (6.4-8.2) 6.7 g/dL (6.4-8.2) Albumin 3.8 g/dL (3.4-5.0) 3.2 g/dL (3.4-5.0) Albumin/Globulin Ratio 1.0 (1.0-1.7) Lipase 1285 U/L (73-393) 253 U/L (73-393) Direct Bilirubin 0.3 mg/dL (0.0-0.2) Review of Systems Review of Systems [place] of abdominal pain but it's improving complains of weakness Assessment and Plan Assessmemt and Plan Problems Medical Problems: (1) Abdominal pain Status: Acute (2) Colitis Status: Acute (3) Pancreatitis Status: Acute Pancreatitis acute colitis, proximal colon, splenic flexure SIRS no sepsis POA no organ dysfunction Leukocytosis, tachycardia CABG 2017 Clean UA Lipase 1285-? Significance AK I VMN-he admitted to poor by mouth intake Plan IV pain meds IV hydration When necessary Zofran Home meds DVT prophylaxis Full code Await further subspecialist input The antibiotics Comment Review of Relevant I have reviewed the following items kojo (where applicable) has been applied. Labs Laboratory Tests Test 03/27/19 11:45 03/27/19 12:17 03/28/19 04:30 Urine Collection Type Unknown Urine Color Yellow Urine Clarity Cloudy Urine pH 7.5 Urine Specific [place] 1.025 Urine Protein 100 mg/dL (NEG-TRACE) Urine Glucose (UA) Negative mg/dL (NEG) Urine Ketones (Stick) Trace mg/dL (NEG) Urine Blood Negative (NEG) Urine Nitrite Negative (NEG) Urine Bilirubin Negative (NEG) Urine Urobilinogen Dipstick 1.0 mg/dL (0.2 mg/dL) Urine Leukocyte Esterase Negative (NEG) Urine RBC 0 /HPF (0-2) Urine WBC 0 /HPF (0-4) Urine Squamous Epithelial Cells Few /LPF Urine Bacteria 0 /HPF (0-FEW) White Blood Count 16.3 x10^3/uL (4.0-11.0) 15.5 x10^3/uL (4.0-11.0) Red Blood Count 5.00 x10^6/uL (4.30-5.70) 4.72 x10^6/uL (4.30-5.70) Hemoglobin 15.4 g/dL (13.0-17.5) 14.4 g/dL (13.0-17.5) Hematocrit 45.1 % (39.0-53.0) 43.1 % (39.0-53.0) Mean Corpuscular Volume 90 fL (79-100) 91 fL (79-100) Mean Corpuscular Hemoglobin 31 pg (25-35) 31 pg (25-35) Mean Corpuscular Hemoglobin Concent 34 g/dL (31-37) 34 g/dL (31-37) Red Cell Distribution Width 13.2 % (11.5-14.5) 13.2 % (11.5-14.5) Platelet Count 314 x10^3/uL (140-400) 239 x10^3/uL (140-400) Neutrophils (%) (Auto) 84 % (31-73) 82 % (31-73) Lymphocytes (%) (Auto) 8 % (24-48) 8 % (24-48) Monocytes (%) (Auto) 7 % (0-9) 10 % (0-9) Eosinophils (%) (Auto) 0 % (0-3) 0 % (0-3) Basophils (%) (Auto) 1 % (0-3) 0 % (0-3) Neutrophils # (Auto) 13.7 x10^3uL (1.8-7.7) 12.6 x10^3uL (1.8-7.7) Lymphocytes # (Auto) 1.3 x10^3/uL (1.0-4.8) 1.3 x10^3/uL (1.0-4.8) Monocytes # (Auto) 1.2 x10^3/uL (0.0-1.1) 1.5 x10^3/uL (0.0-1.1) Eosinophils # (Auto) 0.0 x10^3/uL (0.0-0.7) 0.0 x10^3/uL (0.0-0.7) Basophils # (Auto) 0.1 x10^3/uL (0.0-0.2) 0.0 x10^3/uL (0.0-0.2) Segmented Neutrophils % 84 % (35-66) Band Neutrophils % 1 % (0-9) Lymphocytes % 6 % (24-48) Monocytes % 9 % (0-10) Platelet Estimate Adequate (ADEQUATE) Erythrocyte Sedimentation Rate 24 (0-15) Sodium Level 137 mmol/L (136-145) 140 mmol/L (136-145) Potassium Level 3.5 mmol/L (3.5-5.1) 4.2 mmol/L (3.5-5.1) Chloride Level 99 mmol/L (98-107) 103 mmol/L (98-107) Carbon Dioxide Level 25 mmol/L (21-32) 27 mmol/L (21-32) Anion Gap 13 (6-14) 10 (6-14) Blood Urea Nitrogen 26 mg/dL (8-26) 21 mg/dL (8-26) Creatinine 1.5 mg/dL (0.7-1.3) 1.2 mg/dL (0.7-1.3) Estimated GFR (Cockcroft-Gault) 48.4 62.6 BUN/Creatinine Ratio 17 (6-20) Glucose Level 144 mg/dL (70-99) 101 mg/dL (70-99) Calcium Level 9.3 mg/dL (8.5-10.1) 8.9 mg/dL (8.5-10.1) Total Bilirubin 0.7 mg/dL (0.2-1.0) 1.1 mg/dL (0.2-1.0) Aspartate Amino Transf (AST/SGOT) 125 U/L (15-37) 286 U/L (15-37) Alanine Aminotransferase (ALT/SGPT) 90 U/L (16-63) 178 U/L (16-63) Alkaline Phosphatase 91 U/L (46-116) 76 U/L (46-116) Total Protein 7.6 g/dL (6.4-8.2) 6.7 g/dL (6.4-8.2) Albumin 3.8 g/dL (3.4-5.0) 3.2 g/dL (3.4-5.0) Albumin/Globulin Ratio 1.0 (1.0-1.7) Lipase 1285 U/L (73-393) 253 U/L (73-393) Direct Bilirubin 0.3 mg/dL (0.0-0.2) Laboratory Tests Test 03/27/19 12:17 03/28/19 04:30 White Blood Count 16.3 x10^3/uL (4.0-11.0) 15.5 x10^3/uL (4.0-11.0) Red Blood Count 5.00 x10^6/uL (4.30-5.70) 4.72 x10^6/uL (4.30-5.70) Hemoglobin 15.4 g/dL (13.0-17.5) 14.4 g/dL (13.0-17.5) Hematocrit 45.1 % (39.0-53.0) 43.1 % (39.0-53.0) Mean Corpuscular Volume 90 fL (79-100) 91 fL (79-100) Mean Corpuscular Hemoglobin 31 pg (25-35) 31 pg (25-35) Mean Corpuscular Hemoglobin Concent 34 g/dL (31-37) 34 g/dL (31-37) Red Cell Distribution Width 13.2 % (11.5-14.5) 13.2 % (11.5-14.5) Platelet Count 314 x10^3/uL (140-400) 239 x10^3/uL (140-400) Neutrophils (%) (Auto) 84 % (31-73) 82 % (31-73) Lymphocytes (%) (Auto) 8 % (24-48) 8 % (24-48) Monocytes (%) (Auto) 7 % (0-9) 10 % (0-9) Eosinophils (%) (Auto) 0 % (0-3) 0 % (0-3) Basophils (%) (Auto) 1 % (0-3) 0 % (0-3) Neutrophils # (Auto) 13.7 x10^3uL (1.8-7.7) 12.6 x10^3uL (1.8-7.7) Lymphocytes # (Auto) 1.3 x10^3/uL (1.0-4.8) 1.3 x10^3/uL (1.0-4.8) Monocytes # (Auto) 1.2 x10^3/uL (0.0-1.1) 1.5 x10^3/uL (0.0-1.1) Eosinophils # (Auto) 0.0 x10^3/uL (0.0-0.7) 0.0 x10^3/uL (0.0-0.7) Basophils # (Auto) 0.1 x10^3/uL (0.0-0.2) 0.0 x10^3/uL (0.0-0.2) Segmented Neutrophils % 84 % (35-66) Band Neutrophils % 1 % (0-9) Lymphocytes % 6 % (24-48) Monocytes % 9 % (0-10) Platelet Estimate Adequate (ADEQUATE) Erythrocyte Sedimentation Rate 24 (0-15) Sodium Level 137 mmol/L (136-145) 140 mmol/L (136-145) Potassium Level 3.5 mmol/L (3.5-5.1) 4.2 mmol/L (3.5-5.1) Chloride Level 99 mmol/L (98-107) 103 mmol/L (98-107) Carbon Dioxide Level 25 mmol/L (21-32) 27 mmol/L (21-32) Anion Gap 13 (6-14) 10 (6-14) Blood Urea Nitrogen 26 mg/dL (8-26) 21 mg/dL (8-26) Creatinine 1.5 mg/dL (0.7-1.3) 1.2 mg/dL (0.7-1.3) Estimated GFR (Cockcroft-Gault) 48.4 62.6 BUN/Creatinine Ratio 17 (6-20) Glucose Level 144 mg/dL (70-99) 101 mg/dL (70-99) Calcium Level 9.3 mg/dL (8.5-10.1) 8.9 mg/dL (8.5-10.1) Total Bilirubin 0.7 mg/dL (0.2-1.0) 1.1 mg/dL (0.2-1.0) Aspartate Amino Transf (AST/SGOT) 125 U/L (15-37) 286 U/L (15-37) Alanine Aminotransferase (ALT/SGPT) 90 U/L (16-63) 178 U/L (16-63) Alkaline Phosphatase 91 U/L (46-116) 76 U/L (46-116) Total Protein 7.6 g/dL (6.4-8.2) 6.7 g/dL (6.4-8.2) Albumin 3.8 g/dL (3.4-5.0) 3.2 g/dL (3.4-5.0) Albumin/Globulin Ratio 1.0 (1.0-1.7) Lipase 1285 U/L (73-393) 253 U/L (73-393) Direct Bilirubin 0.3 mg/dL (0.0-0.2) Medications Current Medications Fentanyl Citrate (Fentanyl 2ml Vial) 50 mcg 1X ONCE IV Last administered on 03/27/19at 12:43; Start 03/27/19 at 12:45; Stop 03/27/19 at 12:46; Status DC Ondansetron HCl (Zofran) 4 mg 1X ONCE IV Last administered on 03/27/19at 12:41; Start 03/27/19 at 12:45; Stop 03/27/19 at 12:46; Status DC Fentanyl Citrate (Fentanyl 2ml Vial) 50 mcg PRN Q2HR PRN IV PAIN Last administered on 03/28/19at 03:35; Start 03/27/19 at 14:30 Ondansetron HCl (Zofran) 4 mg PRN Q6HRS PRN IV NAUSEA/VOMITING Last administered on 03/27/19at 21:41; Start 03/27/19 at 14:30 Acetaminophen (Tylenol) 500 mg PRN Q6HRS PRN PO MILD PAIN / TEMP; Start 03/27/19 at 14:30 Acetaminophen/ Hydrocodone Bitart (Lortab 5/325) 1 tab PRN Q4HRS PRN PO MODERATE PAIN; Start 03/27/19 at 14:30 Zolpidem Tartrate (Ambien) 5 mg PRN QHS PRN PO INSOMNIA; Start 03/27/19 at 14:30 Aspirin (Radha Aspirin) 325 mg DAILY PO Last administered on 03/27/19at 15:42; Start 03/27/19 at 15:00 Atorvastatin Calcium (Lipitor) 40 mg QHS PO ; Start 03/28/19 at 21:00 Metoprolol Succinate (Toprol Xl) 25 mg DAILY PO Last administered on 03/27/19at 15:59; Start 03/27/19 at 15:00 Tramadol HCl (Ultram) 50 mg PRN Q6HRS PRN PO INCISIONAL PAIN; Start 03/27/19 at 14:30 Ondansetron HCl (Zofran Odt) 4 mg PRN Q6HRS PRN PO NAUSEA/VOMITING; Start 03/27/19 at 14:45 Piperacillin Sod/ Tazobactam Sod (Zosyn Per Pharmacy) 1 each PRN DAILY PRN [facility] SEE COMMENTS; Start 03/27/19 at 14:30 Piperacillin Sod/ Tazobactam Sod 3.375 gm/Sodium Chloride 50 ml @ 100 mls/hr 1X ONCE IV Last administered on 03/27/19at 15:42; Start 03/27/19 at 14:45; Stop 03/27/19 at 15:14; Status DC Piperacillin Sod/ Tazobactam Sod 3.375 gm/Sodium Chloride 50 ml @ 100 mls/hr Q6HRS IV Last administered on 03/28/19at 06:20; Start 03/27/19 at 19:00 Ondansetron HCl (Zofran) 4 mg PRN Q8HRS PRN IV NAUSEA/VOMITING; Start 03/27/19 at 16:00; Stop 03/28/19 at 15:59 Fentanyl Citrate (Fentanyl 2ml Vial) 50 mcg PRN Q1HR PRN IV PAIN; Start 03/27/19 at 16:00; Stop 03/28/19 at 15:59 Sodium Chloride 1,000 ml @ 125 mls/hr 1X ONCE IV Last administered on 03/27/19at 17:29; Start 03/27/19 at 16:00; Stop 03/27/19 at 23:59; Status DC Active Scripts Active Zofran (Ondansetron Hcl) 4 Mg Tablet 1 Tab PO PRN Q6-8HRS Tramadol Hcl 50 Mg Tablet 50 Mg PO PRN Q6HRS PRN SIG: ONE OR TWO TABS EVERY 6 - 8 HOURS NEEDED FOR PAIN Reported Xarelto (Rivaroxaban) 20 Mg Tablet 20 Mg PO DAILY Coreg (Carvedilol) 6.25 Mg Tablet 6.25 Mg PO BIDWMEALS Lisinopril 2.5 Mg Tablet 1 Tab PO DAILY Aspirin 81 Mg Tab.chew 1 Tab PO DAILY Lipitor (Atorvastatin Calcium) 40 Mg Tablet 40 Mg PO DAILY Vitals/I & O Vital Sign - Last 24 Hours 03/27/19 03/27/19 03/27/19 03/27/19 12:21 12:51 13:21 13:51 Pulse 56 58 56 Resp 18 18 20 B/P (MAP) 154/92 (112) 148/89 (108) 159/77 (104) 155/81 (105) Pulse Ox 99 99 99 O2 Delivery Room Air Room Air Room Air 03/27/19 03/27/19 03/27/19 03/27/19 14:42 14:51 15:22 15:35 Temp 98.9 98.9 Pulse 56 68 Resp 20 16 B/P (MAP) 164/82 (109) 152/82 (105) 160/82 (108) Pulse Ox 99 98 O2 Delivery Room Air Room Air Room Air 03/27/19 03/27/19 03/27/19 03/27/19 15:59 17:46 19:05 20:10 Temp 98.1 98.1 Pulse 68 66 Resp 16 B/P (MAP) 160/82 135/71 (92) Pulse Ox 98 96 O2 Delivery Room Air Room Air Room Air 03/27/19 03/27/19 03/28/19 03/28/19 21:41 23:41 03:28 03:35 Temp 98.1 97.9 98.1 97.9 Pulse 71 65 Resp 16 16 16 18 B/P (MAP) 124/73 (90) 122/73 (89) Pulse Ox 96 95 98 98 O2 Delivery Room Air Room Air Room Air Room Air 03/28/19 03/28/19 03/28/19 03/28/19 04:05 07:30 08:00 11:30 Temp 98.3 99.6 98.3 99.6 Pulse 73 72 Resp 16 18 18 B/P (MAP) 110/65 (80) 117/71 (86) Pulse Ox 98 95 93 O2 Delivery Room Air Room Air Room Air Room Air KATHERYN ROMERO III DO March 28, 2019 12:05
[2019-03-28] MEDS ORDERED: ANTI-COAG MONITOR BY PHARMACY. MC PRN (12:15)
--- NOTE | 2019-03-28 14:20 | NUR ---
SW following for discharge planning. Discussed with RN, pt is from home with family. GI following pt and no dc recommendations/SW needs noted at this time.
[2019-03-28 15:00] VITALS: BP 105/63
--- NOTE | 2019-03-28 15:10 | NUR ---
Report from KIMBER Harry, this nurse taking over for care of this pt
[2019-03-28] MEDS: ASPIRIN 325 MG TABLET PO SCH (15:24)
[2019-03-28] MEDS: METOPROLOL SUCC 24HR ER 25 MG TAB.ER.24H. PO SCH (15:25)
[2019-03-28] MEDS: RIVAROXABAN 10 MG TABLET. PO SCH (16:34)
[2019-03-28] MEDS: LISINOPRIL 5 MG TABLET. PO SCH (16:35)
[2019-03-28] MEDS: CARVEDILOL 6.25 MG TABLET. PO SCH (16:35)
[2019-03-28 19:10] VITALS: BP 103/55
[2019-03-28] MEDS: ATORVASTATIN CALCIUM 40 MG TABLET. PO SCH (21:02)
[2019-03-28 23:38] VITALS: BP 102/47
[2019-03-29 03:10] VITALS: BP 111/63
[2019-03-29] MEDS: PIPERACILLIN/TAZOBACTAM 3.375 GM in IV NORMAL SALINE 50ML 50 ML IV SCH ×5 (06:00→17:28)
[2019-03-29 07:00] VITALS: BP 93/57
[2019-03-29] MEDS: CARVEDILOL 6.25 MG TABLET. PO SCH ×2 (08:00→17:00)
[2019-03-29] MEDS: ASPIRIN CHEWABLE 81 MG TABLET. PO SCH (08:13)
[2019-03-29] MEDS: LISINOPRIL 5 MG TABLET. PO SCH (08:13)
--- NOTE | 2019-03-29 10:00 | PDOC ---
[employer] PROGRESS NOTE Chief Complaint Chief Complaint Pancreatitis acute colitis, proximal colon, splenic flexure SIRS no sepsis POA no organ dysfunction Leukocytosis, tachycardia CABG 2017 Clean UA Lipase 1285-? Significance AK I VMN-he admitted to poor by mouth intake History of Present Illness History of Present Illness Patient seen and examined States his pain is getting better Labs reviewed Notes reviewed Vitals Vitals Vital Signs Date Time Temp Pulse Resp B/P (MAP) Pulse Ox O2 Delivery O2 Flow Rate FiO2 03/29/19 08:13 84 93/57 03/29/19 07:00 98.0 18 97 Room Air 98.0 Physical Exam General: Alert, Oriented X3, Cooperative, No acute distress Heart: Regular rate, Normal S1 Lungs: Clear Abdomen: Normal bowel sounds, Soft, No tenderness, No hepatosplenomegaly, No masses, Other (scaphoid abdomen, minimal tenderness on palpation) Extremities: No clubbing, No cyanosis, No edema, Normal pulses, No tenderness/swelling Skin: No rashes, No breakdown, No significant lesion Review of Systems Review of Systems Much less abdominal pain tolerating his diet Assessment and Plan Assessmemt and Plan Problems Medical Problems: (1) Abdominal pain Status: Acute (2) Colitis Status: Acute (3) Pancreatitis Status: Plan Advance diet When necessary Zofran When necessary narcotics Discharge when okay with GI Comment Review of Relevant I have reviewed the following items kojo (where applicable) has been applied. Labs Laboratory Tests Test 03/27/19 11:45 03/27/19 12:17 03/28/19 04:30 Urine Collection Type Unknown Urine Color Yellow Urine Clarity Cloudy Urine pH 7.5 Urine Specific [place] 1.025 Urine Protein 100 mg/dL (NEG-TRACE) Urine Glucose (UA) Negative mg/dL (NEG) Urine Ketones (Stick) Trace mg/dL (NEG) Urine Blood Negative (NEG) Urine Nitrite Negative (NEG) Urine Bilirubin Negative (NEG) Urine Urobilinogen Dipstick 1.0 mg/dL (0.2 mg/dL) Urine Leukocyte Esterase Negative (NEG) Urine RBC 0 /HPF (0-2) Urine WBC 0 /HPF (0-4) Urine Squamous Epithelial Cells Few /LPF Urine Bacteria 0 /HPF (0-FEW) White Blood Count 16.3 x10^3/uL (4.0-11.0) 15.5 x10^3/uL (4.0-11.0) Red Blood Count 5.00 x10^6/uL (4.30-5.70) 4.72 x10^6/uL (4.30-5.70) Hemoglobin 15.4 g/dL (13.0-17.5) 14.4 g/dL (13.0-17.5) Hematocrit 45.1 % (39.0-53.0) 43.1 % (39.0-53.0) Mean Corpuscular Volume 90 fL (79-100) 91 fL (79-100) Mean Corpuscular Hemoglobin 31 pg (25-35) 31 pg (25-35) Mean Corpuscular Hemoglobin Concent 34 g/dL (31-37) 34 g/dL (31-37) Red Cell Distribution Width 13.2 % (11.5-14.5) 13.2 % (11.5-14.5) Platelet Count 314 x10^3/uL (140-400) 239 x10^3/uL (140-400) Neutrophils (%) (Auto) 84 % (31-73) 82 % (31-73) Lymphocytes (%) (Auto) 8 % (24-48) 8 % (24-48) Monocytes (%) (Auto) 7 % (0-9) 10 % (0-9) Eosinophils (%) (Auto) 0 % (0-3) 0 % (0-3) Basophils (%) (Auto) 1 % (0-3) 0 % (0-3) Neutrophils # (Auto) 13.7 x10^3uL (1.8-7.7) 12.6 x10^3uL (1.8-7.7) Lymphocytes # (Auto) 1.3 x10^3/uL (1.0-4.8) 1.3 x10^3/uL (1.0-4.8) Monocytes # (Auto) 1.2 x10^3/uL (0.0-1.1) 1.5 x10^3/uL (0.0-1.1) Eosinophils # (Auto) 0.0 x10^3/uL (0.0-0.7) 0.0 x10^3/uL (0.0-0.7) Basophils # (Auto) 0.1 x10^3/uL (0.0-0.2) 0.0 x10^3/uL (0.0-0.2) Segmented Neutrophils % 84 % (35-66) Band Neutrophils % 1 % (0-9) Lymphocytes % 6 % (24-48) Monocytes % 9 % (0-10) Platelet Estimate Adequate (ADEQUATE) Erythrocyte Sedimentation Rate 24 (0-15) Sodium Level 137 mmol/L (136-145) 140 mmol/L (136-145) Potassium Level 3.5 mmol/L (3.5-5.1) 4.2 mmol/L (3.5-5.1) Chloride Level 99 mmol/L (98-107) 103 mmol/L (98-107) Carbon Dioxide Level 25 mmol/L (21-32) 27 mmol/L (21-32) Anion Gap 13 (6-14) 10 (6-14) Blood Urea Nitrogen 26 mg/dL (8-26) 21 mg/dL (8-26) Creatinine 1.5 mg/dL (0.7-1.3) 1.2 mg/dL (0.7-1.3) Estimated GFR (Cockcroft-Gault) 48.4 62.6 BUN/Creatinine Ratio 17 (6-20) Glucose Level 144 mg/dL (70-99) 101 mg/dL (70-99) Calcium Level 9.3 mg/dL (8.5-10.1) 8.9 mg/dL (8.5-10.1) Total Bilirubin 0.7 mg/dL (0.2-1.0) 1.1 mg/dL (0.2-1.0) Aspartate Amino Transf (AST/SGOT) 125 U/L (15-37) 286 U/L (15-37) Alanine Aminotransferase (ALT/SGPT) 90 U/L (16-63) 178 U/L (16-63) Alkaline Phosphatase 91 U/L (46-116) 76 U/L (46-116) Total Protein 7.6 g/dL (6.4-8.2) 6.7 g/dL (6.4-8.2) Albumin 3.8 g/dL (3.4-5.0) 3.2 g/dL (3.4-5.0) Albumin/Globulin Ratio 1.0 (1.0-1.7) Lipase 1285 U/L (73-393) 253 U/L (73-393) Direct Bilirubin 0.3 mg/dL (0.0-0.2) Hepatitis A IgM Antibody Nonreactive (Nonreactive) Hepatitis B Surface Antigen Nonreactive (Nonreactive) Hepatitis B Core IgM Antibody Nonreactive (Nonreactive) Hepatitis C IgG Antibody Nonreactive (Nonreactive) Medications Current Medications Fentanyl Citrate (Fentanyl 2ml Vial) 50 mcg 1X ONCE IV Last administered on 03/27/19 12:43; Start 03/27/19 at 12:45; Stop 03/27/19 at 12:46; Status DC Ondansetron HCl (Zofran) 4 mg 1X ONCE IV Last administered on 03/27/19 12:41; Start 03/27/19 at 12:45; Stop 03/27/19 at 12:46; Status DC Fentanyl Citrate (Fentanyl 2ml Vial) 50 mcg PRN Q2HR PRN IV PAIN Last administered on 03/28/19 03:35; Start 03/27/19 at 14:30 Ondansetron HCl (Zofran) 4 mg PRN Q6HRS PRN IV NAUSEA/VOMITING Last administered on 03/27/19 21:41; Start 03/27/19 at 14:30 Acetaminophen (Tylenol) 500 mg PRN Q6HRS PRN PO MILD PAIN / TEMP Last administered on 03/28/19 23:45; Start 03/27/19 at 14:30 Acetaminophen/ Hydrocodone Bitart (Lortab 5/325) 1 tab PRN Q4HRS PRN PO MODERATE PAIN; Start 03/27/19 at 14:30 Zolpidem Tartrate (Ambien) 5 mg PRN QHS PRN PO INSOMNIA; Start 03/27/19 at 14:30 Aspirin (Radha Aspirin) 325 mg DAILY PO Last administered on 03/27/19 15:42; Start 03/27/19 at 15:00; Stop 03/28/19 at 12:04; Status DC Atorvastatin Calcium (Lipitor) 40 mg QHS PO Last administered on 03/28/19 21:02; Start 03/28/19 at 21:00 Metoprolol Succinate (Toprol Xl) 25 mg DAILY PO Last administered on 5/29/19at 15:59; Start 03/27/19 at 15:00; Stop 03/28/19 at 12:04; Status DC Tramadol HCl (Ultram) 50 mg PRN Q6HRS PRN PO INCISIONAL PAIN; Start 03/27/19 at 14:30 Ondansetron HCl (Zofran Odt) 4 mg PRN Q6HRS PRN PO NAUSEA/VOMITING; Start 03/27/19 at 14:45 Piperacillin Sod/ Tazobactam Sod (Zosyn Per Pharmacy) 1 each PRN DAILY PRN MC SEE COMMENTS; Start 03/27/19 at 14:30 Piperacillin Sod/ Tazobactam Sod 3.375 gm/Sodium Chloride 50 ml @ 100 mls/hr 1X ONCE IV Last administered on 03/27/19at 15:42; Start 03/27/19 at 14:45; Stop 03/27/19 at 15:14; Status DC Piperacillin Sod/ Tazobactam Sod 3.375 gm/Sodium Chloride 50 ml @ 100 mls/hr Q6HRS IV Last administered on 03/29/19at 06:00; Start 03/27/19 at 19:00 Ondansetron HCl (Zofran) 4 mg PRN Q8HRS PRN IV NAUSEA/VOMITING; Start 03/27/19 at 16:00; Stop 03/28/19 at 15:59; Status DC Fentanyl Citrate (Fentanyl 2ml Vial) 50 mcg PRN Q1HR PRN IV PAIN; Start 03/27/19 at 16:00; Stop 03/28/19 at 15:59; Status DC Sodium Chloride 1,000 ml @ 125 mls/hr 1X ONCE IV Last administered on 03/27/19at 17:29; Start 03/27/19 at 16:00; Stop 03/27/19 at 23:59; Status DC Aspirin (Children'S Aspirin) 81 mg DAILY PO Last administered on 03/29/19at 08:13; Start 03/29/19 at 09:00 Carvedilol (Coreg) 6.25 mg BIDWMEALS PO Last administered on 03/28/19at 16:35; Start 03/28/19 at 17:00 Lisinopril (Prinivil) 2.5 mg DAILY PO ; Start 03/28/19 at 13:00 Rivaroxaban (Xarelto) 20 mg DAILYWSUP PO Last administered on 03/28/19at 16:34; Start 03/28/19 at 17:00 Info (Anti-Coagulation Monitoring By Pharmacy) 1 each PRN DAILY PRN MC SEE COMMENTS; Start 03/28/19 at 12:15 Active Scripts Active Zofran (Ondansetron Hcl) 4 Mg Tablet 1 Tab PO PRN Q6-8HRS Tramadol Hcl 50 Mg Tablet 50 Mg PO PRN Q6HRS PRN SIG: ONE OR TWO TABS EVERY 6 - 8 HOURS NEEDED FOR PAIN Reported Xarelto (Rivaroxaban) 20 Mg Tablet 20 Mg PO DAILY Coreg (Carvedilol) 6.25 Mg Tablet 6.25 Mg PO BIDWMEALS Lisinopril 2.5 Mg Tablet 1 Tab PO DAILY Aspirin 81 Mg Tab.chew 1 Tab PO DAILY Lipitor (Atorvastatin Calcium) 40 Mg Tablet 40 Mg PO DAILY Vitals/I & O Vital Sign - Last 24 Hours 03/28/19 03/28/19 03/28/19 03/28/19 11:30 15:00 16:35 19:10 Temp 99.6 97.6 99.3 99.6 97.6 99.3 Pulse 72 74 70 82 Resp 18 18 18 B/P (MAP) 117/71 (86) 105/63 (77) 117/60 103/55 (71) Pulse Ox 93 98 97 O2 Delivery Room Air Room Air Room Air 03/28/19 03/28/19 03/29/19 03/29/19 20:00 23:38 03:10 07:00 Temp 101.1 99.1 98.0 101.1 99.1 98.0 Pulse 76 69 84 Resp 18 18 18 B/P (MAP) 102/47 (65) 111/63 (79) 93/57 (69) Pulse Ox 97 97 97 O2 Delivery Room Air Room Air Room Air Room Air 03/29/19 03/29/19 08:00 08:13 Pulse 84 84 B/P (MAP) 93/57 93/57 Intake and Output 03/28/19 03/28/19 03/29/19 15:00 23:00 07:00 Intake Total 200 ml 350 ml 300 ml Balance 200 ml 350 ml 300 ml CASTLE,NIAL K III DO March 29, 2019 10:00
[2019-03-29 11:02] VITALS: BP 114/72
--- NOTE | 2019-03-29 13:04 | PDOC ---
Subjective: Subjective: Maybe a little RLQ discomfort - rates 1/10. Tolerating liquids. Hasn't stooled. Objective: Objective: Orders to [facility] yesterday, not done. Vital Signs: Vital Signs Date Time Temp Pulse Resp B/P (MAP) Pulse Ox O2 Delivery O2 Flow Rate FiO2 03/29/19 11:02 99.0 74 18 114/72 (86) 95 Room Air 99.0 Labs: Hep panel neg. PE: GEN: NAD - was asleep LUNGS: CTAB HEART: RRR ABD: NABS, S/ND, not particularly tender NEURO/PSYCH: A & O 3 A/P: RLQ pain - improving Leukocytosis, elevated LFTs -- Advance diet. No labs today - will recheck. ZANE NARVAEZ March 29, 2019 13:04
[2019-03-29 15:00] VITALS: BP 104/62
[2019-03-29 17:27] LABS: HEMATOCRIT 43.2 % (39.0-53.0); HEMOGLOBIN 14.6 g/dL (13.0-17.5); RED BLOOD COUNT 4.74 x10^6/uL (4.30-5.70); RED CELL DISTRIBUTION WIDTH 12.9 % (11.5-14.5); WHITE BLOOD COUNT 17.6 x10^3/uL (4.0-11.0)
[2019-03-29] MEDS: RIVAROXABAN 10 MG TABLET. PO SCH (17:28)
[2019-03-29 17:39] LABS: ALBUMIN 3.1 g/dL (3.4-5.0); ALBUMIN/GLOBULIN RATIO 0.7 (1.0-1.7); CALCIUM 9.3 mg/dL (8.5-10.1); CREATININE 1.3 mg/dL (0.7-1.3); GFR 57.1; POTASSIUM 3.6 mmol/L (3.5-5.1); TOTAL BILIRUBIN 1.2 mg/dL (0.2-1.0); TOTAL PROTEIN 7.6 g/dL (6.4-8.2)
[2019-03-29 19:30] VITALS: BP 106/64
[2019-03-29] MEDS: ATORVASTATIN CALCIUM 40 MG TABLET. PO SCH (21:00)
[2019-03-29] MEDS: LACTOBACILLUS RHAMNOSUS GG 1 CAPSULE. PO SCH (21:00)
[2019-03-29 23:39] VITALS: BP 133/74
[2019-03-30] MEDS: PIPERACILLIN/TAZOBACTAM 3.375 GM in IV NORMAL SALINE 50ML 50 ML IV SCH ×5 (06:00→18:00)
[2019-03-30 07:00] VITALS: BP 110/64
[2019-03-30] MEDS: ASPIRIN CHEWABLE 81 MG TABLET. PO SCH (09:04)
[2019-03-30] MEDS: LACTOBACILLUS RHAMNOSUS GG 1 CAPSULE. PO SCH (09:06)
[2019-03-30] MEDS: CARVEDILOL 6.25 MG TABLET. PO SCH ×2 (09:06→17:44)
[2019-03-30] MEDS: LISINOPRIL 5 MG TABLET. PO SCH (09:06)
--- NOTE | 2019-03-30 10:44 | PDOC ---
[facility] PROGRESS NOTE Chief Complaint Chief Complaint Resolving Pancreatitis acute colitis, proximal colon, splenic flexure SIRS no sepsis POA no organ dysfunction Leukocytosis, tachycardia CABG 2017 Clean UA Lipase 1285-? Significance AK I VMN-he admitted to poor by mouth intake History of Present Illness History of Present Illness Patient seen and examined States his pain is getting better Clinically he looks like he is as baseline Tolerated breakfast Drink a Dr. Pepper States he needs to have a bowel movement and then go home Labs reviewed Notes reviewed Vitals Vitals Vital Signs Date Time Temp Pulse Resp B/P (MAP) Pulse Ox O2 Delivery O2 Flow Rate FiO2 03/30/19 09:06 75 110/64 03/30/19 07:00 98.5 16 100 Room Air 98.5 Physical Exam General: Alert, Oriented X3, Cooperative, No acute distress Heart: Regular rate, Normal S1 Lungs: Clear Abdomen: Normal bowel sounds, Soft, No tenderness, No hepatosplenomegaly, No masses, Other (scaphoid abdomen, minimal tenderness on palpation) Extremities: No clubbing, No cyanosis, No edema, Normal pulses, No tenderness/swelling Skin: No rashes, No breakdown, No significant lesion Labs Labs: Laboratory Tests Test 03/29/19 17:10 White Blood Count 17.6 x10^3/uL (4.0-11.0) Red Blood Count 4.74 x10^6/uL (4.30-5.70) Hemoglobin 14.6 g/dL (13.0-17.5) Hematocrit 43.2 % (39.0-53.0) Mean Corpuscular Volume 91 fL (79-100) Mean Corpuscular Hemoglobin 31 pg (25-35) Mean Corpuscular Hemoglobin Concent 34 g/dL (31-37) Red Cell Distribution Width 12.9 % (11.5-14.5) Platelet Count 273 x10^3/uL (140-400) Sodium Level 136 mmol/L (136-145) Potassium Level 3.6 mmol/L (3.5-5.1) Chloride Level 99 mmol/L (98-107) Carbon Dioxide Level 26 mmol/L (21-32) Anion Gap 11 (6-14) Blood Urea Nitrogen 15 mg/dL (8-26) Creatinine 1.3 mg/dL (0.7-1.3) Estimated GFR (Cockcroft-Gault) 57.1 BUN/Creatinine Ratio 12 (6-20) Glucose Level 125 mg/dL (70-99) Calcium Level 9.3 mg/dL (8.5-10.1) Total Bilirubin 1.2 mg/dL (0.2-1.0) Aspartate Amino Transf (AST/SGOT) 88 U/L (15-37) Alanine Aminotransferase (ALT/SGPT) 126 U/L (16-63) Alkaline Phosphatase 81 U/L (46-116) Total Protein 7.6 g/dL (6.4-8.2) Albumin 3.1 g/dL (3.4-5.0) Albumin/Globulin Ratio 0.7 (1.0-1.7) Review of Systems Review of Systems No complaints request discharge Assessment and Plan Assessmemt and Plan Problems Medical Problems: (1) Abdominal pain Status: Acute (2) Colitis Status: Acute (3) Pancreatitis Status: Acute Resolving Pancreatitis acute colitis, proximal colon, splenic flexure SIRS no sepsis POA no organ dysfunction Leukocytosis, tachycardia CABG 2017 Clean UA Lipase 1285-? Significance AK I VMN-he admitted to poor by mouth intake Plan Discharge home if tolerates rectus and lunch I discussed this with the nurse check with the subspecialist For now continue current treatment Comment Review of Relevant I have reviewed the following items kojo (where applicable) has been applied. Labs Laboratory Tests Test 03/29/19 17:10 White Blood Count 17.6 x10^3/uL (4.0-11.0) Red Blood Count 4.74 x10^6/uL (4.30-5.70) Hemoglobin 14.6 g/dL (13.0-17.5) Hematocrit 43.2 % (39.0-53.0) Mean Corpuscular Volume 91 fL (79-100) Mean Corpuscular Hemoglobin 31 pg (25-35) Mean Corpuscular Hemoglobin Concent 34 g/dL (31-37) Red Cell Distribution Width 12.9 % (11.5-14.5) Platelet Count 273 x10^3/uL (140-400) Sodium Level 136 mmol/L (136-145) Potassium Level 3.6 mmol/L (3.5-5.1) Chloride Level 99 mmol/L (98-107) Carbon Dioxide Level 26 mmol/L (21-32) Anion Gap 11 (6-14) Blood Urea Nitrogen 15 mg/dL (8-26) Creatinine 1.3 mg/dL (0.7-1.3) Estimated GFR (Cockcroft-Gault) 57.1 BUN/Creatinine Ratio 12 (6-20) Glucose Level 125 mg/dL (70-99) Calcium Level 9.3 mg/dL (8.5-10.1) Total Bilirubin 1.2 mg/dL (0.2-1.0) Aspartate Amino Transf (AST/SGOT) 88 U/L (15-37) Alanine Aminotransferase (ALT/SGPT) 126 U/L (16-63) Alkaline Phosphatase 81 U/L (46-116) Total Protein 7.6 g/dL (6.4-8.2) Albumin 3.1 g/dL (3.4-5.0) Albumin/Globulin Ratio 0.7 (1.0-1.7) Laboratory Tests Test 03/29/19 17:10 White Blood Count 17.6 x10^3/uL (4.0-11.0) Red Blood Count 4.74 x10^6/uL (4.30-5.70) Hemoglobin 14.6 g/dL (13.0-17.5) Hematocrit 43.2 % (39.0-53.0) Mean Corpuscular Volume 91 fL (79-100) Mean Corpuscular Hemoglobin 31 pg (25-35) Mean Corpuscular Hemoglobin Concent 34 g/dL (31-37) Red Cell Distribution Width 12.9 % (11.5-14.5) Platelet Count 273 x10^3/uL (140-400) Sodium Level 136 mmol/L (136-145) Potassium Level 3.6 mmol/L (3.5-5.1) Chloride Level 99 mmol/L (98-107) Carbon Dioxide Level 26 mmol/L (21-32) Anion Gap 11 (6-14) Blood Urea Nitrogen 15 mg/dL (8-26) Creatinine 1.3 mg/dL (0.7-1.3) Estimated GFR (Cockcroft-Gault) 57.1 BUN/Creatinine Ratio 12 (6-20) Glucose Level 125 mg/dL (70-99) Calcium Level 9.3 mg/dL (8.5-10.1) Total Bilirubin 1.2 mg/dL (0.2-1.0) Aspartate Amino Transf (AST/SGOT) 88 U/L (15-37) Alanine Aminotransferase (ALT/SGPT) 126 U/L (16-63) Alkaline Phosphatase 81 U/L (46-116) Total Protein 7.6 g/dL (6.4-8.2) Albumin 3.1 g/dL (3.4-5.0) Albumin/Globulin Ratio 0.7 (1.0-1.7) Medications Current Medications Fentanyl Citrate (Fentanyl 2ml Vial) 50 mcg 1X ONCE IV Last administered on 03/27/19 12:43; Start 03/27/19 at 12:45; Stop 03/27/19 at 12:46; Status DC Ondansetron HCl (Zofran) 4 mg 1X ONCE IV Last administered on 03/27/19 12:41; Start 03/27/19 at 12:45; Stop 03/27/19 at 12:46; Status DC Fentanyl Citrate (Fentanyl 2ml Vial) 50 mcg PRN Q2HR PRN IV PAIN Last administered on 03/28/19 03:35; Start 03/27/19 at 14:30 Ondansetron HCl (Zofran) 4 mg PRN Q6HRS PRN IV NAUSEA/VOMITING Last administered on 03/27/19at 21:41; Start 03/27/19 at 14:30 Acetaminophen (Tylenol) 500 mg PRN Q6HRS PRN PO MILD PAIN / TEMP Last administered on 03/28/19at 23:45; Start 03/27/19 at 14:30 Acetaminophen/ Hydrocodone Bitart (Lortab 5/325) 1 tab PRN Q4HRS PRN PO MODERATE PAIN; Start 03/27/19 at 14:30 Zolpidem Tartrate (Ambien) 5 mg PRN QHS PRN PO INSOMNIA; Start 03/27/19 at 14:3 0 Aspirin (Radha Aspirin) 325 mg DAILY PO Last administered on 03/27/19at 15:42; Start 03/27/19 at 15:00; Stop 03/28/19 at 12:04; Status DC Atorvastatin Calcium (Lipitor) 40 mg QHS PO Last administered on 03/29/19at 21:00; Start 03/28/19 at 21:00 Metoprolol Succinate (Toprol Xl) 25 mg DAILY PO Last administered on 03/27/19at 15:59; Start 03/27/19 at 15:00; Stop 03/28/19 at 12:04; Status DC Tramadol HCl (Ultram) 50 mg PRN Q6HRS PRN PO INCISIONAL PAIN; Start 03/27/19 at 14:30 Ondansetron HCl (Zofran Odt) 4 mg PRN Q6HRS PRN PO NAUSEA/VOMITING; Start 03/27/19 at 14:45 Piperacillin Sod/ Tazobactam Sod (Zosyn Per Pharmacy) 1 each PRN DAILY PRN MC SEE COMMENTS; Start 03/27/19 at 14:30 Piperacillin Sod/ Tazobactam Sod 3.375 gm/Sodium Chloride 50 ml @ 100 mls/hr 1X ONCE IV Last administered on 03/27/19at 15:42; Start 03/27/19 at 14:45; Stop 03/27/19 at 15:14; Status DC Piperacillin Sod/ Tazobactam Sod 3.375 gm/Sodium Chloride 50 ml @ 100 mls/hr Q6HRS IV Last administered on 03/30/19at 06:00; Start 03/27/19 at 19:00 Ondansetron HCl (Zofran) 4 mg PRN Q8HRS PRN IV NAUSEA/VOMITING; Start 03/27/19 at 16:00; Stop 03/28/19 at 15:59; Status DC Fentanyl Citrate (Fentanyl 2ml Vial) 50 mcg PRN Q1HR PRN IV PAIN; Start 03/27/19 at 16:00; Stop 03/28/19 at 15:59; Status DC Sodium Chloride 1,000 ml @ 125 mls/hr 1X ONCE IV Last administered on 03/27/19at 17:29; Start 03/27/19 at 16:00; Stop 03/27/19 at 23:59; Status DC Aspirin (Children'S Aspirin) 81 mg DAILY PO Last administered on 03/30/19at 09:04; Start 03/29/19 at 09:00 Carvedilol (Coreg) 6.25 mg BIDWMEALS PO Last administered on 03/30/19at 09:06; Start 03/28/19 at 17:00 Lisinopril (Prinivil) 2.5 mg DAILY PO Last administered on 03/30/19at 09:06; Start 03/28/19 at 13:00 Rivaroxaban (Xarelto) 20 mg DAILYWSUP PO Last administered on 03/29/19at 17:28; Start 03/28/19 at 17:00 Info (Anti-Coagulation Monitoring By Pharmacy) 1 each PRN DAILY PRN [facility] SEE COMMENTS; Start 03/28/19 at 12:15 Lactobacillus Rhamnosus (Culturelle) 1 cap BID PO Last administered on 03/30/19at 09:06; Start 03/29/19 at 21:00 Active Scripts Active Zofran (Ondansetron Hcl) 4 Mg Tablet 1 Tab PO PRN Q6-8HRS Tramadol Hcl 50 Mg Tablet 50 Mg PO PRN Q6HRS PRN SIG: ONE OR TWO TABS EVERY 6 - 8 HOURS NEEDED FOR PAIN Reported Xarelto (Rivaroxaban) 20 Mg Tablet 20 Mg PO DAILY Coreg (Carvedilol) 6.25 Mg Tablet 6.25 Mg PO BIDWMEALS Lisinopril 2.5 Mg Tablet 1 Tab PO DAILY Aspirin 81 Mg Tab.chew 1 Tab PO DAILY Lipitor (Atorvastatin Calcium) 40 Mg Tablet 40 Mg PO DAILY Vitals/I & O Vital Sign - Last 24 Hours 03/29/19 03/29/19 03/29/19 03/29/19 11:02 15:00 17:00 19:30 Temp 99.0 98.8 99.0 99.0 98.8 99.0 Pulse 74 85 85 88 Resp 18 16 16 B/P (MAP) 114/72 (86) 104/62 (76) 104/62 106/64 (78) Pulse Ox 95 97 99 O2 Delivery Room Air Room Air Room Air 03/29/19 03/29/19 03/30/19 03/30/19 20:00 23:39 03:39 07:00 Temp 98.5 98.5 98.5 98.5 Pulse 75 83 75 Resp 16 16 16 B/P (MAP) 133/74 (93) 110/64 (79) Pulse Ox 97 100 O2 Delivery Room Air Room Air Room Air 03/30/19 03/30/19 09:06 09:06 Pulse 75 75 B/P (MAP) 110/64 110/64 Intake and Output 03/29/19 03/29/19 03/30/19 14:59 22:59 06:59 Intake Total 300 ml 600 ml Output Total 300 ml 600 ml Balance -300 ml 300 ml 0 ml KATHERYN ROMERO III DO Mar 30, 2019 10:44
--- NOTE | 2019-03-30 10:48 | PDOC3 ---
[facility] Summary Date of Admission: Date of Admission: March 27, 2019 Date of Discharge: Date of Discharge: Mar 30, 2019 Admission Diagnosis: Admitting Diagnosis: Pancreatitis colitis Sirs Problems: (1) Chest pain (2) Abnormal EKG (3) History of myocardial infarction (4) ACS (acute coronary syndrome) (5) CAD (coronary artery disease) (6) Ischemic cardiomyopathy (7) Anxiety (8) Colitis (9) Pancreatitis (10) S/P CABG x 2 (11) Abdominal pain Discharge Diagnosis: Discharge Diagnosis: Resolving pancreatitis resolving Sirs resolving colitis recent bypass surgery Consults: Consults: GI and pulmonary Procedures: Procedures: None Hospital Course: Hospital Course: Patient is a pleasant middle-aged male who presented with abdominal pain was noted to have colitis and pancreatitis as lipase was 1200 Give the patient IV fluids consult GI and surgery and pulmonary Over the past few days we been able to slowly advance his diet This morning I saw patient he was as baseline requesting discharge Discharge if okay with subspecialist Disposition: Disposition/Orders: D/C to Home Activity: Activity: Resume previous activity Diet: Diet: Soft Medications: Home Meds Active Scripts Ondansetron Hcl (ZOFRAN) 4 Mg Tablet, 1 TAB PO PRN Q6-8HRS for nausea, #12 TAB Prov:ANA CHANDRA MD 03/27/19 Tramadol Hcl (TRAMADOL HCL) 50 Mg Tablet, 50 MG PO PRN Q6HRS PRN for INCISIONAL PAIN, #40 TAB-CAP 0 Refills SIG: ONE OR TWO TABS EVERY 6 - 8 HOURS NEEDED FOR PAIN Prov:KARLEE OLIVO APRN 11/14/16 Reported Medications Rivaroxaban (XARELTO) 20 Mg Tablet, 20 MG PO DAILY for other, TAB 03/27/19 Carvedilol (COREG ) 6.25 Mg Tablet, 6.25 MG PO BIDWMEALS for CARDIAC, TAB 03/27/19 Lisinopril (LISINOPRIL) 2.5 Mg Tablet, 1 TAB PO DAILY for other, #30 TAB 5 Refills 03/27/19 Aspirin (ASPIRIN) 81 Mg Tab.chew, 1 TAB PO DAILY for other, #30 TAB 3 Refills 03/27/19 Atorvastatin Calcium (LIPITOR) 40 Mg Tablet, 40 MG PO DAILY for FOR CHOLESTEROL, #30 TAB 0 Refills 11/01/16 Scheduled Aspirin (Aspirin), 1 TAB PO DAILY, (Reported) Atorvastatin Calcium (Lipitor), 40 MG PO DAILY, (Reported) Carvedilol (Coreg ), 6.25 MG PO BIDWMEALS, (Reported) Lisinopril (Lisinopril), 1 TAB PO DAILY, (Reported) Ondansetron Hcl (Zofran), 1 TAB PO PRN Q6-8HRS Rivaroxaban (Xarelto), 20 MG PO DAILY, (Reported) Scheduled PRN Tramadol Hcl (Tramadol Hcl), 50 MG PO PRN Q6HRS PRN for INCISIONAL PAIN Total Time: Total Time: 33 minutes KATHERYN ROMERO III DO Mar 30, 2019 10:48
[2019-03-30 11:00] VITALS: BP 96/59
[2019-03-30 15:00] VITALS: BP 97/64
--- NOTE | 2019-03-30 17:17 | NUR ---
Had Dr Ag paged regarding this pt. Per Quinten pt can go home if GI signs off on him. Kimberli said that if pt is not in pain and is keeping food down then he can go home. I will be discharging this pt this evening. Deondre Arenas RN
[2019-03-30] MEDS: RIVAROXABAN 10 MG TABLET. PO SCH (17:43)
[2019-03-30 17:44] VITALS: BP 97/64
--- NOTE | 2019-03-30 18:07 | NUR ---
pt discharged home with self care. no scripts sent home with pt. he was taken home by his spouse. wheeled down to the main entrance. Deondre Arenas RN
== END 2019-03-30 18:23 | disposition home or self-care (01) | DRG 438 ==
LOC: ER 11:13 → 6 SOUTH 14:19
PROVIDERS: ADMIT Internal Medicine; ATTEND Internal Medicine
DX: K85.90 Acute pancreatitis without necrosis or infection, unspecified (principal); N17.0 Acute kidney failure with tubular necrosis; R65.10 Systemic inflammatory response syndrome (SIRS) of non-infectious origin without acute organ dysfunction; E78.5 Hyperlipidemia, unspecified; M19.90 Unspecified osteoarthritis, unspecified site; K52.9 Noninfective gastroenteritis and colitis, unspecified; E78.00 Pure hypercholesterolemia, unspecified; I25.10 Atherosclerotic heart disease of native coronary artery without angina pectoris; I10 Essential (primary) hypertension; I25.2 Old myocardial infarction; Z95.5 Presence of coronary angioplasty implant and graft; Z95.1 Presence of aortocoronary bypass graft; Z88.5 Allergy status to narcotic agent; Z82.49 Family history of ischemic heart disease and other diseases of the circulatory system; Z80.9 Family history of malignant neoplasm, unspecified; Z86.73 Personal history of transient ischemic attack (TIA), and cerebral infarction without residual deficits
CPT/HCPCS: 36415; 74176; 76700; 80048; 80053; 80076; 81001; 83690; 85007; 85025; 85027; 85651; 86705; 86709; 86803; 87340; 96374; 96375; J1200; J1885; J2405; J2543; J3010; J7030; 99285-25